=== PATIENT | female | born 1940 | race Caucasian/White ===

== ENCOUNTER → 2016-08-05 | Outpatient (CLI) | payer OTHER ==
[2016-08-05 14:19] LABS: BLOOD UREA NITROGEN 17 mg/dL (7-22); BUN/CREATININE RATIO 18.88 (6-20); CALCIUM 9.2 mg/dL (8.7-10.7); CHLORIDE 100 meq/L (98-112); CREATININE 0.9 mg/dL (0.50-1.20); GLUCOSE 128 mg/dL (78-110); SODIUM 141 meq/L (135-145)
[2016-08-05 14:20] LABS: ASPARTATE AMINO TRANSFERASE 54 IU/L (8-39); BILIRUBIN,TOTAL 0.7 mg/dL (0.3-1.2); HDL CHOLESTEROL 35 mg/dL (40-150); TOTAL PROTEIN 7.6 g/dL (6.1-8.0); TRIGLYCERIDES 204 mg/dL (44-200)
--- NOTE | 2016-08-05 14:59 | DI ---
XR L-SPINE MIN 4 VW,08/05/2016 11:16 AM: Clinical History: Low back pain Previous Exam: CT chest performed July 06, 2015 Findings: AP, lateral, coned-down lateral and oblique views of the lumbar spine are obtained, and demonstrate a compression deformity of the first lumbar vertebral body of approximately 50% compression. Peripheral vascular calcifications are seen. There is right stool throughout colon. Peripheral vascul ar calcifications are also noted. There is a 12 mm density overlying the right upper abdomen not seen on the CT angiogram. This most li yolanda represents a radiopaque density within the small bowel. Degenerative facet arthropathy is noted. There is no evidence of spondylolysis. There is grade 1 retrolisthesis of L2 on L3. Patient is status post cholecystectomy. There is partial lumbarization of the first sacral vertebral body. Impression: 1. Approximately 50% compression deformity of the first lumbar vertebral body. 2. Diffuse degenerative changes of the lumbar spine.
== END ==
LOC: LAB 11:09
PROVIDERS: ATTEND Obstetrics & Gynecology Gynecology
DX: M54.5 Low back pain (principal); I25.10 Atherosclerotic heart disease of native coronary artery without angina pectoris
CPT/HCPCS: 36415; 72110; 80048; 80061; 80076

== ENCOUNTER 2016-10-05 14:40 | Inpatient (IN) | payer OTHER ==
[2016-10-05] MEDS ORDERED: NORMAL SALINE 10 ML SYRINGE FLUSH IVP PRN ×2 (14:48→19:37)
[2016-10-05 14:56] LABS: BASOPHILS # (AUTO) 0.05 10*3/UL; BASOPHILS % (AUTO) 0.5 % (0-1); EOSINOPHILS % (AUTO) 0.8 % (0-8); HEMATOCRIT 43.6 % (37.0-47.0); HEMOGLOBIN 14.4 g/dL (12.0-16.0); IMM GRAN % (AUTO) 0.2 % (0-5); IMM GRAN# (AUTO) 0.02 10*3/UL; LYMPHOCYTES # (AUTO) 4.92 10*3/uL; LYMPHOCYTES % (AUTO) 47.2 % (10-50); MEAN CORPUSCULAR HEMOGLOBIN 29.7 PG (27-31); MEAN PLATELET VOLUME 12.7 FL (7.4-12.2); MONOCYTES # (AUTO) 0.87 10*3/UL (0.3-0.8); MONOCYTES % (AUTO) 8.3 % (5-15); NEUTROPHILS # (AUTO) 4.49 10*3/UL; RDW COEFFICIENT OF VARIATION 14.7 % (11.5-14.5); RED BLOOD COUNT 4.85 10^6/uL (4.20-5.40); WHITE BLOOD COUNT 10.43 10^3/uL (4.8-10.8)
[2016-10-05 14:57] LABS: PLATELET MORPHOLOGY COMMENT NORMAL MORPHOLOGY (NORM)
[2016-10-05 15:02] LABS: BILIRUBIN,TOTAL 0.7 mg/dL (0.3-1.2); CALCIUM 9.5 mg/dL (8.7-10.7); POTASSIUM 3.8 meq/L (3.8-5.2); TOTAL PROTEIN 7.5 g/dL (6.1-8.0)
[2016-10-05] MEDS: Sodium Chloride 0.9% 1,000 ML PRIMARY IV ONE ×4 (15:33→19:51)
[2016-10-05] MEDS ORDERED: MORPHINE SULFATE 4 MG/1 ML IVP ONE (15:35)
[2016-10-05] MEDS ORDERED: Sodium Chloride 0.9% 1,000 ML PRIMARY IV ONE (16:04)
[2016-10-05 17:52] LABS: BILIRUBIN,URINE SMALL (NEG); CLARITY,URINE Slightly Clo (CLEAR); GLUCOSE, URINE (UA) NEGATIVE (NEG); LEUKOCYTE ESTERASE ,URINE SMALL (NEG); NITRATE,URINE POSITIVE (NEG); OCCULT BLOOD,URINE Trace-intact (NEG); PH,URINE 8.5 (5.0-8.5); PROTEIN,URINE 100 mg/dl (NEG); URINE SAMPLE TYPE CLEAN CATCH URINE
[2016-10-05 17:53] LABS: BACTERIA,URINE FEW; RBC,URINE 0-1 /hpf; SQUAMOUS EPITHELIAL CELL,UR MODERATE
--- NOTE | 2016-10-05 18:41 | DI ---
CT ABDOMEN SCAN WITH IV CONTRAST, 10/05/2016 3:34 PM : Clinical History: Abdominal pain. Previous Exam: None at this facility. Scans are performed from the lower lung bases through the liver and kidneys with IV contrast. 70 ml o f Isovue 300 was injected IV. No rectal or oral contrast was ordered. The lung bases are clear. The liver is normal. The patient is status post cholecystectomy. Both adren al glands and the pancreas are normal. The spleen is small in size and has punctate calcifications th at typically are associated with prior exposure to either TB or histoplasmosis. Both kidneys are norm al in size, shape, position and contour. There is no hydronephrosis or hydroureter. No renal or urete ral calculi are present. There are no abnormal retrocrural or periaortic nodes. No ascites is present . READING: Normal CT abdomen scan. CT PELVIS SCAN WITH IV CONTRAST, 10/05/2016 3:34 PM: Clinical History: See above. Previous Exam: None at this facility. Scans are performed from just superior to the umbilicus to the symphysis pubis with IV contrast. This is the same bolus of contrast used for the CT scans of the abdomen. Scans through the lower abdomen and pelvis show no masses. There is a small amount of fluid in the cu l-de-sac. There is no adenopathy. The appendix is not visualized but there is no inflammatory mass ei ther in the cecal tip or in the right lower quadrant. The small bowel, terminal ileum, and ileocecal valve are normal. The ascending colon and the transverse colon have a normal appearance. Beginning at the splenic flexure and extending throughout the entire descending colon and the sigmoid colon is a diffuse pattern of mucosal thickening with periserosal inflammatory change. This distribution corresp onds to the left colic branch of the inferior mesenteric artery but sparing the distribution of the s uperior, middle, and inferior hemorrhoidal arterial branches. There is no gas in the bowel wall. Ther e is a small umbilical hernia through which only mesenteric fat has herniated. The patient is status post hysterectomy and bilateral salpingo-oophorectomy. READIN. There is abnormal thickening of the bowel wall with periserosal inflammatory/infiltrative change involving the descending colon from the splenic flexure (Jeffers's point) to the distal sigmoid colon. This corresponds to the vascular distribution of the left colic artery excluding the superior hemorr hoidal branch of the RICHARD. Ischemic colitis is suspected. There is no gas in the bowel wall. 2. Ascites.
--- NOTE | 2016-10-05 18:52 | PDOC ---
History and Physical - History of Present Illness Date and Time of Service: 10/05/2016 Chief Complaint: Abdominal pain of 3 days' duration History of Present Illness: This is a 76 years old female with medical history significant for history of hypertension, hypothyroidism and a non-ST HI back in July 2016 who came into the hospital because history of abdominal pain felt in the lower abdomen started about 3 days ago. The pain is constant, was severe when she came into the ER. She did say she vomited once. There was no diarrhea or bleeding per rectum or melena. She said she did have a bowel movement today. In the ER evaluation revealed ischemic colitis and hence the admission. Patient received some morphine in the ER and she rates her pain when I saw her was 4 out of 10. She denied dysuria. No chest pain and no shortness of breath. Past Medical History Medical History: 1. Coronary artery disease with non-ST HI in July 2016. 2. Hypertension. 3. Hypothyroidism. 4. Chronic hypoxemia supposed to be on oxygen but however she doesn't wear it all the time. She supposed to be on 2 L a day Surgical History: History of appendectomy Family History: Reviewed an Not Pertinent Past Social History: Doesn't smoke, rarely drinks no drugs. She moved her from [place] with her in 2014 Tobacco Use: Never Smoker Substance Use Type: None Alcohol Use: Rarely Medication / Allergies Home Medications: Home Medications Medication Instructions Recorded Confirmed Type ALPRAZolam Tab [Xanax Tab] 1 mg PO TID 07/06/15 10/05/16 History Duloxetine HCl 60 mg PO DAILY 07/06/16 10/05/16 History Aspirin [Aspir 81] 81 mg PO DAILY 10/05/16 10/05/16 History Clopidogrel [Plavix] 75 mg PO DAILY 10/05/16 10/05/16 History Furosemide 20 mg PO DAILY 10/05/16 10/05/16 History Levothyroxine Sodium [Levothroid] 175 mcg PO DAILY 10/05/16 10/05/16 History Magnesium Oxide 500 mg PO DAILY 10/05/16 10/05/16 History Metoprolol Tartrate 25 mg PO DAILY 10/05/16 10/05/16 History Potassium [Potassimin] 75 mg PO DAILY 10/05/16 10/05/16 History Allergies/Adverse Reactions: Allergies Allergy/AdvReac Type Severity Reaction Status Date / Time cephalexin monohydrate AdvReac NOT Verified 10/06/16 06:32 [From Keflex] APPLICABLE Review of Systems - Review of Systems All Systems: Reviewed & No Additional Complaints Except as Stated Exam - Vitals Vital Signs: Vital Signs Temperature 97.1 F Temperature Source Temporal Artery Scan Pulse Rate 84 Respiratory Rate 14 Blood Pressure 81/44 Pulse Ox 90 - General General Appearance: POSITIVE: Mild Distress Additional General Exam Details: Pale. - Head Head Exam: POSITIVE: Normal Inspection, Atraumatic - Eye Eye Exam: POSITIVE: Normal Appearance - ENT ENT Exam: POSITIVE: Mucous Membranes Dry - Neck Neck Exam: POSITIVE: Normal Inspection - Respiratory Respiratory Exam: POSITIVE: Clear to Auscultation - Bilaterally - Cardiovascular Cardiovascular Exam: POSITIVE: RRR - GI/Abdominal GI/Abdominal Exam: POSITIVE: Normal Bowel Sounds, Non Distended, Soft Additional GI/Abdominal Exam Details: Tenderness noted mostly in the lower abdomen. No guarding. - Rectal Rectal Exam: POSITIVE: Deferred - External Exam: POSITIVE: Deferred - Extremities Extremities Exam: POSITIVE: Normal Inspection - Back Back Exam: POSITIVE: Normal Inspection - Neurological Neurological Exam: POSITIVE: Alert, Oriented x 3, CN II-XII Intact, Moves All Extremities Equally - Psychiatric Psychiatric Exam: POSITIVE: Flat Affect - Integumentary Integumentary Exam: POSITIVE: Dry Results - Labs CBC and BMP: 10/06/16 05:08 10/06/16 05:08 - EKG Data Rate: Normal EKG Shows Normal: Sinus Rhythm - EKG Data When Compared to Previous EKG(s) There Are: Other (Sinus rhythm with first- degree AV block, low QRS voltage) - Imaging Status: Report Reviewed by Me (CT showed there is abnormal thickening of the bowel wall with. Serosal inflammatory/infiltrative changes involving the descending colon from the splenic flexure to the distal sigmoid. Ischemic colitis is suspected. Small amount of fluid.) Assessment and Plan - Patient Problems (1) Ischemic colitis Current Visit: Yes Status: Acute Comment: We'll keep her nothing by mouth except ice chips, put her on IV fluids and antibiotics. She was seen by Dr. Dorsey recommended supportive care for now. Repeat labs in the morning. Will repeat her lactate tonight. She came into the floor her blood pressure was 64 systolic with give her a bolus of fluids and she responded to the fluid challenge. (2) Hypertension Current Visit: Yes Status: Acute Comment: The daughter said she's been giving her 2 blood pressure medication but however she supposed to be on only one blood pressure medicine. Apparently they prescribed one blood pressure medication at [facility] and she was giving her also the old blood pressure medication which was discontinued. For the time being will hold her blood pressure medicines. She supposed to be only on metoprolol. And she was getting also Univasc. (3) History of coronary artery disease Current Visit: Yes Status: Acute Comment: We'll hold her Plavix and aspirin for now as she may need surgery. (4) DVT prophylaxis Current Visit: Yes Status: Acute Comment: Will put her on SCD boots (5) Possible urinary tract infection Current Visit: Yes Status: Acute Comment: Her UA is abnormal , culture was sent she will be covered with antibiotics for her ischemic colitis and that will also cover for the UTI
--- NOTE | 2016-10-05 19:33 | EKG ---
[address] [place] [address] [place] [address] Measurements Intervals [place] Rate: 79 P: 38 NE: 234 QRS: -2 QRSD: 67 T: 75 QT: 369 QTc: 403 Interpretive Statements SINUS RHYTHM WITH FIRST DEGREE AV BLOCK LOW QRS VOLTAGE [QRS DEFLECTION POSSIBLE OLD INFERIOR MYOCARDIAL INFARCTION Compared to ECG 07/07/2016 12:38:26 First degree AV block now present Electronically Signed On 10-06-16 17:14:55 MST by Yehuda Daigle [email or web address]
[2016-10-05] MEDS ORDERED: LIDOCAINE W/ SODIUM BICARB 0.5 ML SYR SUBD PRN (19:37)
--- NOTE | 2016-10-05 19:46 | CONSULT ---
Consult Note - Consult Consult Date: 10/05/16 Reason for Consult: PreOp Consulation : General Surgery Requesting Physician: Dr. Shirley Primary Care Provider: NONE NONE - History of Present Illness History of Present Illness: This 68-year-old female has a 3 day history of abdominal pain. She states that the pain was initially 10 out of 10 and now is down to 4 out of 10. Patient was given 4 mg of morphine in the emergency department. Patient denies any diarrhea. States her last normal bowel movement was before coming to the hospital. She states that she is not passing gas but again had a bowel movement today. Patient has known vomiting but states that she is nauseated. The pain was there from there first. Patient denies any pain with urination or increased frequency. Patient daughter tells us that they actually doubled up with her blood pressure medicine and apparently since approximately about July. Patient July had possible CA no cardiac stenting are bypass surgery done at this time. Patient currently is on aspirin a day and Plavix. Patient's white count is within normal limits along with her hemoglobin. She did have a slight UTI. CT scan was done which shows that she has a thickened: Starting at the splenic flexure all way down to the rectum. This encompasses the entire descending and sigmoid colon. Patient has some free fluid but there is no free air. Dr. Donohue (the radiologist) please patient has ischemic colitis but not infarcted bowel Review of Systems - Review of Systems -: Patient denies any urinary symptoms. She has abdominal complaints. Has nausea no vomiting. Has no diarrhea. Last bowel movement was today. Patient has any shortness breath or chest pains. Patient has high blood pressure. Patient denies any diabetes. Patient is hypothyroidism and on Synthroid. Review of systems otherwise unremarkable Past Medical History Medical History: 1. Coronary artery disease with non-ST CA in July 2016. 2. Tobacco Use: Former Smoker Substance Use Type: None Medication / Allergies Home Medications: Home Medications Medication Instructions Recorded Confirmed Type ALPRAZolam Tab [Xanax Tab] 1 mg PO TID 07/06/15 10/05/16 History Duloxetine HCl 60 mg PO DAILY 07/06/16 10/05/16 History Aspirin [Aspir 81] 81 mg PO DAILY 10/05/16 10/05/16 History Clopidogrel [Plavix] 75 mg PO DAILY 10/05/16 10/05/16 History Furosemide 20 mg PO DAILY 10/05/16 10/05/16 History Levothyroxine Sodium [Levothroid] 175 mcg PO DAILY 10/05/16 10/05/16 History Magnesium Oxide 500 mg PO DAILY 10/05/16 10/05/16 History Metoprolol Tartrate 25 mg PO DAILY 10/05/16 10/05/16 History Potassium [Potassimin] 75 mg PO DAILY 10/05/16 10/05/16 History Allergies/Adverse Reactions: Allergies Allergy/AdvReac Type Severity Reaction Status Date / Time cephalexin monohydrate AdvReac NOT Verified 10/05/16 16:30 [From Keflex] APPLICABLE Exam - Vitals Vital Signs: Vital Signs Temperature 97.1 F Temperature Source Temporal Artery Scan Pulse Rate 84 Respiratory Rate 14 Blood Pressure 81/44 Pulse Ox 90 - Head Head Exam: POSITIVE: Normocephalic, Atraumatic - Eye Eye Exam: POSITIVE: Normal Appearance, PERRL, EOMI - Neck Neck Exam: POSITIVE: No Tenderness - Respiratory Respiratory Exam: POSITIVE: Clear to Auscultation - Bilaterally, Breathing Non Labored - Cardiovascular Cardiovascular Exam: POSITIVE: RRR, No Murmur - GI/Abdominal GI/Abdominal Exam: POSITIVE: Soft, Distended, Guarding, No Masses, Rebound, No Hepatomegaly, No Splenomegaly - Rectal Rectal Exam: POSITIVE: Deferred Results - Labs CBC and BMP: 10/05/16 14:20 10/05/16 14:20 Assessment and Plan - Patient Problems (1) Ischemic colitis Current Visit: Yes Status: Acute - Assessment / Plan Additional Assessment/Plan Details: I think the patient may have ischemic colitis. Differential diagnosis also has included also of colitis, diverticulitis or microperforation of the bowel. Given the fact that the patient had CA in July she is at high risk for a another myocardial infarction and also surgery would carry increased risk of . I would like to try to stabilize the patient with IV fluids and antibiotics. Usually ischemic colitis is secondary to non-obstructive causes. I think maximizing her rehydration with increased perfusion. If the patient's white count are physical exam should become more worrisome would get a repeat CAT scan. If we need to patient need a surgery which would include a colostomy. Again I think the patient is at high risk for reinfarction in postoperative mortality. This is explained to her and her family.
[2016-10-05] MEDS ORDERED: MORPHINE SULFATE 2 MG/1 ML IVP PRN (19:47)
[2016-10-05] MEDS ORDERED: ONDANSETRON 4 MG/2 ML VIAL IVP PRN (19:48)
[2016-10-05] MEDS: Piperacillin/Tazobactam Inj 3.375 GM in Sodium Chloride 0.9% 100 ML IV SCH (19:58)
[2016-10-05] MEDS: Sodium Chloride 0.9% 1,000 ML PRIMARY IV SCH (20:05)
--- NOTE | 2016-10-05 21:07 | PDOC ---
Abdomen/Flank HPI - General Chief Complaint: Abdomen Pain Stated Complaint: abdominal pain Date Seen by Provider: 10/05/16 Time Seen by Provider: 14:40 Source: POSITIVE: Patient, Other (Daughter) Exam Limitations: POSITIVE: No limitations Nurse's Notes Reviewed & Considered: Yes EMS Report Reviewed & Considered: Verbal - History of Present Illness Initial Comments: The patient is a 76-year-old female who is brought to the emergency room by ambulance. Patient has had some abdominal pain, left greater than right for the last day or so; she states this became worse this morning around 8 AM. She called the ambulance and the ambulance administered the patient 4 mg of morphine sulfate and 4 mg of Zofran in the field. Emesis 1. Patient has had an appendectomy, cholecystectomy, hysterectomy, and a bilateral tubal ligation. An 18-gauge IV was started in the right antecubital area. No known fevers. No chills. No diarrhea. She has not been hungry. Blood pressure on arrival was 92/53. Daughter states that she she takes metoprolol for hypertension. She took Univasc daily for high blood pressure, but this was supposed to have been discontinued in July when patient started metoprolol. However, daughter states that she has been inadvertently given both these antihypertensive agents. No chest pain. Patient was evaluated for chest pain in [place] last year; catheterization reportedly showed a blockage in the coronary artery with good collateral vascularization, and no stenting or other interventions were attempted. Nonsmoker. Body Location Affected: REPORTS: Abdomen Timing: REPORTS: Constant (For 1-2 days. Patient states pain became worse around 8 AM today) Duration: >24 hours (Approximately 24 hours) Severity: Moderate Quality: REPORTS: "Pain" Abdominal Pain Onset Location: REPORTS: LUQ, LLQ, Suprapubic Abdominal Pain Radiation: REPORTS: No radiation Context: REPORTS: None Modifying Factors: improves with: Vomiting (Times one) Associated Symptoms: REPORTS: Denies symptoms, Vomiting (Times one) Similar Symptoms Previously: No Recent Care Received: REPORTS: Denies Any Prior Injuries Related to Current Complaint?: No - Patient Home Medications Home Medications: Home Medications ALPRAZolam Tab [Xanax Tab] 1 mg PO TID 07/06/15 Duloxetine HCl 60 mg PO DAILY 07/06/16 Aspirin [Aspir 81] 81 mg PO DAILY 10/05/16 Clopidogrel [Plavix] 75 mg PO DAILY 10/05/16 Furosemide 20 mg PO DAILY 10/05/16 Levothyroxine Sodium [Levothroid] 175 mcg PO DAILY 10/05/16 Magnesium Oxide 500 mg PO DAILY 10/05/16 Metoprolol Tartrate 25 mg PO DAILY 10/05/16 Potassium [Potassimin] 75 mg PO DAILY 10/05/16 - Patient Allergies Allergies/Adverse Reactions: Allergies Allergy/AdvReac Type Severity Reaction Status Date / Time cephalexin monohydrate AdvReac NOT Verified 10/05/16 16:30 [From [email or web address]] APPLICABLE Past Medical History - heen HEENT History: Denies History Cardiovascular History: Hypertension Respiratory History: Denies History Gastrointestinal History: GERD Genitourinary History: Denies History Endocrine History: Denies History Musculoskeletal History: Other (please comment) Prosthesis or Implant: No Additional Musculoskeletal History: RESTLESS LEG SYNDROME Neurological History: Denies History Blood Disorders: Denies History Psychiatric History: Depression History of Sexually Transmitted Diseases: No Female Reproductive History: Hysterectomy Cancer History: Denies History In Past Year Been Physically Harmed or Verbally Threatened: No History of MDRO: Unknown History of Other Communicable Diseases: No Tobacco Use: Never Smoker Alcohol Use: None Substance Use Type: None Previous Surgical History: Yes Type / Date of Surgery: HYSTERECTOMY. TUBAL. CHOLECYSTECTOMY. TONSILS. APPY Anesthesia Reactions: No Malignant Hyperthermia: No Significant Family History: No pertinent family hx Past Medical History Reviewed: Reviewed - No Changes ROS - Limitations ROS Limitations: No Limitations Constitution: REPORTS: Denies Symptoms Cardiovascular: REPORTS: Denies Cardiac Symptoms Respiratory: REPORTS: Denies Resp Symptoms Neurological: REPORTS: Denies Neuro Symptoms Gastrointestinal: REPORTS: Abdominal Pain, Nausea, Vomitting (Times one) Endocrine: REPORTS: Denies Symptoms Musculoskeletal: REPORTS: Denies MS Symptoms Genitourinary: REPORTS: Denies Symptoms Eyes: REPORTS: Denies Symptoms ENT: REPORTS: Denies Symptoms Skin: REPORTS: Denies Skin Symptoms Lympathic: REPORTS: Denies Lympathic Symptoms Immunologic: POSITIVE: Denies Symptoms Psychiatric: POSITIVE: Denies Psych Symptoms Abdominal/Flank Pain PE - General Appearance General Appearance: POSITIVE: Alert, Cooperative, No Acute Distress, No Evidence of Trauma - HEENT HEENT: POSITIVE: Head Inspection Nml, Eyes Inspection Nml, Ears Inspection Nml, Nose Inspection Nml, Oral/Dental Inspect. Nml, Pharynx Inspect. Nml, PERRL, EOMI - Neck Neck: POSITIVE: Normal Inspection, No Apparent Injury - Respiratory Respiratory: POSITIVE: No Respiratory Distress, Breath Sounds Normal, Chest Non- Tender - Cardiovascular Cardiovascular: POSITIVE: Regular Rate and Rhythm, Heart Sounds Normal, Equal Pulses, Strong Pulses Peripheral Pulses: Radial (R): 2+, Radial (L): 2+, Dorsalis-pedis (R): 2+, Dorsalis-pedis (L): 2+ - Chest Chest: POSITIVE: Non Tender - Abdomen Abdomen: Soft: (All Quadrants), Normal Bowel Sounds: (All Quadrants), Denies Tenderness: (RUQ), (RLQ), No Splenomegaly: (All Quadrants), No Hepatomegaly: ( All Quadrants), No Guarding: (All Quadrants), No Rebound: (All Quadrants), No Palpable Pulse: (All Quadrants), No Palpabale Mass: (All Quadrants), No Distention: (All Quadrants), No Rigidity: (All Quadrants), Tenderness Noted: ( LUQ), (LLQ) Additional Abdominal Details: Abdominal examination shows bowel sounds to be active. Patient indicates pain on palpation over mid abdomen and left upper and left lower quadrants. Abdominal ultrasound showed aorta to be normal. - Back Back: POSITIVE: Normal Inspection. NEGATIVE: CVA Tenderness (R), CVA Tenderness (L) - Skin Skin: POSITIVE: Intact, Normal For Race, Warm, Dry, No Rash - Extremities Extremity: Non-Tender: (All Extremities), Normal ROM: (All Extremities), Normal Inspection: (All Extremities) - Neurological Neurological: POSITIVE: Oriented X3, grounds cleaner Normal As Tested, Motor Normal, Sensation Normal, 5, 6 - Psychological Psychiatric: POSITIVE: Affect Appropriate, Mood Appropriate Images - Complete Complete: 1 - Area of pain Abdomen Progress - Results Reviewed by me Xrays/CTs/US Reviewed by me: Yes Discussed with Radiologist: Yes Radiology Findings: Thickening of colon from splenic flexure distally, compatible with ischemia in the distribution of the left colic artery Lab Results Reviewed: Yes Lab Results:: Laboratory Results 10/05/16 10/05/16 10/05/16 Range/Units 14:20 16:03 16:27 WBC 10.43 (4.8-10.8) 10^3/uL RBC 4.85 (4.20-5.40) 10^6/uL Hgb 14.4 (12.0-16.0) g/dL Hct 43.6 (37.0-47.0) % MCV 89.9 (81-99) FL MCH 29.7 (27-31) PG MCHC 33.0 (33-37) g/dL RDW Std Deviation 48.1 (39-50) fL RDW Coeff of Sharri 14.7 H (11.5-14.5) % Plt Count 372 H (140-350) 10*3/uL MPV 12.7 H (7.4-12.2) FL Immature Gran % (Auto) 0.2 (0-5) % Neut % (Auto) 43.0 L (50-80) % Lymph % (Auto) 47.2 (10-50) % [place] % (Auto) 8.3 (5-15) % Eos % (Auto) 0.8 (0-8) % Baso % (Auto) 0.5 (0-1) % Immature Gran # (Auto) 0.02 10*3/UL Neut # (Auto) 4.49 10*3/UL Lymph # (Auto) 4.92 10*3/uL [place] # (Auto) 0.87 H (0.3-0.8) 10*3/UL Eos # (Auto) 0.08 10*3/UL Baso # (Auto) 0.05 10*3/UL WBC Morphology Comment Normal morphology (NORM) Plt Morphology Comment Normal morphology (NORM) RBC Morph Comment Normal morphology (NORM) VBG pH (7.32-7.42) VBG pCO2 (45-55) mmHg VBG HCO3 (22-26) mmol/L VBG Base Excess (-2-2) MMOL/L Sodium 140 (135-145) meq/L Potassium 3.8 (3.8-5.2) meq/L Chloride 102 (98-112) meq/L Carbon Dioxide 22 L (23-33) meq/L Anion Gap 16 (5-20) BUN 19 (7-22) mg/dL Creatinine 1.0 (0.50-1.20) mg/dL Estimated GFR (>60 ml/min/1.73m(2)) BUN/Creatinine Ratio 19.00 (6-20) Glucose 124 H (78-110) mg/dL Calculated Osmolality 292.0 (267-292) mOsm/kg Lactic Acid 2.9 H (0.70-2.10) MMOL/L Calcium 9.5 (8.7-10.7) mg/dL Total Bilirubin 0.7 (0.3-1.2) mg/dL AST 64 H (8-39) IU/L ALT 18 (9-52) IU/L Alkaline Phosphatase 99 (38-126) IU/L Troponin I < 0.012 (< 0.040) ng/mL Total Protein 7.5 (6.1-8.0) g/dL Albumin 4.2 (3.5-4.8) g/dL Globulin 3.3 (2.50-4.10) g/dL Albumin/Globulin Ratio 1.20 L (1.3-2.0) mg/g Amylase 58 (30-110) U/L Lipase 68 (23-300) IU/L Ur Collection Type Urine Color Urine Clarity (CLEAR) Urine pH (5.0-8.5) Ur Specific [place] (1.005-1.030) Urine Protein (NEG) mg/dl Urine Glucose (UA) (NEG) mg/dL Urine Ketones (NEG) Urine Occult Blood (NEG) Urine Nitrate (NEG) Urine Bilirubin (NEG) Urine Urobilinogen (0.2) EU/dL Ur Leukocyte Esterase (NEG) Urine RBC (NONE) /hpf Urine WBC (NONE) Ur Squamous Epith Cells (NONE) Ur Renal Epithelial Cell (NONE) Urine Crystals Urine Bacteria (NONE) Urine Casts (NONE) Urine Mucus (NONE) Urine Trichomonas (NONE) Urine Yeast (NONE) Ur Culture Indicated? 10/05/16 10/05/16 Range/Units 17:27 17:43 WBC (4.8-10.8) 10^3/uL RBC (4.20-5.40) 10^6/uL Hgb (12.0-16.0) g/dL Hct (37.0-47.0) % MCV (81-99) FL MCH (27-31) PG MCHC (33-37) g/dL RDW Std Deviation (39-50) fL RDW Coeff of Sharri (11.5-14.5) % Plt Count (140-350) 10*3/uL MPV (7.4-12.2) FL Immature Gran % (Auto) (0-5) % Neut % (Auto) (50-80) % Lymph % (Auto) (10-50) % [place] % (Auto) (5-15) % Eos % (Auto) (0-8) % Baso % (Auto) (0-1) % Immature Gran # (Auto) 10*3/UL Neut # (Auto) 10*3/UL Lymph # (Auto) 10*3/uL [place] # (Auto) (0.3-0.8) 10*3/UL Eos # (Auto) 10*3/UL Baso # (Auto) 10*3/UL WBC Morphology Comment (NORM) Plt Morphology Comment (NORM) RBC Morph Comment (NORM) VBG pH 7.39 (7.32-7.42) VBG pCO2 35 L (45-55) mmHg VBG HCO3 21 L (22-26) mmol/L VBG Base Excess -4 L (-2-2) MMOL/L Sodium (135-145) meq/L Potassium (3.8-5.2) meq/L Chloride (98-112) meq/L Carbon Dioxide (23-33) meq/L Anion Gap (5-20) BUN (7-22) mg/dL Creatinine (0.50-1.20) mg/dL Estimated GFR (>60 ml/min/1.73m(2)) BUN/Creatinine Ratio (6-20) Glucose (78-110) mg/dL Calculated Osmolality (267-292) mOsm/kg Lactic Acid (0.70-2.10) MMOL/L Calcium (8.7-10.7) mg/dL Total Bilirubin (0.3-1.2) mg/dL AST (8-39) IU/L ALT (9-52) IU/L Alkaline Phosphatase (38-126) IU/L Troponin I (< 0.040) ng/mL Total Protein (6.1-8.0) g/dL Albumin (3.5-4.8) g/dL Globulin (2.50-4.10) g/dL Albumin/Globulin Ratio (1.3-2.0) mg/g Amylase (30-110) U/L Lipase (23-300) IU/L Ur Collection Type Clean catch urine Urine Color Yellow Urine Clarity Slightly christelle (CLEAR) Urine pH 8.5 (5.0-8.5) Ur Specific [place] 1.010 (1.005-1.030) Urine Protein 100 (NEG) mg/dl Urine Glucose (UA) Negative (NEG) mg/dL Urine Ketones Trace (NEG) Urine Occult Blood Trace-intact H (NEG) Urine Nitrate Positive H (NEG) Urine Bilirubin Small (NEG) Urine Urobilinogen 2.0 (0.2) EU/dL Ur Leukocyte Esterase Small (NEG) Urine RBC 0-1 (NONE) /hpf Urine WBC 9-14 (NONE) Ur Squamous Epith Cells Moderate (NONE) Ur Renal Epithelial Cell None (NONE) Urine Crystals None Urine Bacteria Few (NONE) Urine Casts None (NONE) Urine Mucus None (NONE) Urine Trichomonas None (NONE) Urine Yeast None (NONE) Ur Culture Indicated? Culture set - Patient's Progress Pain Medication Addressed: POSITIVE: Yes (Morphine sulfate) School/Work Release Addressed: POSITIVE: Not Applicable Re-examine Time: 15:30 Re-Examine Comment: Pain somewhat less after hydration and morphine sulfate. Still uncomfortable. Case discussed with Dr. Chester, surgeon. Diagnosis discussed with patient and patient's daughter. Patient admitted for further evaluation and treatment. Status: POSITIVE: Unchanged, Re-Examined - Consult Consult (If Yes, Name of Consulting MD & Time Called): Yes (Meeta Chester and [place], [id number] and 1924) Consulting MD will see pt:: POSITIVE: [facility] [place] Admit Counseled: POSITIVE: Patient, Family, RE: Lab Results, RE: Radiology Results, RE : DX, RE: Need for F/U Patient Care Time - Estimated PCT Patient Care Time (In Minutes): 60 Vital Signs - Recent Vital Signs Vital Signs: Vital Signs (Last 8 hours) Temp Pulse Pulse Resp BP BP BP 10/05/16 20:18 96.9 F 88 16 64/45 10/05/16 18:20 97.1 F 84 14 81/44 10/05/16 14:48 95.8 F L 67 22 92/53 Pulse Ox 10/05/16 20:18 92 10/05/16 18:20 90 10/05/16 14:48 96 - VS Reviewed Vital Signs Reviewed: Yes Discharge Clinical Impression: Mesenteric ischemia, UTI (urinary tract infection) Discharge Disposition: Admit to Inpatient Condition: Good Date Decision to Admit to Inpatient: 10/05/16 Time Decision to Admit to Inpatient: 15:30
[2016-10-06] MEDS: Piperacillin/Tazobactam Inj 3.375 GM in Sodium Chloride 0.9% 100 ML IV SCH ×4 (01:48→19:52)
[2016-10-06] MEDS: Sodium Chloride 0.9% 1,000 ML PRIMARY IV SCH ×4 (04:15→16:31)
[2016-10-06 05:35] LABS: BASOPHILS # (AUTO) 0.01 10*3/UL; BASOPHILS % (AUTO) 0.1 % (0-1); EOSINOPHILS % (AUTO) 0.1 % (0-8); HEMATOCRIT 42.4 % (37.0-47.0); HEMOGLOBIN 13.4 g/dL (12.0-16.0); IMM GRAN % (AUTO) 0.2 % (0-5); IMM GRAN# (AUTO) 0.03 10*3/UL; LYMPHOCYTES # (AUTO) 0.73 10*3/uL; LYMPHOCYTES % (AUTO) 5.6 % (10-50); MEAN CORPUSCULAR HGB CONC 31.6 g/dL (33-37); MEAN PLATELET VOLUME 12.6 FL (7.4-12.2); MONOCYTES # (AUTO) 1.63 10*3/UL (0.3-0.8); MONOCYTES % (AUTO) 12.5 % (5-15); NEUTROPHILS # (AUTO) 10.64 10*3/UL; NEUTROPHILS % (AUTO) 81.5 % (50-80); RED BLOOD COUNT 4.62 10^6/uL (4.20-5.40); WHITE BLOOD COUNT 13.05 10^3/uL (4.8-10.8)
[2016-10-06 05:41] LABS: BUN/CREATININE RATIO 24.54 (6-20); CREATININE 1.1 mg/dL (0.50-1.20); LACTATE 2.9 MMOL/L (0.70-2.10); POTASSIUM 4.9 meq/L (3.8-5.2); TOTAL PROTEIN 5.7 g/dL (6.1-8.0)
[2016-10-06 06:02] LABS: PLATELET MORPHOLOGY COMMENT NORMAL MORPHOLOGY (NORM)
[2016-10-06] MEDS ORDERED: LEVOTHYROXINE 88 MCG TABLET PO SCH (06:30)
--- NOTE | 2016-10-06 07:21 | PDOC(PROG) ---
Date and Time of Service: 10/06/2016 7:19 AM Interval History: Subjective She feels better than yesterday, she did have 2 bowel movements and they were loose. Not sure about blood. Objective : Data - Labs CBC and BMP: 10/06/16 05:08 10/06/16 05:08 Labs - Last 24 Hours: Laboratory Results 10/05/16 10/06/16 Range/Units 22:03 05:08 WBC 13.05 H (4.8-10.8) 10^3/uL RBC 4.62 (4.20-5.40) 10^6/uL Hgb 13.4 (12.0-16.0) g/dL Hct 42.4 (37.0-47.0) % MCV 91.8 (81-99) FL MCH 29.0 (27-31) PG MCHC 31.6 L (33-37) g/dL RDW Std Deviation 49.0 (39-50) fL RDW Coeff of Sharri 15.0 H (11.5-14.5) % Plt Count 349 (140-350) 10*3/uL MPV 12.6 H (7.4-12.2) FL Immature Gran % (Auto) 0.2 (0-5) % Neut % (Auto) 81.5 H (50-80) % Lymph % (Auto) 5.6 L (10-50) % [place] % (Auto) 12.5 (5-15) % Eos % (Auto) 0.1 (0-8) % Baso % (Auto) 0.1 (0-1) % Immature Gran # (Auto) 0.03 10*3/UL Neut # (Auto) 10.64 10*3/UL Lymph # (Auto) 0.73 10*3/uL [place] # (Auto) 1.63 H (0.3-0.8) 10*3/UL Eos # (Auto) 0.01 10*3/UL Baso # (Auto) 0.01 10*3/UL WBC Morphology Comment Normal morphology (NORM) Plt Morphology Comment Normal morphology (NORM) RBC Morph Comment Normal morphology (NORM) Sodium 142 (135-145) meq/L Potassium 4.9 D (3.8-5.2) meq/L Chloride 110 (98-112) meq/L Carbon Dioxide 19 L (23-33) meq/L Anion Gap 13 (5-20) BUN 27 H (7-22) mg/dL Creatinine 1.1 (0.50-1.20) mg/dL Estimated GFR (>60 ml/min/1.73m(2)) BUN/Creatinine Ratio 24.54 H (6-20) Glucose 134 H (78-110) mg/dL Calculated Osmolality 300.0 H (267-292) mOsm/kg Lactic Acid 2.8 H 2.9 H (0.70-2.10) MMOL/L Calcium 8.0 L (8.7-10.7) mg/dL Total Bilirubin 1.0 (0.3-1.2) mg/dL AST 156 H (8-39) IU/L ALT 90 H D (9-52) IU/L Alkaline Phosphatase 82 (38-126) IU/L Total Protein 5.7 L (6.1-8.0) g/dL Albumin 2.8 L (3.5-4.8) g/dL Globulin 2.9 (2.50-4.10) g/dL Albumin/Globulin Ratio 0.90 L (1.3-2.0) mg/g Objective : Exam - General General Appearance: No Acute Distress, Cooperative - Head Head Exam: Normal Inspection, Atraumatic - Eye Eye Exam: Normal Appearance - ENT ENT Exam: Normal Exam - Neck Neck Exam: Normal Inspection - Respiratory Respiratory Exam: Clear to Auscultation - Bilaterally - Cardiovascular Cardiovascular Exam: RRR - GI/Abdominal GI/Abdominal Exam: Normal Bowel Sounds, Non Distended, Soft Additional GI/Abdominal Exam Details: There is no rebound like yesterday, abdomen is soft tenderness is less than yesterday. No organomegaly. - Rectal Rectal Exam: Deferred - External Exam: Deferred - Extremities Extremities Exam: Normal Inspection - Back Back Exam: Normal Inspection - Neurological Neurological Exam: Alert, Oriented x 3, CN II-XII Intact, Moves All Extremities Equally - Psychiatric Psychiatric Exam: Normal Affect - Integumentary Integumentary Exam: Normal Color Assessment and Plan - Patient Problems (1) Ischemic colitis Current Visit: Yes Status: Acute Comment: Continue current antibiotics and fluid. Shortly after I saw the patient blood pressure dropped we gave her a bolus, will give another bolus of fluids, I spoke with Dr. Dorsey, he saw her and planning for surgery. We will use Levophed if we cannot keep her blood pressure up. (2) Hypertension Current Visit: Yes Status: Acute Comment: Continue holding her blood pressure medication for today (3) History of coronary artery disease Current Visit: Yes Status: Acute Comment: Continue holding the Plavix and aspirin for now (4) DVT prophylaxis Current Visit: Yes Status: Acute Comment: She is on SCD boots (5) Possible urinary tract infection Current Visit: Yes Status: Acute Comment: She is covered with antibiotics
[2016-10-06] MEDS ORDERED: Sodium Chloride 0.9% 500 ML IV ONE ×3 (07:27→08:12)
[2016-10-06] MEDS ORDERED: Norepinephrine Drip 8 MG in D5W 250 ML IV SCH (08:45)
[2016-10-06] MEDS ORDERED: NORMAL SALINE 10 ML SYRINGE FLUSH IVP PRN ×2 (08:48→11:50)
[2016-10-06] MEDS ORDERED: ONDANSETRON 4 MG/2 ML VIAL IVP PRN (08:48)
[2016-10-06] MEDS ORDERED: LIDOCAINE W/ SODIUM BICARB 0.5 ML SYR SUBD PRN (08:48)
--- NOTE | 2016-10-06 08:56 | PDOC(PROG) ---
Date and Time of Service: 10/06/2016 at 855 Interval History: Patient states that her pain is little bit better but she is now has developed more hypotension that is not responding to fluid boluses. Patient has been started on Levothroid. Her white count is elevated and she is now running a fever above 101 Objective : Data - Labs CBC and BMP: 10/06/16 05:08 10/06/16 05:08 Labs - Last 24 Hours: Laboratory Results 10/05/16 10/06/16 10/06/16 Range/Units 22:03 05:05 05:08 WBC 13.05 H (4.8-10.8) 10^3/uL RBC 4.62 (4.20-5.40) 10^6/uL Hgb 13.4 (12.0-16.0) g/dL Hct 42.4 (37.0-47.0) % MCV 91.8 (81-99) FL MCH 29.0 (27-31) PG MCHC 31.6 L (33-37) g/dL RDW Std Deviation 49.0 (39-50) fL RDW Coeff of Sharri 15.0 H (11.5-14.5) % Plt Count 349 (140-350) 10*3/uL MPV 12.6 H (7.4-12.2) FL Immature Gran % (Auto) 0.2 (0-5) % Neut % (Auto) 81.5 H (50-80) % Lymph % (Auto) 5.6 L (10-50) % [place] % (Auto) 12.5 (5-15) % Eos % (Auto) 0.1 (0-8) % Baso % (Auto) 0.1 (0-1) % Immature Gran # (Auto) 0.03 10*3/UL Neut # (Auto) 10.64 10*3/UL Lymph # (Auto) 0.73 10*3/uL [place] # (Auto) 1.63 H (0.3-0.8) 10*3/UL Eos # (Auto) 0.01 10*3/UL Baso # (Auto) 0.01 10*3/UL WBC Morphology Comment Normal morphology (NORM) Plt Morphology Comment Normal morphology (NORM) RBC Morph Comment Normal morphology (NORM) Sodium 142 (135-145) meq/L Potassium 4.9 D (3.8-5.2) meq/L Chloride 110 (98-112) meq/L Carbon Dioxide 19 L (23-33) meq/L Anion Gap 13 (5-20) BUN 27 H (7-22) mg/dL Creatinine 1.1 (0.50-1.20) mg/dL Estimated GFR (>60 ml/min/1.73m(2)) BUN/Creatinine Ratio 24.54 H (6-20) Glucose 134 H (78-110) mg/dL Calculated Osmolality 300.0 H (267-292) mOsm/kg Lactic Acid 2.8 H 2.9 H (0.70-2.10) MMOL/L Calcium 8.0 L (8.7-10.7) mg/dL Total Bilirubin 1.0 (0.3-1.2) mg/dL AST 156 H (8-39) IU/L ALT 90 H D (9-52) IU/L Alkaline Phosphatase 82 (38-126) IU/L Troponin I < 0.012 (< 0.040) ng/mL Total Protein 5.7 L (6.1-8.0) g/dL Albumin 2.8 L (3.5-4.8) g/dL Globulin 2.9 (2.50-4.10) g/dL Albumin/Globulin Ratio 0.90 L (1.3-2.0) mg/g - Vital Signs Vital Signs and I&O: Vital Signs - Last Taken Temperature 97.6 F 10/06/16 08:49 Pulse Rate 73 10/06/16 08:49 Respiratory Rate 16 10/06/16 08:49 Blood Pressure 68/41 10/06/16 08:49 Pulse Ox 95 10/06/16 08:49 Intake and Output (24hr x 4 totals) 10/04/16 10/05/16 10/06/16 10/07/16 05:59 05:59 05:59 05:59 Intake Total 2311 150 Output Total 495 Balance 1816 150 Objective : Exam - GI/Abdominal GI/Abdominal Exam: Distended, Guarding, Rebound Assessment and Plan - Patient Problems (1) Ischemic colitis Current Visit: Yes Status: Acute - Assessment / Plan Additional Assessment/Plan Details: Since patient's white count is going up and afebrile and given the fact that she is now hypotensive unresponsive to fluid boluses I think the patient's condition is deteriorating. Even though she is extremely high risk for postoperative morbidity and mortality I do think the only thing we can do at this time is to exploratory surgery possible left colon resection and colostomy. This is explained to her she understands this. Alternative option is just concerned continue medical management. She understands the differentiation between the 2 and has elected to have surgery.
[2016-10-06] MEDS ORDERED: LEVOTHYROXINE SODIUM 175 MCG PO SCH (09:00)
[2016-10-06] MEDS ORDERED: Lactated Ringers 1,000 ML PRIMARY IV ONE ×2 (09:01→10:00)
[2016-10-06] MEDS ORDERED: ETOMIDATE 2 MG/1 ML - 20 ML IVP ONE (09:13)
[2016-10-06] MEDS ORDERED: MIDAZOLAM 5 MG/1 ML ONE (09:13)
[2016-10-06] MEDS ORDERED: fentaNYL Inj 250 MCG/5 ML VIAL ONE (09:13)
[2016-10-06] MEDS ORDERED: Sodium Chloride 0.9% vial 0 ML ONE (09:14)
[2016-10-06] MEDS ORDERED: VECURONIUM BROMIDE 10 MG VIAL ONE (09:14)
[2016-10-06] MEDS: Norepinephrine Drip 8 MG in D5W 250 ML IV SCH ×3 (09:35→17:35)
--- NOTE | 2016-10-06 09:41 | DI ---
ABDOMINAL AORTIC ULTRASOUND, 10/05/2016 2:49 PM Clinical History: Abdominal pain. Previous Exam: None at this facility. Scans are performed in multiple projections through the length of the aorta and iliac arteries with t he high resolution linear array probe. Color Doppler ultrasound was also performed. The abdominal aorta is visualized from the upper abdominal region to the bifurcation. The caliber is normal throughout. There is no evidence of plaque disease. Reading: Normal abdominal aortic ultrasound exam.
[2016-10-06] MEDS ORDERED: Sodium Chloride 0.9% 500 ML ONE ×2 (10:01→13:16)
[2016-10-06] MEDS ORDERED: LIDOCAINE W/ SODIUM BICARB 0.5 ML SYR ONE ×2 (10:01→13:19)
[2016-10-06] MEDS ORDERED: Albumin Human Soln 25% 200 ML IV ONE (10:44)
[2016-10-06] MEDS ORDERED: LIDOCAINE HCL 2 % 10 ML JELLY URO-JECT TOPICAL ONE (11:03)
[2016-10-06] MEDS ORDERED: Lactated Ringers 4,000 ML PRIMARY IV ONE (11:16)
[2016-10-06 11:19] LABS: ABG BASE EXCESS -8 MMOL/L (-2-2); ABG HCO3 18 (22-26); ABG PH 7.32 (7.35-7.45); ABG TCO2 19 MMOL/L (23-27); COLLECTION SITE ART LINE
[2016-10-06 11:20] LABS: ABG OXYGEN SATURATION 99 % (90-100); ALLEN TEST N
[2016-10-06] MEDS ORDERED: fentaNYL Inj 100 MCG/2 ML VIAL IVP PRN (11:53)
[2016-10-06] MEDS ORDERED: Prochlorperazine Edisylate Inj 10mg/2ml vial IVP PRN (11:53)
[2016-10-06] MEDS ORDERED: KETAMINE 100 MG/1 ML - 5 ML ONE (11:56)
[2016-10-06] MEDS ORDERED: Lactated Ringers 1,000 ML PRIMARY IV SCH (12:00)
[2016-10-06] MEDS ORDERED: GLYCOPYRROLATE 0.2 MG/1 ML VIAL ONE (12:36)
[2016-10-06] MEDS ORDERED: NEOSTIGMINE 1 MG/1 ML - 10 ML ONE (12:36)
[2016-10-06] MEDS ORDERED: HEPARIN 500 UNIT/5 ML SYRINGE FOR CENTRAL LINE IVP ONE ×2 (12:42→12:43)
[2016-10-06] MEDS: HYDROmorphone 2 MG/1 ML IVP PRN ×2 (13:26→13:34)
--- NOTE | 2016-10-06 13:58 | GEN.OPNOTE ---
Operative Note Surgery Date: 10/06/16 Preoperative Diagnosis: Ischemic colitis Postoperative Diagnosis: Ischemic colitis with sepsis Procedure: Left hemicolectomy with a colostomy Surgeon: Pablo Dorsey MD Printer Helper: Amari Robins MD Anesthesia Provider: Lorenzo Alejandro CRNA Anesthesia Type: General Estimated Blood Loss (mL): 250 Fluids: Lactated Ringer's please see anesthesia notes in EMR Pathology: Leftcolon Sent Indications: Patient was admitted with abdominal pain. CT scan was consistent with ischemic colitis. Patient is tried with conservative management with IV fluids and antibiotics. Patient developed what appeared to be sepsis therefore need to be taken the OR Findings: Ischemic colitis of the entire left colon Complications: None Operative Summary: Patient brought in operative room. Placed supine position. Given general tracheal anesthesia. Prepped draped sterile fashion. Timeout performed per protocols. Made a midline incision incision from the xiphoid process to the pubic symphysis. Hemostased electrocautery dissection to subcutaneous tissue with electrocautery cautery. Dissected in the linea alba with left cautery and then bluntly into the abdominal cavity through the perineum. . I then explored the abdominal cavity and found the patient to have 300 mL of purulent material in the pelvis and above the liver. This is all washed out and aspirated. The Patient's left colon was thickened. This is the area that was consistent with ischemic colitis on CT scan. I went down to an area above the rectum that look to be viable. I Maded a defect in the mesentery and fired the stapler across the just above rectum. I then dissected out the sigmoid colon which appeared the most involved. I placed and fired the linear stapler dividing the bowel. Clamp divided the mesentery I removed a portion the colon. The colon was opened on the back table it had ischemic colitis of the mucosa. This was appeared be infarcted bowel. Therefore I resected a mobilize entire left colon taken down the splenic flexure. We then fired the stapler across what appeared to be the proximal transverse colon. There we then clamped divided the mesentery handed off the colon as surgical specimen. We then mobilize the colon from its mesenteric attachments of breath and given of length to bring out a colostomy. We then made a small defect in the lateral aspect of abdominal wall just above the level of the umbilicus. I then made a defect in the fascia and brought out the bowel for colostomy. We irrigated until clear. We reinspected there appeared to be a little hematoma at the inferior aspect of the spleen. This appeared be a very small capsular tear. Gentle pressure was held on this and there is no active bleeding. We irrigated until clear. Satisfied is adequate hemostasis. We then closed the midline incision with #1 Prolene continuous running suture. Started at this. Aspect incision and ran this to above the umbilicus and then finished started on the inferior aspect incision ran a backup to the other suture line. Skin was irrigated and we closed the skin with milagro. I then resected some more the small bowel and brought out via skin level colostomy and matured this. A colostomy bag was then placed. Patient tolerated procedure well the were no complications. Patient Problems - Patient Problem List (1) Ischemic colitis Current Visit: Yes Status: Acute
[2016-10-06] MEDS ORDERED: SODIUM BICARBONATE 8.4% - 50 ML ADULT SYRINGE ONE (14:17)
[2016-10-06 14:21] LABS: COLLECTION SITE ART LINE
[2016-10-06 14:22] LABS: ABG BASE EXCESS -11 MMOL/L (-2-2); ABG HCO3 17 (22-26); ABG OXYGEN SATURATION 85 % (90-100); ABG TCO2 19 MMOL/L (23-27); ALLEN TEST N
--- NOTE | 2016-10-06 14:23 | CD ---
[facility] [place] [email or web address]
[2016-10-06 14:26] LABS: FIO2/O2 60%
[2016-10-06 15:06] LABS: COLLECTION SITE ART LINE
[2016-10-06 15:07] LABS: ABG BASE EXCESS -8 MMOL/L (-2-2); ABG HCO3 22 (22-26); ABG OXYGEN SATURATION 91 % (90-100); ABG PH 7.09 (7.35-7.45); ABG TCO2 24 MMOL/L (23-27); ALLEN TEST N
[2016-10-06 15:09] LABS: FIO2/O2 6LPM
--- NOTE | 2016-10-06 15:42 | DI ---
AP CHEST X-RAY, 10/06/2016 1:00 PM : Clinical History: Bowel ischemia. Sepsis. Status post insertion of a right subclavian line. Verificat ion of catheter position. Previous Exam: 07/06/2016. On this view, the patient took a very shallow inspiration. There is no acute soft tissue or bony abno rmality. The right subclavian catheter terminates in the distal superior vena cava. There is cardiome harper without CHF. The descending aorta is quite prominent. When stable, a CT scan of the chest prefer ably with IV contrast is recommended. There is no acute infiltrate or effusion. There is no pneumotho rax. Mediastinal structures are normal. There are no pulmonary nodules. Readin. There is no pneumothorax and the catheter tip is in the distal superior vena cava. 2. Cardiomegaly without CHF. 3. The descending aorta is quite prominent and when the patient is stabilized, a CT scan of the ches t is recommended. This should be performed with IV contrast if the patient can tolerate the contrast.
[2016-10-06] MEDS: Lactated Ringers 1,000 ML PRIMARY IV SCH ×2 (15:45→21:12)
[2016-10-06 15:56] LABS: ABG PH 7.12 (7.35-7.45); COLLECTION SITE Art Line
[2016-10-06 15:57] LABS: ABG BASE EXCESS -7 MMOL/L (-2-2); ABG HCO3 23 (22-26); ABG OXYGEN SATURATION 91 % (90-100); ABG TCO2 25 MMOL/L (23-27); ALLEN TEST N
[2016-10-06 15:58] LABS: FIO2/O2 6L SM
[2016-10-06 16:57] LABS: ABG HCO3 23 (22-26); ABG PH 7.26 (7.35-7.45); ABG TCO2 25 MMOL/L (23-27); COLLECTION SITE ART LINE
[2016-10-06 16:58] LABS: ABG BASE EXCESS -4 MMOL/L (-2-2); ABG OXYGEN SATURATION 93 % (90-100); ALLEN TEST N
[2016-10-06 16:59] LABS: FIO2/O2 93
[2016-10-06 18:41] LABS: ABG BASE EXCESS -6 MMOL/L (-2-2); ABG HCO3 21 (22-26); ABG OXYGEN SATURATION 96 % (90-100); ABG PH 7.29 (7.35-7.45); ABG TCO2 22 MMOL/L (23-27); ALLEN TEST N; COLLECTION SITE ART LINE
[2016-10-06 18:42] LABS: FIO2/O2 70%
[2016-10-06 20:16] LABS: HEMATOCRIT 35.4 % (37.0-47.0); HEMOGLOBIN 11.3 g/dL (12.0-16.0); MEAN CORPUSCULAR HEMOGLOBIN 29.9 PG (27-31); MEAN CORPUSCULAR HGB CONC 31.9 g/dL (33-37); MEAN PLATELET VOLUME 12.5 FL (7.4-12.2); RDW COEFFICIENT OF VARIATION 15.3 % (11.5-14.5); RED BLOOD COUNT 3.78 10^6/uL (4.20-5.40)
[2016-10-06 20:24] LABS: BILIRUBIN,TOTAL 1.1 mg/dL (0.3-1.2); BUN/CREATININE RATIO 27.77 (6-20); CALCIUM 7.9 mg/dL (8.7-10.7); CREATININE 0.9 mg/dL (0.50-1.20); POTASSIUM 4.5 meq/L (3.8-5.2)
[2016-10-06 20:37] LABS: PLATELET MORPHOLOGY COMMENT NORMAL MORPHOLOGY (NORM)
[2016-10-06 20:38] LABS: BAND NEUTROPHILS % 16 % (0-10); BASOPHILS % (MANUAL) 0 % (0-1); EOSINOPHILS % (MANUAL) 0 % (0-8); LYMPHOCYTES % (MANUAL) 35 % (10-50); METAMYELOCYTES % 2 %; MONOCYTES % (MANUAL) 6 % (0-12); NEUTROPHILS % (MANUAL) 41 % (50-80)
[2016-10-06] MEDS: MORPHINE SULFATE 2 MG/1 ML IVP PRN (22:08)
[2016-10-06 23:49] LABS: COLLECTION SITE ART LINE
[2016-10-06 23:50] LABS: ABG BASE EXCESS -5 MMOL/L (-2-2); ABG HCO3 21 (22-26); ABG OXYGEN SATURATION 98 % (90-100); ABG PH 7.35 (7.35-7.45); ABG TCO2 22 MMOL/L (23-27); ALLEN TEST N; FIO2/O2 70%
[2016-10-07] MEDS: MORPHINE SULFATE 2 MG/1 ML IVP PRN ×3 (01:10→08:46)
[2016-10-07] MEDS: Piperacillin/Tazobactam Inj 3.375 GM in Sodium Chloride 0.9% 100 ML IV SCH ×3 (01:19→13:47)
[2016-10-07] MEDS ORDERED: HALOPERIDOL LACTATE 5 MG/1 ML AMPULE IVP ONE (03:15)
[2016-10-07] MEDS: Lactated Ringers 1,000 ML PRIMARY IV SCH ×2 (03:47→10:30)
[2016-10-07 06:18] LABS: ALLEN TEST N; COLLECTION SITE Art Line; FIO2/O2 60% Vapo
[2016-10-07 06:20] LABS: ABG HCO3 21 (22-26); ABG PH 7.38 (7.35-7.45); ABG TCO2 22 MMOL/L (23-27)
[2016-10-07 06:21] LABS: ABG BASE EXCESS -5 MMOL/L (-2-2); ABG OXYGEN SATURATION 95 % (90-100)
[2016-10-07] MEDS ORDERED: LEVOTHYROXINE 88 MCG TABLET PO SCH (06:30)
[2016-10-07 06:33] LABS: BASOPHILS # (AUTO) 0.01 10*3/UL; BASOPHILS % (AUTO) 0.1 % (0-1)
[2016-10-07 06:42] LABS: BILIRUBIN,TOTAL 1.4 mg/dL (0.3-1.2); BUN/CREATININE RATIO 24.44 (6-20); CREATININE 0.9 mg/dL (0.50-1.20); EOSINOPHILS % (AUTO) 0.4 % (0-8); HEMOGLOBIN 11.3 g/dL (12.0-16.0); IMM GRAN % (AUTO) 0.3 % (0-5); IMM GRAN# (AUTO) 0.03 10*3/UL; LYMPHOCYTES # (AUTO) 1.03 10*3/uL; LYMPHOCYTES % (AUTO) 10.1 % (10-50); MEAN CORPUSCULAR HEMOGLOBIN 30.1 PG (27-31); MEAN CORPUSCULAR HGB CONC 32.3 g/dL (33-37); MEAN PLATELET VOLUME 13.3 FL (7.4-12.2); MONOCYTES # (AUTO) 1.38 10*3/UL (0.3-0.8); MONOCYTES % (AUTO) 13.5 % (5-15); NEUTROPHILS # (AUTO) 7.73 10*3/UL; NEUTROPHILS % (AUTO) 75.6 % (50-80); POTASSIUM 4.3 meq/L (3.8-5.2); RDW COEFFICIENT OF VARIATION 15.5 % (11.5-14.5); RED BLOOD COUNT 3.75 10^6/uL (4.20-5.40); TOTAL PROTEIN 5.1 g/dL (6.1-8.0); WHITE BLOOD COUNT 10.22 10^3/uL (4.8-10.8)
[2016-10-07 06:47] LABS: PLATELET MORPHOLOGY COMMENT NORMAL MORPHOLOGY (NORM)
[2016-10-07] MEDS: Norepinephrine Drip 8 MG in D5W 250 ML IV SCH ×2 (08:03→08:47)
--- NOTE | 2016-10-07 08:38 | GEN.OPNOTE ---
Operative Note Surgery Date: 10/06/16 Preoperative Diagnosis: Sepsis with ischemic bowel Postoperative Diagnosis: Sepsis with ischemic bowel Procedure: Insertion of a central line Surgeon: Pablo Dorsey MD Anesthesia Provider: Lorenzo Alejandro CRNA Anesthesia Type: General Estimated Blood Loss (mL): 2 Operative Summary: After the patient had a colon resection with colostomy a central line was needed. Surgical team re-prepped draped. Patient was prepped draped sterile fashion Timeout performed per protocols. I decided to use right subclavian vein. Large bore needle was inserted into the subclavian vein without any difficulty. Guidewire was placed. Using Seldinger technique central line was placed. The line is placed to 15 cm. There is secured in place. All 3 ports were aspirated and flushed with 3 mL of heparinized saline. Chest x-ray showed that there is no pneumothorax line in good position. Sterile dressing applied Patient Problems - Patient Problem List (1) Ischemic colitis Current Visit: Yes Status: Acute
[2016-10-07] MEDS ORDERED: NALOXONE 0.4 MG/1 ML VIAL IVP PRN (08:51)
--- NOTE | 2016-10-07 08:51 | PDOC(PROG) ---
Subjective Post Op Day: postop day 1 Hoyos Catheter: Yes Flatus: No Diet: NPO Ambulating: No Date and Time of Service: 10/07/2016 at 848 Interval History: Patient is actually doing better today. She is having no discomfort. Objective : Data - Labs CBC and BMP: 10/07/16 05:54 10/07/16 05:54 Labs - Last 24 Hours: Laboratory Results 10/06/16 10/06/16 10/06/16 Range/Units 08:54 11:01 13:11 WBC (4.8-10.8) 10^3/uL RBC (4.20-5.40) 10^6/uL Hgb (12.0-16.0) g/dL Hct (37.0-47.0) % MCV (81-99) FL MCH (27-31) PG MCHC (33-37) g/dL RDW Std Deviation (39-50) fL RDW Coeff of Sharri (11.5-14.5) % Plt Count (140-350) 10*3/uL MPV (7.4-12.2) FL Immature Gran % (Auto) (0-5) % Neut % (Auto) (50-80) % Lymph % (Auto) (10-50) % [place] % (Auto) (5-15) % Eos % (Auto) (0-8) % Baso % (Auto) (0-1) % Immature Gran # (Auto) 10*3/UL Neut # (Auto) 10*3/UL Lymph # (Auto) 10*3/uL [place] # (Auto) (0.3-0.8) 10*3/UL Eos # (Auto) 10*3/UL Baso # (Auto) 10*3/UL Neutrophils % (Manual) (50-80) % Band Neutrophils % (0-10) % Lymphocytes % (Manual) (10-50) % Monocytes % (Manual) (0-12) % Eosinophils % (Manual) (0-8) % Basophils % (Manual) (0-1) % Metamyelocytes % % Myelocytes % Promyelocytes % Blast Cells WBC Morphology Comment (NORM) Plt Morphology Comment (NORM) RBC Morph Comment (NORM) ABG pH 7.32 L 7.20 L (7.35-7.45) ABG pCO2 35 44 H (34-38) MMHG ABG pO2 163 H 61 L (65-75) MMHG ABG HCO3 18 L 17 L (22-26) ABG Total CO2 19 L 19 L (23-27) MMOL/L ABG O2 Saturation 99 85 L (90-100) % ABG Base Excess -8 L -11 L (-2-2) MMOL/L Yoandy Test N N FiO2 100% vent 60% Sodium (135-145) meq/L Potassium (3.8-5.2) meq/L Chloride (98-112) meq/L Carbon Dioxide (23-33) meq/L Anion Gap (5-20) BUN (7-22) mg/dL Creatinine (0.50-1.20) mg/dL Estimated GFR (>60 ml/min/1.73m(2)) BUN/Creatinine Ratio (6-20) Glucose (78-110) mg/dL Calculated Osmolality (267-292) mOsm/kg Lactic Acid (0.70-2.10) MMOL/L Calcium (8.7-10.7) mg/dL Total Bilirubin (0.3-1.2) mg/dL AST (8-39) IU/L ALT (9-52) IU/L Alkaline Phosphatase (38-126) IU/L Total Protein (6.1-8.0) g/dL Albumin (3.5-4.8) g/dL Globulin (2.50-4.10) g/dL Albumin/Globulin Ratio (1.3-2.0) mg/g Blood Type A POSITIVE Antibody Screen Negative Crossmatch See Detail 10/06/16 10/06/16 10/06/16 Range/Units 14:26 15:42 16:38 WBC (4.8-10.8) 10^3/uL RBC (4.20-5.40) 10^6/uL Hgb (12.0-16.0) g/dL Hct (37.0-47.0) % MCV (81-99) FL MCH (27-31) PG MCHC (33-37) g/dL RDW Std Deviation (39-50) fL RDW Coeff of Sharri (11.5-14.5) % Plt Count (140-350) 10*3/uL MPV (7.4-12.2) FL Immature Gran % (Auto) (0-5) % Neut % (Auto) (50-80) % Lymph % (Auto) (10-50) % [place] % (Auto) (5-15) % Eos % (Auto) (0-8) % Baso % (Auto) (0-1) % Immature Gran # (Auto) 10*3/UL Neut # (Auto) 10*3/UL Lymph # (Auto) 10*3/uL [place] # (Auto) (0.3-0.8) 10*3/UL Eos # (Auto) 10*3/UL Baso # (Auto) 10*3/UL Neutrophils % (Manual) (50-80) % Band Neutrophils % (0-10) % Lymphocytes % (Manual) (10-50) % Monocytes % (Manual) (0-12) % Eosinophils % (Manual) (0-8) % Basophils % (Manual) (0-1) % Metamyelocytes % % Myelocytes % Promyelocytes % Blast Cells WBC Morphology Comment (NORM) Plt Morphology Comment (NORM) RBC Morph Comment (NORM) ABG pH 7.09 L 7.12 L 7.26 L (7.35-7.45) ABG pCO2 73 H 69 H 52 H (34-38) MMHG ABG pO2 86 H 81 H 79 H (65-75) MMHG ABG HCO3 22 23 23 (22-26) ABG Total CO2 24 25 25 (23-27) MMOL/L ABG O2 Saturation 91 91 93 (90-100) % ABG Base Excess -8 L -7 L -4 L (-2-2) MMOL/L Yoandy Test N N N FiO2 6lpm 6l sm 93 Sodium (135-145) meq/L Potassium (3.8-5.2) meq/L Chloride (98-112) meq/L Carbon Dioxide (23-33) meq/L Anion Gap (5-20) BUN (7-22) mg/dL Creatinine (0.50-1.20) mg/dL Estimated GFR (>60 ml/min/1.73m(2)) BUN/Creatinine Ratio (6-20) Glucose (78-110) mg/dL Calculated Osmolality (267-292) mOsm/kg Lactic Acid (0.70-2.10) MMOL/L Calcium (8.7-10.7) mg/dL Total Bilirubin (0.3-1.2) mg/dL AST (8-39) IU/L ALT (9-52) IU/L Alkaline Phosphatase (38-126) IU/L Total Protein (6.1-8.0) g/dL Albumin (3.5-4.8) g/dL Globulin (2.50-4.10) g/dL Albumin/Globulin Ratio (1.3-2.0) mg/g Blood Type Antibody Screen Crossmatch 10/06/16 10/06/16 10/06/16 Range/Units 18:17 20:12 22:51 WBC 5.90 (4.8-10.8) 10^3/uL RBC 3.78 L (4.20-5.40) 10^6/uL Hgb 11.3 L (12.0-16.0) g/dL Hct 35.4 L (37.0-47.0) % MCV 93.7 (81-99) FL MCH 29.9 (27-31) PG MCHC 31.9 L (33-37) g/dL RDW Std Deviation 49.9 (39-50) fL RDW Coeff of Sharri 15.3 H (11.5-14.5) % Plt Count 278 (140-350) 10*3/uL MPV 12.5 H (7.4-12.2) FL Immature Gran % (Auto) (0-5) % Neut % (Auto) (50-80) % Lymph % (Auto) (10-50) % [place] % (Auto) (5-15) % Eos % (Auto) (0-8) % Baso % (Auto) (0-1) % Immature Gran # (Auto) 10*3/UL Neut # (Auto) 10*3/UL Lymph # (Auto) 10*3/uL [place] # (Auto) (0.3-0.8) 10*3/UL Eos # (Auto) 10*3/UL Baso # (Auto) 10*3/UL Neutrophils % (Manual) 41 L (50-80) % Band Neutrophils % 16 H (0-10) % Lymphocytes % (Manual) 35 (10-50) % Monocytes % (Manual) 6 (0-12) % Eosinophils % (Manual) 0 (0-8) % Basophils % (Manual) 0 (0-1) % Metamyelocytes % 2 % Myelocytes % Not Reportable Promyelocytes % Not Reportable Blast Cells Not Reportable WBC Morphology Comment Normal morphology (NORM) Plt Morphology Comment Normal morphology (NORM) RBC Morph Comment Normal morphology (NORM) ABG pH 7.29 L 7.35 (7.35-7.45) ABG pCO2 43 H 38 (34-38) MMHG ABG pO2 94 H 102 H (65-75) MMHG ABG HCO3 21 L 21 L (22-26) ABG Total CO2 22 L 22 L (23-27) MMOL/L ABG O2 Saturation 96 98 (90-100) % ABG Base Excess -6 L -5 L (-2-2) MMOL/L Yoandy Test N N FiO2 70% 70% Sodium 143 (135-145) meq/L Potassium 4.5 (3.8-5.2) meq/L Chloride 110 (98-112) meq/L Carbon Dioxide 22 L (23-33) meq/L Anion Gap 11 (5-20) BUN 25 H (7-22) mg/dL Creatinine 0.9 (0.50-1.20) mg/dL Estimated GFR (>60 ml/min/1.73m(2)) BUN/Creatinine Ratio 27.77 H (6-20) Glucose 93 (78-110) mg/dL Calculated Osmolality 299.0 H (267-292) mOsm/kg Lactic Acid (0.70-2.10) MMOL/L Calcium 7.9 L (8.7-10.7) mg/dL Total Bilirubin 1.1 (0.3-1.2) mg/dL AST 81 H (8-39) IU/L ALT 84 H (9-52) IU/L Alkaline Phosphatase 59 (38-126) IU/L Total Protein 5.0 L (6.1-8.0) g/dL Albumin 2.7 L (3.5-4.8) g/dL Globulin 2.3 L (2.50-4.10) g/dL Albumin/Globulin Ratio 1.10 L (1.3-2.0) mg/g Blood Type Antibody Screen Crossmatch 10/06/16 10/07/16 10/07/16 Range/Units 23:15 05:54 06:14 WBC 10.22 (4.8-10.8) 10^3/uL RBC 3.75 L (4.20-5.40) 10^6/uL Hgb 11.3 L (12.0-16.0) g/dL Hct 35.0 L (37.0-47.0) % MCV 93.3 (81-99) FL MCH 30.1 (27-31) PG MCHC 32.3 L (33-37) g/dL RDW Std Deviation 50.8 H (39-50) fL RDW Coeff of Sharri 15.5 H (11.5-14.5) % Plt Count 264 (140-350) 10*3/uL MPV 13.3 H (7.4-12.2) FL Immature Gran % (Auto) 0.3 (0-5) % Neut % (Auto) 75.6 (50-80) % Lymph % (Auto) 10.1 (10-50) % [place] % (Auto) 13.5 (5-15) % Eos % (Auto) 0.4 (0-8) % Baso % (Auto) 0.1 (0-1) % Immature Gran # (Auto) 0.03 10*3/UL Neut # (Auto) 7.73 10*3/UL Lymph # (Auto) 1.03 10*3/uL [place] # (Auto) 1.38 H (0.3-0.8) 10*3/UL Eos # (Auto) 0.04 10*3/UL Baso # (Auto) 0.01 10*3/UL Neutrophils % (Manual) (50-80) % Band Neutrophils % (0-10) % Lymphocytes % (Manual) (10-50) % Monocytes % (Manual) (0-12) % Eosinophils % (Manual) (0-8) % Basophils % (Manual) (0-1) % Metamyelocytes % % Myelocytes % Promyelocytes % Blast Cells WBC Morphology Comment Normal morphology (NORM) Plt Morphology Comment Normal morphology (NORM) RBC Morph Comment Normal morphology (NORM) ABG pH 7.38 (7.35-7.45) ABG pCO2 35 (34-38) MMHG ABG pO2 75 (65-75) MMHG ABG HCO3 21 L (22-26) ABG Total CO2 22 L (23-27) MMOL/L ABG O2 Saturation 95 (90-100) % ABG Base Excess -5 L (-2-2) MMOL/L Yoandy Test N FiO2 60% vapo Sodium 139 (135-145) meq/L Potassium 4.3 (3.8-5.2) meq/L Chloride 109 (98-112) meq/L Carbon Dioxide 24 (23-33) meq/L Anion Gap 6 (5-20) BUN 22 (7-22) mg/dL Creatinine 0.9 (0.50-1.20) mg/dL Estimated GFR (>60 ml/min/1.73m(2)) BUN/Creatinine Ratio 24.44 H (6-20) Glucose 106 (78-110) mg/dL Calculated Osmolality 290.0 (267-292) mOsm/kg Lactic Acid 1.3 (0.70-2.10) MMOL/L Calcium 8.0 L (8.7-10.7) mg/dL Total Bilirubin 1.4 H (0.3-1.2) mg/dL AST 53 H (8-39) IU/L ALT 69 H (9-52) IU/L Alkaline Phosphatase 61 (38-126) IU/L Total Protein 5.1 L (6.1-8.0) g/dL Albumin 2.6 L (3.5-4.8) g/dL Globulin 2.5 (2.50-4.10) g/dL Albumin/Globulin Ratio 1.00 L (1.3-2.0) mg/g Blood Type Antibody Screen Crossmatch - Vital Signs Vital Signs and I&O: Vital Signs - Last Taken Temperature 98.0 F 10/07/16 08:00 Pulse Rate 92 10/07/16 08:00 Respiratory Rate 20 10/07/16 08:00 Blood Pressure 140/58 10/07/16 08:00 Pulse Ox 93 10/07/16 08:00 Intake and Output (24hr x 4 totals) 10/05/16 10/06/16 10/07/16 10/08/16 05:59 05:59 05:59 05:59 Intake Total 2424 5377 15 Output Total 682 1550 125 Balance 1816 9822 -110 Objective : Exam - General General Appearance: No Acute Distress, Cooperative - Respiratory Respiratory Exam: Clear to Auscultation - Bilaterally, Breathing Non Labored - Cardiovascular Cardiovascular Exam: RRR - GI/Abdominal GI/Abdominal Exam: Soft Additional GI/Abdominal Exam Details: Patient has incisional pain. Ostomy is pink no flatus yet. Dressings are dry - Neurological Neurological Exam: Alert, Oriented x 3, CN II-XII Intact Assessment and Plan - Patient Problems (1) Ischemic colitis Current Visit: Yes Status: Acute - Assessment / Plan Additional Assessment/Plan Details: Patient is postop day 1 from having a colon resection and colostomy. Again she had ischemic colitis with purulent material in the abdomen. Her blood pressures look really well but is still on pressors. I believe that she can be slowly weaned off the pressors but this be up to the hospitalist. I would continue antibiotics. Patient having NG tube removed and started on a clear liquid diet. She may dangle feet at bedside. I would wait another 24 hours before starting any subcutaneous heparin products. Continue pneumatic compression stockings. I would continue the Hoyos catheter for monitoring. Would consider starting the patient on a [employer] demand only and possibly adding iv tylenol for pain control. this is 1 g every 6 hours.
[2016-10-07] MEDS ORDERED: MORPHINE SULFATE/PF PCA 30 MG/30 ML IV SCH (09:00)
--- NOTE | 2016-10-07 09:42 | EKG ---
[address] [address] Measurements Intervals [place] Rate: 143 P: ND: 0 QRS: -11 QRSD: 87 T: 60 QT: 235 QTc: 318 Interpretive Statements ATRIAL FIBRILLATION WITH RAPID VENTRICULAR RESPONSE LOW QRS VOLTAGE [QRS DEFLECTION < 0.5/1.0 mV IN LIMB/CHEST LEADS] MINIMAL ST DEPRESSION [0.025+ mV ST DEPRESSION] Compared to ECG 10/05/2016 19:31:25 ST (T wave) deviation now present Sinus rhythm no longer present First degree AV block no longer present Myocardial infarct finding no longer present Electronically Signed On 10-07-16 12:34:07 MST by Polo Garber MD [email or web address]
--- NOTE | 2016-10-07 09:43 | CRNA.PROGR ---
Anesthesia Note Anesthesia Progress Note: Ms. Cormier is in the ICU, sitting up in bed and AAO and appropriately conversant. I was able to discuss her anesthetic course with her and she has no questions. At the time of this visit she appears to be in Afib and the Hospitalist is aware. Laboratory Results 10/05/16 10/05/16 10/05/16 Range/Units 14:20 16:03 16:27 WBC 10.43 (4.8-10.8) 10^3/uL RBC 4.85 (4.20-5.40) 10^6/uL Hgb 14.4 (12.0-16.0) g/dL Hct 43.6 (37.0-47.0) % MCV 89.9 (81-99) FL MCH 29.7 (27-31) PG MCHC 33.0 (33-37) g/dL RDW Std Deviation 48.1 (39-50) fL RDW Coeff of Sharri 14.7 H (11.5-14.5) % Plt Count 372 H (140-350) 10*3/uL MPV 12.7 H (7.4-12.2) FL Immature Gran % (Auto) 0.2 (0-5) % Neut % (Auto) 43.0 L (50-80) % Lymph % (Auto) 47.2 (10-50) % [place] % (Auto) 8.3 (5-15) % Eos % (Auto) 0.8 (0-8) % Baso % (Auto) 0.5 (0-1) % Immature Gran # (Auto) 0.02 10*3/UL Neut # (Auto) 4.49 10*3/UL Lymph # (Auto) 4.92 10*3/uL [place] # (Auto) 0.87 H (0.3-0.8) 10*3/UL Eos # (Auto) 0.08 10*3/UL Baso # (Auto) 0.05 10*3/UL Neutrophils % (Manual) (50-80) % Band Neutrophils % (0-10) % Lymphocytes % (Manual) (10-50) % Monocytes % (Manual) (0-12) % Eosinophils % (Manual) (0-8) % Basophils % (Manual) (0-1) % Metamyelocytes % % Myelocytes % Promyelocytes % Blast Cells WBC Morphology Comment Normal morphology (NORM) Plt Morphology Comment Normal morphology (NORM) RBC Morph Comment Normal morphology (NORM) ABG pH (7.35-7.45) ABG pCO2 (34-38) MMHG ABG pO2 (65-75) MMHG ABG HCO3 (22-26) ABG Total CO2 (23-27) MMOL/L ABG O2 Saturation (90-100) % ABG Base Excess (-2-2) MMOL/L Yoandy Test VBG pH (7.32-7.42) VBG pCO2 (45-55) mmHg VBG HCO3 (22-26) mmol/L VBG Base Excess (-2-2) MMOL/L FiO2 Sodium 140 (135-145) meq/L Potassium 3.8 (3.8-5.2) meq/L Chloride 102 (98-112) meq/L Carbon Dioxide 22 L (23-33) meq/L Anion Gap 16 (5-20) BUN 19 (7-22) mg/dL Creatinine 1.0 (0.50-1.20) mg/dL Estimated GFR (>60 ml/min/1.73m(2)) BUN/Creatinine Ratio 19.00 (6-20) Glucose 124 H (78-110) mg/dL Calculated Osmolality 292.0 (267-292) mOsm/kg Lactic Acid 2.9 H (0.70-2.10) MMOL/L Calcium 9.5 (8.7-10.7) mg/dL Total Bilirubin 0.7 (0.3-1.2) mg/dL AST 64 H (8-39) IU/L ALT 18 (9-52) IU/L Alkaline Phosphatase 99 (38-126) IU/L Troponin I < 0.012 (< 0.040) ng/mL Total Protein 7.5 (6.1-8.0) g/dL Albumin 4.2 (3.5-4.8) g/dL Globulin 3.3 (2.50-4.10) g/dL Albumin/Globulin Ratio 1.20 L (1.3-2.0) mg/g Amylase 58 (30-110) U/L Lipase 68 (23-300) IU/L Ur Collection Type Urine Color Urine Clarity (CLEAR) Urine pH (5.0-8.5) Ur Specific [place] (1.005-1.030) Urine Protein (NEG) mg/dl Urine Glucose (UA) (NEG) mg/dL Urine Ketones (NEG) Urine Occult Blood (NEG) Urine Nitrate (NEG) Urine Bilirubin (NEG) Urine Urobilinogen (0.2) EU/dL Ur Leukocyte Esterase (NEG) Urine RBC (NONE) /hpf Urine WBC (NONE) Ur Squamous Epith Cells (NONE) Ur Renal Epithelial Cell (NONE) Urine Crystals Urine Bacteria (NONE) Urine Casts (NONE) Urine Mucus (NONE) Urine Trichomonas (NONE) Urine Yeast (NONE) Ur Culture Indicated? Blood Type Antibody Screen Crossmatch 10/05/16 10/05/16 10/05/16 Range/Units 17:27 17:43 22:03 WBC (4.8-10.8) 10^3/uL RBC (4.20-5.40) 10^6/uL Hgb (12.0-16.0) g/dL Hct (37.0-47.0) % MCV (81-99) FL MCH (27-31) PG MCHC (33-37) g/dL RDW Std Deviation (39-50) fL RDW Coeff of Sharri (11.5-14.5) % Plt Count (140-350) 10*3/uL MPV (7.4-12.2) FL Immature Gran % (Auto) (0-5) % Neut % (Auto) (50-80) % Lymph % (Auto) (10-50) % [place] % (Auto) (5-15) % Eos % (Auto) (0-8) % Baso % (Auto) (0-1) % Immature Gran # (Auto) 10*3/UL Neut # (Auto) 10*3/UL Lymph # (Auto) 10*3/uL [place] # (Auto) (0.3-0.8) 10*3/UL Eos # (Auto) 10*3/UL Baso # (Auto) 10*3/UL Neutrophils % (Manual) (50-80) % Band Neutrophils % (0-10) % Lymphocytes % (Manual) (10-50) % Monocytes % (Manual) (0-12) % Eosinophils % (Manual) (0-8) % Basophils % (Manual) (0-1) % Metamyelocytes % % Myelocytes % Promyelocytes % Blast Cells WBC Morphology Comment (NORM) Plt Morphology Comment (NORM) RBC Morph Comment (NORM) ABG pH (7.35-7.45) ABG pCO2 (34-38) MMHG ABG pO2 (65-75) MMHG ABG HCO3 (22-26) ABG Total CO2 (23-27) MMOL/L ABG O2 Saturation (90-100) % ABG Base Excess (-2-2) MMOL/L Yoandy Test VBG pH 7.39 (7.32-7.42) VBG pCO2 35 L (45-55) mmHg VBG HCO3 21 L (22-26) mmol/L VBG Base Excess -4 L (-2-2) MMOL/L FiO2 Sodium (135-145) meq/L Potassium (3.8-5.2) meq/L Chloride (98-112) meq/L Carbon Dioxide (23-33) meq/L Anion Gap (5-20) BUN (7-22) mg/dL Creatinine (0.50-1.20) mg/dL Estimated GFR (>60 ml/min/1.73m(2)) BUN/Creatinine Ratio (6-20) Glucose (78-110) mg/dL Calculated Osmolality (267-292) mOsm/kg Lactic Acid 2.8 H (0.70-2.10) MMOL/L Calcium (8.7-10.7) mg/dL Total Bilirubin (0.3-1.2) mg/dL AST (8-39) IU/L ALT (9-52) IU/L Alkaline Phosphatase (38-126) IU/L Troponin I (< 0.040) ng/mL Total Protein (6.1-8.0) g/dL Albumin (3.5-4.8) g/dL Globulin (2.50-4.10) g/dL Albumin/Globulin Ratio (1.3-2.0) mg/g Amylase (30-110) U/L Lipase (23-300) IU/L Ur Collection Type Clean catch urine Urine Color Yellow Urine Clarity Slightly christelle (CLEAR) Urine pH 8.5 (5.0-8.5) Ur Specific [place] 1.010 (1.005-1.030) Urine Protein 100 (NEG) mg/dl Urine Glucose (UA) Negative (NEG) mg/dL Urine Ketones Trace (NEG) Urine Occult Blood Trace-intact H (NEG) Urine Nitrate Positive H (NEG) Urine Bilirubin Small (NEG) Urine Urobilinogen 2.0 (0.2) EU/dL Ur Leukocyte Esterase Small (NEG) Urine RBC 0-1 (NONE) /hpf Urine WBC 9-14 (NONE) Ur Squamous Epith Cells Moderate (NONE) Ur Renal Epithelial Cell None (NONE) Urine Crystals None Urine Bacteria Few (NONE) Urine Casts None (NONE) Urine Mucus None (NONE) Urine Trichomonas None (NONE) Urine Yeast None (NONE) Ur Culture Indicated? Culture set Blood Type Antibody Screen Crossmatch 10/06/16 10/06/16 10/06/16 Range/Units 05:05 05:08 08:54 WBC 13.05 H (4.8-10.8) 10^3/uL RBC 4.62 (4.20-5.40) 10^6/uL Hgb 13.4 (12.0-16.0) g/dL Hct 42.4 (37.0-47.0) % MCV 91.8 (81-99) FL MCH 29.0 (27-31) PG MCHC 31.6 L (33-37) g/dL RDW Std Deviation 49.0 (39-50) fL RDW Coeff of Sharri 15.0 H (11.5-14.5) % Plt Count 349 (140-350) 10*3/uL MPV 12.6 H (7.4-12.2) FL Immature Gran % (Auto) 0.2 (0-5) % Neut % (Auto) 81.5 H (50-80) % Lymph % (Auto) 5.6 L (10-50) % [place] % (Auto) 12.5 (5-15) % Eos % (Auto) 0.1 (0-8) % Baso % (Auto) 0.1 (0-1) % Immature Gran # (Auto) 0.03 10*3/UL Neut # (Auto) 10.64 10*3/UL Lymph # (Auto) 0.73 10*3/uL [place] # (Auto) 1.63 H (0.3-0.8) 10*3/UL Eos # (Auto) 0.01 10*3/UL Baso # (Auto) 0.01 10*3/UL Neutrophils % (Manual) (50-80) % Band Neutrophils % (0-10) % Lymphocytes % (Manual) (10-50) % Monocytes % (Manual) (0-12) % Eosinophils % (Manual) (0-8) % Basophils % (Manual) (0-1) % Metamyelocytes % % Myelocytes % Promyelocytes % Blast Cells WBC Morphology Comment Normal morphology (NORM) Plt Morphology Comment Normal morphology (NORM) RBC Morph Comment Normal morphology (NORM) ABG pH (7.35-7.45) ABG pCO2 (34-38) MMHG ABG pO2 (65-75) MMHG ABG HCO3 (22-26) ABG Total CO2 (23-27) MMOL/L ABG O2 Saturation (90-100) % ABG Base Excess (-2-2) MMOL/L Yoandy Test VBG pH (7.32-7.42) VBG pCO2 (45-55) mmHg VBG HCO3 (22-26) mmol/L VBG Base Excess (-2-2) MMOL/L FiO2 Sodium 142 (135-145) meq/L Potassium 4.9 D (3.8-5.2) meq/L Chloride 110 (98-112) meq/L Carbon Dioxide 19 L (23-33) meq/L Anion Gap 13 (5-20) BUN 27 H (7-22) mg/dL Creatinine 1.1 (0.50-1.20) mg/dL Estimated GFR (>60 ml/min/1.73m(2)) BUN/Creatinine Ratio 24.54 H (6-20) Glucose 134 H (78-110) mg/dL Calculated Osmolality 300.0 H (267-292) mOsm/kg Lactic Acid 2.9 H (0.70-2.10) MMOL/L Calcium 8.0 L (8.7-10.7) mg/dL Total Bilirubin 1.0 (0.3-1.2) mg/dL AST 156 H (8-39) IU/L ALT 90 H D (9-52) IU/L Alkaline Phosphatase 82 (38-126) IU/L Troponin I < 0.012 (< 0.040) ng/mL Total Protein 5.7 L (6.1-8.0) g/dL Albumin 2.8 L (3.5-4.8) g/dL Globulin 2.9 (2.50-4.10) g/dL Albumin/Globulin Ratio 0.90 L (1.3-2.0) mg/g Amylase (30-110) U/L Lipase (23-300) IU/L Ur Collection Type Urine Color Urine Clarity (CLEAR) Urine pH (5.0-8.5) Ur Specific [place] (1.005-1.030) Urine Protein (NEG) mg/dl Urine Glucose (UA) (NEG) mg/dL Urine Ketones (NEG) Urine Occult Blood (NEG) Urine Nitrate (NEG) Urine Bilirubin (NEG) Urine Urobilinogen (0.2) EU/dL Ur Leukocyte Esterase (NEG) Urine RBC (NONE) /hpf Urine WBC (NONE) Ur Squamous Epith Cells (NONE) Ur Renal Epithelial Cell (NONE) Urine Crystals Urine Bacteria (NONE) Urine Casts (NONE) Urine Mucus (NONE) Urine Trichomonas (NONE) Urine Yeast (NONE) Ur Culture Indicated? Blood Type A POSITIVE Antibody Screen Negative Crossmatch See Detail 10/06/16 10/06/16 10/06/16 Range/Units 11:01 13:11 14:26 WBC (4.8-10.8) 10^3/uL RBC (4.20-5.40) 10^6/uL Hgb (12.0-16.0) g/dL Hct (37.0-47.0) % MCV (81-99) FL MCH (27-31) PG MCHC (33-37) g/dL RDW Std Deviation (39-50) fL RDW Coeff of Sharri (11.5-14.5) % Plt Count (140-350) 10*3/uL MPV (7.4-12.2) FL Immature Gran % (Auto) (0-5) % Neut % (Auto) (50-80) % Lymph % (Auto) (10-50) % [place] % (Auto) (5-15) % Eos % (Auto) (0-8) % Baso % (Auto) (0-1) % Immature Gran # (Auto) 10*3/UL Neut # (Auto) 10*3/UL Lymph # (Auto) 10*3/uL [place] # (Auto) (0.3-0.8) 10*3/UL Eos # (Auto) 10*3/UL Baso # (Auto) 10*3/UL Neutrophils % (Manual) (50-80) % Band Neutrophils % (0-10) % Lymphocytes % (Manual) (10-50) % Monocytes % (Manual) (0-12) % Eosinophils % (Manual) (0-8) % Basophils % (Manual) (0-1) % Metamyelocytes % % Myelocytes % Promyelocytes % Blast Cells WBC Morphology Comment (NORM) Plt Morphology Comment (NORM) RBC Morph Comment (NORM) ABG pH 7.32 L 7.20 L 7.09 L (7.35-7.45) ABG pCO2 35 44 H 73 H (34-38) MMHG ABG pO2 163 H 61 L 86 H (65-75) MMHG ABG HCO3 18 L 17 L 22 (22-26) ABG Total CO2 19 L 19 L 24 (23-27) MMOL/L ABG O2 Saturation 99 85 L 91 (90-100) % ABG Base Excess -8 L -11 L -8 L (-2-2) MMOL/L Yoandy Test N N N VBG pH (7.32-7.42) VBG pCO2 (45-55) mmHg VBG HCO3 (22-26) mmol/L VBG Base Excess (-2-2) MMOL/L FiO2 100% vent 60% 6lpm Sodium (135-145) meq/L Potassium (3.8-5.2) meq/L Chloride (98-112) meq/L Carbon Dioxide (23-33) meq/L Anion Gap (5-20) BUN (7-22) mg/dL Creatinine (0.50-1.20) mg/dL Estimated GFR (>60 ml/min/1.73m(2)) BUN/Creatinine Ratio (6-20) Glucose (78-110) mg/dL Calculated Osmolality (267-292) mOsm/kg Lactic Acid (0.70-2.10) MMOL/L Calcium (8.7-10.7) mg/dL Total Bilirubin (0.3-1.2) mg/dL AST (8-39) IU/L ALT (9-52) IU/L Alkaline Phosphatase (38-126) IU/L Troponin I (< 0.040) ng/mL Total Protein (6.1-8.0) g/dL Albumin (3.5-4.8) g/dL Globulin (2.50-4.10) g/dL Albumin/Globulin Ratio (1.3-2.0) mg/g Amylase (30-110) U/L Lipase (23-300) IU/L Ur Collection Type Urine Color Urine Clarity (CLEAR) Urine pH (5.0-8.5) Ur Specific [place] (1.005-1.030) Urine Protein (NEG) mg/dl Urine Glucose (UA) (NEG) mg/dL Urine Ketones (NEG) Urine Occult Blood (NEG) Urine Nitrate (NEG) Urine Bilirubin (NEG) Urine Urobilinogen (0.2) EU/dL Ur Leukocyte Esterase (NEG) Urine RBC (NONE) /hpf Urine WBC (NONE) Ur Squamous Epith Cells (NONE) Ur Renal Epithelial Cell (NONE) Urine Crystals Urine Bacteria (NONE) Urine Casts (NONE) Urine Mucus (NONE) Urine Trichomonas (NONE) Urine Yeast (NONE) Ur Culture Indicated? Blood Type Antibody Screen Crossmatch 10/06/16 10/06/16 10/06/16 Range/Units 15:42 16:38 18:17 WBC (4.8-10.8) 10^3/uL RBC (4.20-5.40) 10^6/uL Hgb (12.0-16.0) g/dL Hct (37.0-47.0) % MCV (81-99) FL MCH (27-31) PG MCHC (33-37) g/dL RDW Std Deviation (39-50) fL RDW Coeff of Sharri (11.5-14.5) % Plt Count (140-350) 10*3/uL MPV (7.4-12.2) FL Immature Gran % (Auto) (0-5) % Neut % (Auto) (50-80) % Lymph % (Auto) (10-50) % [place] % (Auto) (5-15) % Eos % (Auto) (0-8) % Baso % (Auto) (0-1) % Immature Gran # (Auto) 10*3/UL Neut # (Auto) 10*3/UL Lymph # (Auto) 10*3/uL [place] # (Auto) (0.3-0.8) 10*3/UL Eos # (Auto) 10*3/UL Baso # (Auto) 10*3/UL Neutrophils % (Manual) (50-80) % Band Neutrophils % (0-10) % Lymphocytes % (Manual) (10-50) % Monocytes % (Manual) (0-12) % Eosinophils % (Manual) (0-8) % Basophils % (Manual) (0-1) % Metamyelocytes % % Myelocytes % Promyelocytes % Blast Cells WBC Morphology Comment (NORM) Plt Morphology Comment (NORM) RBC Morph Comment (NORM) ABG pH 7.12 L 7.26 L 7.29 L (7.35-7.45) ABG pCO2 69 H 52 H 43 H (34-38) MMHG ABG pO2 81 H 79 H 94 H (65-75) MMHG ABG HCO3 23 23 21 L (22-26) ABG Total CO2 25 25 22 L (23-27) MMOL/L ABG O2 Saturation 91 93 96 (90-100) % ABG Base Excess -7 L -4 L -6 L (-2-2) MMOL/L Yoandy Test N N N VBG pH (7.32-7.42) VBG pCO2 (45-55) mmHg VBG HCO3 (22-26) mmol/L VBG Base Excess (-2-2) MMOL/L FiO2 6l sm 93 70% Sodium (135-145) meq/L Potassium (3.8-5.2) meq/L Chloride (98-112) meq/L Carbon Dioxide (23-33) meq/L Anion Gap (5-20) BUN (7-22) mg/dL Creatinine (0.50-1.20) mg/dL Estimated GFR (>60 ml/min/1.73m(2)) BUN/Creatinine Ratio (6-20) Glucose (78-110) mg/dL Calculated Osmolality (267-292) mOsm/kg Lactic Acid (0.70-2.10) MMOL/L Calcium (8.7-10.7) mg/dL Total Bilirubin (0.3-1.2) mg/dL AST (8-39) IU/L ALT (9-52) IU/L Alkaline Phosphatase (38-126) IU/L Troponin I (< 0.040) ng/mL Total Protein (6.1-8.0) g/dL Albumin (3.5-4.8) g/dL Globulin (2.50-4.10) g/dL Albumin/Globulin Ratio (1.3-2.0) mg/g Amylase (30-110) U/L Lipase (23-300) IU/L Ur Collection Type Urine Color Urine Clarity (CLEAR) Urine pH (5.0-8.5) Ur Specific [place] (1.005-1.030) Urine Protein (NEG) mg/dl Urine Glucose (UA) (NEG) mg/dL Urine Ketones (NEG) Urine Occult Blood (NEG) Urine Nitrate (NEG) Urine Bilirubin (NEG) Urine Urobilinogen (0.2) EU/dL Ur Leukocyte Esterase (NEG) Urine RBC (NONE) /hpf Urine WBC (NONE) Ur Squamous Epith Cells (NONE) Ur Renal Epithelial Cell (NONE) Urine Crystals Urine Bacteria (NONE) Urine Casts (NONE) Urine Mucus (NONE) Urine Trichomonas (NONE) Urine Yeast (NONE) Ur Culture Indicated? Blood Type Antibody Screen Crossmatch 10/06/16 10/06/16 10/06/16 Range/Units 20:12 22:51 23:15 WBC 5.90 (4.8-10.8) 10^3/uL RBC 3.78 L (4.20-5.40) 10^6/uL Hgb 11.3 L (12.0-16.0) g/dL Hct 35.4 L (37.0-47.0) % MCV 93.7 (81-99) FL MCH 29.9 (27-31) PG MCHC 31.9 L (33-37) g/dL RDW Std Deviation 49.9 (39-50) fL RDW Coeff of Sharri 15.3 H (11.5-14.5) % Plt Count 278 (140-350) 10*3/uL MPV 12.5 H (7.4-12.2) FL Immature Gran % (Auto) (0-5) % Neut % (Auto) (50-80) % Lymph % (Auto) (10-50) % [place] % (Auto) (5-15) % Eos % (Auto) (0-8) % Baso % (Auto) (0-1) % Immature Gran # (Auto) 10*3/UL Neut # (Auto) 10*3/UL Lymph # (Auto) 10*3/uL [place] # (Auto) (0.3-0.8) 10*3/UL Eos # (Auto) 10*3/UL Baso # (Auto) 10*3/UL Neutrophils % (Manual) 41 L (50-80) % Band Neutrophils % 16 H (0-10) % Lymphocytes % (Manual) 35 (10-50) % Monocytes % (Manual) 6 (0-12) % Eosinophils % (Manual) 0 (0-8) % Basophils % (Manual) 0 (0-1) % Metamyelocytes % 2 % Myelocytes % Not Reportable Promyelocytes % Not Reportable Blast Cells Not Reportable WBC Morphology Comment Normal morphology (NORM) Plt Morphology Comment Normal morphology (NORM) RBC Morph Comment Normal morphology (NORM) ABG pH 7.35 (7.35-7.45) ABG pCO2 38 (34-38) MMHG ABG pO2 102 H (65-75) MMHG ABG HCO3 21 L (22-26) ABG Total CO2 22 L (23-27) MMOL/L ABG O2 Saturation 98 (90-100) % ABG Base Excess -5 L (-2-2) MMOL/L Yoandy Test N VBG pH (7.32-7.42) VBG pCO2 (45-55) mmHg VBG HCO3 (22-26) mmol/L VBG Base Excess (-2-2) MMOL/L FiO2 70% Sodium 143 (135-145) meq/L Potassium 4.5 (3.8-5.2) meq/L Chloride 110 (98-112) meq/L Carbon Dioxide 22 L (23-33) meq/L Anion Gap 11 (5-20) BUN 25 H (7-22) mg/dL Creatinine 0.9 (0.50-1.20) mg/dL Estimated GFR (>60 ml/min/1.73m(2)) BUN/Creatinine Ratio 27.77 H (6-20) Glucose 93 (78-110) mg/dL Calculated Osmolality 299.0 H (267-292) mOsm/kg Lactic Acid 1.3 (0.70-2.10) MMOL/L Calcium 7.9 L (8.7-10.7) mg/dL Total Bilirubin 1.1 (0.3-1.2) mg/dL AST 81 H (8-39) IU/L ALT 84 H (9-52) IU/L Alkaline Phosphatase 59 (38-126) IU/L Troponin I (< 0.040) ng/mL Total Protein 5.0 L (6.1-8.0) g/dL Albumin 2.7 L (3.5-4.8) g/dL Globulin 2.3 L (2.50-4.10) g/dL Albumin/Globulin Ratio 1.10 L (1.3-2.0) mg/g Amylase (30-110) U/L Lipase (23-300) IU/L Ur Collection Type Urine Color Urine Clarity (CLEAR) Urine pH (5.0-8.5) Ur Specific [place] (1.005-1.030) Urine Protein (NEG) mg/dl Urine Glucose (UA) (NEG) mg/dL Urine Ketones (NEG) Urine Occult Blood (NEG) Urine Nitrate (NEG) Urine Bilirubin (NEG) Urine Urobilinogen (0.2) EU/dL Ur Leukocyte Esterase (NEG) Urine RBC (NONE) /hpf Urine WBC (NONE) Ur Squamous Epith Cells (NONE) Ur Renal Epithelial Cell (NONE) Urine Crystals Urine Bacteria (NONE) Urine Casts (NONE) Urine Mucus (NONE) Urine Trichomonas (NONE) Urine Yeast (NONE) Ur Culture Indicated? Blood Type Antibody Screen Crossmatch 10/07/16 10/07/16 Range/Units 05:54 06:14 WBC 10.22 (4.8-10.8) 10^3/uL RBC 3.75 L (4.20-5.40) 10^6/uL Hgb 11.3 L (12.0-16.0) g/dL Hct 35.0 L (37.0-47.0) % MCV 93.3 (81-99) FL MCH 30.1 (27-31) PG MCHC 32.3 L (33-37) g/dL RDW Std Deviation 50.8 H (39-50) fL RDW Coeff of Sharri 15.5 H (11.5-14.5) % Plt Count 264 (140-350) 10*3/uL MPV 13.3 H (7.4-12.2) FL Immature Gran % (Auto) 0.3 (0-5) % Neut % (Auto) 75.6 (50-80) % Lymph % (Auto) 10.1 (10-50) % [place] % (Auto) 13.5 (5-15) % Eos % (Auto) 0.4 (0-8) % Baso % (Auto) 0.1 (0-1) % Immature Gran # (Auto) 0.03 10*3/UL Neut # (Auto) 7.73 10*3/UL Lymph # (Auto) 1.03 10*3/uL [place] # (Auto) 1.38 H (0.3-0.8) 10*3/UL Eos # (Auto) 0.04 10*3/UL Baso # (Auto) 0.01 10*3/UL Neutrophils % (Manual) (50-80) % Band Neutrophils % (0-10) % Lymphocytes % (Manual) (10-50) % Monocytes % (Manual) (0-12) % Eosinophils % (Manual) (0-8) % Basophils % (Manual) (0-1) % Metamyelocytes % % Myelocytes % Promyelocytes % Blast Cells WBC Morphology Comment Normal morphology (NORM) Plt Morphology Comment Normal morphology (NORM) RBC Morph Comment Normal morphology (NORM) ABG pH 7.38 (7.35-7.45) ABG pCO2 35 (34-38) MMHG ABG pO2 75 (65-75) MMHG ABG HCO3 21 L (22-26) ABG Total CO2 22 L (23-27) MMOL/L ABG O2 Saturation 95 (90-100) % ABG Base Excess -5 L (-2-2) MMOL/L Yoandy Test N VBG pH (7.32-7.42) VBG pCO2 (45-55) mmHg VBG HCO3 (22-26) mmol/L VBG Base Excess (-2-2) MMOL/L FiO2 60% vapo Sodium 139 (135-145) meq/L Potassium 4.3 (3.8-5.2) meq/L Chloride 109 (98-112) meq/L Carbon Dioxide 24 (23-33) meq/L Anion Gap 6 (5-20) BUN 22 (7-22) mg/dL Creatinine 0.9 (0.50-1.20) mg/dL Estimated GFR (>60 ml/min/1.73m(2)) BUN/Creatinine Ratio 24.44 H (6-20) Glucose 106 (78-110) mg/dL Calculated Osmolality 290.0 (267-292) mOsm/kg Lactic Acid (0.70-2.10) MMOL/L Calcium 8.0 L (8.7-10.7) mg/dL Total Bilirubin 1.4 H (0.3-1.2) mg/dL AST 53 H (8-39) IU/L ALT 69 H (9-52) IU/L Alkaline Phosphatase 61 (38-126) IU/L Troponin I (< 0.040) ng/mL Total Protein 5.1 L (6.1-8.0) g/dL Albumin 2.6 L (3.5-4.8) g/dL Globulin 2.5 (2.50-4.10) g/dL Albumin/Globulin Ratio 1.00 L (1.3-2.0) mg/g Amylase (30-110) U/L Lipase (23-300) IU/L Ur Collection Type Urine Color Urine Clarity (CLEAR) Urine pH (5.0-8.5) Ur Specific [place] (1.005-1.030) Urine Protein (NEG) mg/dl Urine Glucose (UA) (NEG) mg/dL Urine Ketones (NEG) Urine Occult Blood (NEG) Urine Nitrate (NEG) Urine Bilirubin (NEG) Urine Urobilinogen (0.2) EU/dL Ur Leukocyte Esterase (NEG) Urine RBC (NONE) /hpf Urine WBC (NONE) Ur Squamous Epith Cells (NONE) Ur Renal Epithelial Cell (NONE) Urine Crystals Urine Bacteria (NONE) Urine Casts (NONE) Urine Mucus (NONE) Urine Trichomonas (NONE) Urine Yeast (NONE) Ur Culture Indicated? Blood Type Antibody Screen Crossmatch Vital Signs (24 hrs) Temp Pulse Pulse Pulse Resp BP BP 10/07/16 09:00 98.0 F 99 14 117/45 10/07/16 08:00 98.0 F 92 20 135/51 10/07/16 07:00 98.3 F 96 98 17 124/48 10/07/16 06:49 10/07/16 06:30 98 100 17 10/07/16 05:51 98.6 F 93 19 128/49 10/07/16 05:05 10/07/16 05:00 98.6 F 91 16 115/45 10/07/16 04:00 98.3 F 93 18 100/42 10/07/16 03:10 03/08/17 03:00 98.8 F 96 98 97 19 111/46 10/07/16 02:00 100 19 105/44 10/07/16 01:00 98.8 F 104 H 13 111/54 10/07/16 00:00 99.3 F 107 H 18 117/46 10/06/16 23:03 99.6 F 10/06/16 23:00 106 H 10/06/16 22:53 106 H 106 H 19 10/06/16 22:00 100.3 F H 10/06/16 21:00 109 H 19 102/43 10/06/16 19:12 10/06/16 19:00 103 H 103 H 107 H 18 110/47 10/06/16 17:54 97.3 F 98 13 104/42 10/06/16 17:00 97.7 F 101 H 14 115/48 10/06/16 16:00 97.2 F 100 13 108/44 10/06/16 15:50 10/06/16 15:15 97.8 F 101 H 13 70/36 10/06/16 15:00 102 H 10/06/16 10:20 97.3 F 77 16 87/42 10/06/16 10:10 77 16 92/44 10/06/16 10:05 77 16 85/47 10/06/16 10:00 97.5 F 75 16 85/44 10/06/16 09:50 75 16 100/75 BP Pulse Ox 10/07/16 09:00 127/54 94 10/07/16 08:00 140/58 93 10/07/16 07:00 123/51 94 10/07/16 06:49 95 10/07/16 06:30 10/07/16 05:51 121/53 95 10/07/16 05:05 95 10/07/16 05:00 122/45 95 10/07/16 04:00 108/49 95 10/07/16 03:10 96 10/07/16 03:00 118/49 96 10/07/16 02:00 112/67 95 10/07/16 01:00 112/76 95 10/07/16 00:00 117/55 94 10/06/16 23:03 10/06/16 23:00 95 10/06/16 22:53 03/07/17 22:00 10/06/16 21:00 109/61 93 10/06/16 19:12 96 10/06/16 19:00 109/69 97 10/06/16 17:54 104/59 96 10/06/16 17:00 97/76 97 10/06/16 16:00 115/58 93 10/06/16 15:50 93 10/06/16 15:15 98/55 96 10/06/16 15:00 10/06/16 10:20 10/06/16 10:10 10/06/16 10:05 10/06/16 10:00 10/06/16 09:50
[2016-10-07] MEDS ORDERED: DILTIAZEM DRIP IV SCH (09:45)
[2016-10-07] MEDS ORDERED: SODIUM CHLORIDE 0.9% IV SCH ×2 (09:45→12:30)
[2016-10-07] MEDS ORDERED: Sodium Chloride 0.9% 100 ML IV ONE (09:47)
[2016-10-07] MEDS: Diltiazem Drip 125 MG in Sodium Chloride 0.9% 100 ML IV SCH ×2 (09:52→12:32)
[2016-10-07] MEDS ORDERED: Sodium Chloride 0.9% 500 ML ONE (10:00)
[2016-10-07] MEDS ORDERED: Sodium Chloride 0.9% 500 ML PRIMARY IV SCH (10:15)
[2016-10-07] MEDS ORDERED: PHENYLEPHRINE IV SCH (12:30)
[2016-10-07] MEDS ORDERED: ASPIRIN 81 MG (BABY) CHEWABLE TABLET ONE (12:51)
[2016-10-07] MEDS ORDERED: ASPIRIN EC 81 MG TABLET PO SCH (13:00)
[2016-10-07 13:21] VITALS: TEMP 97.8
--- NOTE | 2016-10-07 14:26 | DCSUMMARY ---
Hospitalization Summary Hospital Course: Final Discharge Diagnosis: Current Visit Problems Problem Status Priority Diagnosed Code DVT prophylaxis Acute [id number] History of coronary artery disease Acute Z86.79 Hypertension Acute I10 Ischemic colitis Acute K55.9 Mesenteric ischemia Acute K55.9 Possible urinary tract infection Acute N39.0 UTI (urinary tract infection) Acute N39.0 Diagnostic Data, Laboratory Data, and Procedures of Signifigance: Laboratory Results 10/05/16 10/05/16 10/05/16 Range/Units 14:20 16:03 16:27 WBC 10.43 (4.8-10.8) 10^3/uL RBC 4.85 (4.20-5.40) 10^6/uL Hgb 14.4 (12.0-16.0) g/dL Hct 43.6 (37.0-47.0) % MCV 89.9 (81-99) FL MCH 29.7 (27-31) PG MCHC 33.0 (33-37) g/dL RDW Std Deviation 48.1 (39-50) fL RDW Coeff of Sharri 14.7 H (11.5-14.5) % Plt Count 372 H (140-350) 10*3/uL MPV 12.7 H (7.4-12.2) FL Immature Gran % (Auto) 0.2 (0-5) % Neut % (Auto) 43.0 L (50-80) % Lymph % (Auto) 47.2 (10-50) % Howell % (Auto) 8.3 (5-15) % Eos % (Auto) 0.8 (0-8) % Baso % (Auto) 0.5 (0-1) % Immature Gran # (Auto) 0.02 10*3/UL Neut # (Auto) 4.49 10*3/UL Lymph # (Auto) 4.92 10*3/uL Howell # (Auto) 0.87 H (0.3-0.8) 10*3/UL Eos # (Auto) 0.08 10*3/UL Baso # (Auto) 0.05 10*3/UL Neutrophils % (Manual) (50-80) % Band Neutrophils % (0-10) % Lymphocytes % (Manual) (10-50) % Monocytes % (Manual) (0-12) % Eosinophils % (Manual) (0-8) % Basophils % (Manual) (0-1) % Metamyelocytes % % Myelocytes % Promyelocytes % Blast Cells WBC Morphology Comment Normal morphology (NORM) Plt Morphology Comment Normal morphology (NORM) RBC Morph Comment Normal morphology (NORM) ABG pH (7.35-7.45) ABG pCO2 (34-38) MMHG ABG pO2 (65-75) MMHG ABG HCO3 (22-26) ABG Total CO2 (23-27) MMOL/L ABG O2 Saturation (90-100) % ABG Base Excess (-2-2) MMOL/L Yoandy Test VBG pH (7.32-7.42) VBG pCO2 (45-55) mmHg VBG HCO3 (22-26) mmol/L VBG Base Excess (-2-2) MMOL/L FiO2 Sodium 140 (135-145) meq/L Potassium 3.8 (3.8-5.2) meq/L Chloride 102 (98-112) meq/L Carbon Dioxide 22 L (23-33) meq/L Anion Gap 16 (5-20) BUN 19 (7-22) mg/dL Creatinine 1.0 (0.50-1.20) mg/dL Estimated GFR (>60 ml/min/1.73m(2)) BUN/Creatinine Ratio 19.00 (6-20) Glucose 124 H (78-110) mg/dL Calculated Osmolality 292.0 (267-292) mOsm/kg Lactic Acid 2.9 H (0.70-2.10) MMOL/L Calcium 9.5 (8.7-10.7) mg/dL Magnesium (1.6-2.4) mg/dL Total Bilirubin 0.7 (0.3-1.2) mg/dL AST 64 H (8-39) IU/L ALT 18 (9-52) IU/L Alkaline Phosphatase 99 (38-126) IU/L Troponin I < 0.012 (< 0.040) ng/mL Total Protein 7.5 (6.1-8.0) g/dL Albumin 4.2 (3.5-4.8) g/dL Globulin 3.3 (2.50-4.10) g/dL Albumin/Globulin Ratio 1.20 L (1.3-2.0) mg/g Amylase 58 (30-110) U/L Lipase 68 (23-300) IU/L Ur Collection Type Urine Color Urine Clarity (CLEAR) Urine pH (5.0-8.5) Ur Specific [place] (1.005-1.030) Urine Protein (NEG) mg/dl Urine Glucose (UA) (NEG) mg/dL Urine Ketones (NEG) Urine Occult Blood (NEG) Urine Nitrate (NEG) Urine Bilirubin (NEG) Urine Urobilinogen (0.2) EU/dL Ur Leukocyte Esterase (NEG) Urine RBC (NONE) /hpf Urine WBC (NONE) Ur Squamous Epith Cells (NONE) Ur Renal Epithelial Cell (NONE) Urine Crystals Urine Bacteria (NONE) Urine Casts (NONE) Urine Mucus (NONE) Urine Trichomonas (NONE) Urine Yeast (NONE) Ur Culture Indicated? Blood Type Antibody Screen Crossmatch 10/05/16 10/05/16 10/05/16 Range/Units 17:27 17:43 22:03 WBC (4.8-10.8) 10^3/uL RBC (4.20-5.40) 10^6/uL Hgb (12.0-16.0) g/dL Hct (37.0-47.0) % MCV (81-99) FL MCH (27-31) PG MCHC (33-37) g/dL RDW Std Deviation (39-50) fL RDW Coeff of Sharri (11.5-14.5) % Plt Count (140-350) 10*3/uL MPV (7.4-12.2) FL Immature Gran % (Auto) (0-5) % Neut % (Auto) (50-80) % Lymph % (Auto) (10-50) % Howell % (Auto) (5-15) % Eos % (Auto) (0-8) % Baso % (Auto) (0-1) % Immature Gran # (Auto) 10*3/UL Neut # (Auto) 10*3/UL Lymph # (Auto) 10*3/uL Howell # (Auto) (0.3-0.8) 10*3/UL Eos # (Auto) 10*3/UL Baso # (Auto) 10*3/UL Neutrophils % (Manual) (50-80) % Band Neutrophils % (0-10) % Lymphocytes % (Manual) (10-50) % Monocytes % (Manual) (0-12) % Eosinophils % (Manual) (0-8) % Basophils % (Manual) (0-1) % Metamyelocytes % % Myelocytes % Promyelocytes % Blast Cells WBC Morphology Comment (NORM) Plt Morphology Comment (NORM) RBC Morph Comment (NORM) ABG pH (7.35-7.45) ABG pCO2 (34-38) MMHG ABG pO2 (65-75) MMHG ABG HCO3 (22-26) ABG Total CO2 (23-27) MMOL/L ABG O2 Saturation (90-100) % ABG Base Excess (-2-2) MMOL/L Yoandy Test VBG pH 7.39 (7.32-7.42) VBG pCO2 35 L (45-55) mmHg VBG HCO3 21 L (22-26) mmol/L VBG Base Excess -4 L (-2-2) MMOL/L FiO2 Sodium (135-145) meq/L Potassium (3.8-5.2) meq/L Chloride (98-112) meq/L Carbon Dioxide (23-33) meq/L Anion Gap (5-20) BUN (7-22) mg/dL Creatinine (0.50-1.20) mg/dL Estimated GFR (>60 ml/min/1.73m(2)) BUN/Creatinine Ratio (6-20) Glucose (78-110) mg/dL Calculated Osmolality (267-292) mOsm/kg Lactic Acid 2.8 H (0.70-2.10) MMOL/L Calcium (8.7-10.7) mg/dL Magnesium (1.6-2.4) mg/dL Total Bilirubin (0.3-1.2) mg/dL AST (8-39) IU/L ALT (9-52) IU/L Alkaline Phosphatase (38-126) IU/L Troponin I (< 0.040) ng/mL Total Protein (6.1-8.0) g/dL Albumin (3.5-4.8) g/dL Globulin (2.50-4.10) g/dL Albumin/Globulin Ratio (1.3-2.0) mg/g Amylase (30-110) U/L Lipase (23-300) IU/L Ur Collection Type Clean catch urine Urine Color Yellow Urine Clarity Slightly christelle (CLEAR) Urine pH 8.5 (5.0-8.5) Ur Specific [place] 1.010 (1.005-1.030) Urine Protein 100 (NEG) mg/dl Urine Glucose (UA) Negative (NEG) mg/dL Urine Ketones Trace (NEG) Urine Occult Blood Trace-intact H (NEG) Urine Nitrate Positive H (NEG) Urine Bilirubin Small (NEG) Urine Urobilinogen 2.0 (0.2) EU/dL Ur Leukocyte Esterase Small (NEG) Urine RBC 0-1 (NONE) /hpf Urine WBC 9-14 (NONE) Ur Squamous Epith Cells Moderate (NONE) Ur Renal Epithelial Cell None (NONE) Urine Crystals None Urine Bacteria Few (NONE) Urine Casts None (NONE) Urine Mucus None (NONE) Urine Trichomonas None (NONE) Urine Yeast None (NONE) Ur Culture Indicated? Culture set Blood Type Antibody Screen Crossmatch 10/06/16 10/06/16 10/06/16 Range/Units 05:05 05:08 08:54 WBC 13.05 H (4.8-10.8) 10^3/uL RBC 4.62 (4.20-5.40) 10^6/uL Hgb 13.4 (12.0-16.0) g/dL Hct 42.4 (37.0-47.0) % MCV 91.8 (81-99) FL MCH 29.0 (27-31) PG MCHC 31.6 L (33-37) g/dL RDW Std Deviation 49.0 (39-50) fL RDW Coeff of Sharri 15.0 H (11.5-14.5) % Plt Count 349 (140-350) 10*3/uL MPV 12.6 H (7.4-12.2) FL Immature Gran % (Auto) 0.2 (0-5) % Neut % (Auto) 81.5 H (50-80) % Lymph % (Auto) 5.6 L (10-50) % Howell % (Auto) 12.5 (5-15) % Eos % (Auto) 0.1 (0-8) % Baso % (Auto) 0.1 (0-1) % Immature Gran # (Auto) 0.03 10*3/UL Neut # (Auto) 10.64 10*3/UL Lymph # (Auto) 0.73 10*3/uL [place] # (Auto) 1.63 H (0.3-0.8) 10*3/UL Eos # (Auto) 0.01 10*3/UL Baso # (Auto) 0.01 10*3/UL Neutrophils % (Manual) (50-80) % Band Neutrophils % (0-10) % Lymphocytes % (Manual) (10-50) % Monocytes % (Manual) (0-12) % Eosinophils % (Manual) (0-8) % Basophils % (Manual) (0-1) % Metamyelocytes % % Myelocytes % Promyelocytes % Blast Cells WBC Morphology Comment Normal morphology (NORM) Plt Morphology Comment Normal morphology (NORM) RBC Morph Comment Normal morphology (NORM) ABG pH (7.35-7.45) ABG pCO2 (34-38) MMHG ABG pO2 (65-75) MMHG ABG HCO3 (22-26) ABG Total CO2 (23-27) MMOL/L ABG O2 Saturation (90-100) % ABG Base Excess (-2-2) MMOL/L Yoandy Test VBG pH (7.32-7.42) VBG pCO2 (45-55) mmHg VBG HCO3 (22-26) mmol/L VBG Base Excess (-2-2) MMOL/L FiO2 Sodium 142 (135-145) meq/L Potassium 4.9 D (3.8-5.2) meq/L Chloride 110 (98-112) meq/L Carbon Dioxide 19 L (23-33) meq/L Anion Gap 13 (5-20) BUN 27 H (7-22) mg/dL Creatinine 1.1 (0.50-1.20) mg/dL Estimated GFR (>60 ml/min/1.73m(2)) BUN/Creatinine Ratio 24.54 H (6-20) Glucose 134 H (78-110) mg/dL Calculated Osmolality 300.0 H (267-292) mOsm/kg Lactic Acid 2.9 H (0.70-2.10) MMOL/L Calcium 8.0 L (8.7-10.7) mg/dL Magnesium (1.6-2.4) mg/dL Total Bilirubin 1.0 (0.3-1.2) mg/dL AST 156 H (8-39) IU/L ALT 90 H D (9-52) IU/L Alkaline Phosphatase 82 (38-126) IU/L Troponin I < 0.012 (< 0.040) ng/mL Total Protein 5.7 L (6.1-8.0) g/dL Albumin 2.8 L (3.5-4.8) g/dL Globulin 2.9 (2.50-4.10) g/dL Albumin/Globulin Ratio 0.90 L (1.3-2.0) mg/g Amylase (30-110) U/L Lipase (23-300) IU/L Ur Collection Type Urine Color Urine Clarity (CLEAR) Urine pH (5.0-8.5) Ur Specific [place] (1.005-1.030) Urine Protein (NEG) mg/dl Urine Glucose (UA) (NEG) mg/dL Urine Ketones (NEG) Urine Occult Blood (NEG) Urine Nitrate (NEG) Urine Bilirubin (NEG) Urine Urobilinogen (0.2) EU/dL Ur Leukocyte Esterase (NEG) Urine RBC (NONE) /hpf Urine WBC (NONE) Ur Squamous Epith Cells (NONE) Ur Renal Epithelial Cell (NONE) Urine Crystals Urine Bacteria (NONE) Urine Casts (NONE) Urine Mucus (NONE) Urine Trichomonas (NONE) Urine Yeast (NONE) Ur Culture Indicated? Blood Type A POSITIVE Antibody Screen Negative Crossmatch See Detail 10/06/16 10/06/16 10/06/16 Range/Units 11:01 13:11 14:26 WBC (4.8-10.8) 10^3/uL RBC (4.20-5.40) 10^6/uL Hgb (12.0-16.0) g/dL Hct (37.0-47.0) % MCV (81-99) FL MCH (27-31) PG MCHC (33-37) g/dL RDW Std Deviation (39-50) fL RDW Coeff of Sharri (11.5-14.5) % Plt Count (140-350) 10*3/uL MPV (7.4-12.2) FL Immature Gran % (Auto) (0-5) % Neut % (Auto) (50-80) % Lymph % (Auto) (10-50) % [place] % (Auto) (5-15) % Eos % (Auto) (0-8) % Baso % (Auto) (0-1) % Immature Gran # (Auto) 10*3/UL Neut # (Auto) 10*3/UL Lymph # (Auto) 10*3/uL [place] # (Auto) (0.3-0.8) 10*3/UL Eos # (Auto) 10*3/UL Baso # (Auto) 10*3/UL Neutrophils % (Manual) (50-80) % Band Neutrophils % (0-10) % Lymphocytes % (Manual) (10-50) % Monocytes % (Manual) (0-12) % Eosinophils % (Manual) (0-8) % Basophils % (Manual) (0-1) % Metamyelocytes % % Myelocytes % Promyelocytes % Blast Cells WBC Morphology Comment (NORM) Plt Morphology Comment (NORM) RBC Morph Comment (NORM) ABG pH 7.32 L 7.20 L 7.09 L (7.35-7.45) ABG pCO2 35 44 H 73 H (34-38) MMHG ABG pO2 163 H 61 L 86 H (65-75) MMHG ABG HCO3 18 L 17 L 22 (22-26) ABG Total CO2 19 L 19 L 24 (23-27) MMOL/L ABG O2 Saturation 99 85 L 91 (90-100) % ABG Base Excess -8 L -11 L -8 L (-2-2) MMOL/L Yoandy Test N N N VBG pH (7.32-7.42) VBG pCO2 (45-55) mmHg VBG HCO3 (22-26) mmol/L VBG Base Excess (-2-2) MMOL/L FiO2 100% vent 60% 6lpm Sodium (135-145) meq/L Potassium (3.8-5.2) meq/L Chloride (98-112) meq/L Carbon Dioxide (23-33) meq/L Anion Gap (5-20) BUN (7-22) mg/dL Creatinine (0.50-1.20) mg/dL Estimated GFR (>60 ml/min/1.73m(2)) BUN/Creatinine Ratio (6-20) Glucose (78-110) mg/dL Calculated Osmolality (267-292) mOsm/kg Lactic Acid (0.70-2.10) MMOL/L Calcium (8.7-10.7) mg/dL Magnesium (1.6-2.4) mg/dL Total Bilirubin (0.3-1.2) mg/dL AST (8-39) IU/L ALT (9-52) IU/L Alkaline Phosphatase (38-126) IU/L Troponin I (< 0.040) ng/mL Total Protein (6.1-8.0) g/dL Albumin (3.5-4.8) g/dL Globulin (2.50-4.10) g/dL Albumin/Globulin Ratio (1.3-2.0) mg/g Amylase (30-110) U/L Lipase (23-300) IU/L Ur Collection Type Urine Color Urine Clarity (CLEAR) Urine pH (5.0-8.5) Ur Specific [place] (1.005-1.030) Urine Protein (NEG) mg/dl Urine Glucose (UA) (NEG) mg/dL Urine Ketones (NEG) Urine Occult Blood (NEG) Urine Nitrate (NEG) Urine Bilirubin (NEG) Urine Urobilinogen (0.2) EU/dL Ur Leukocyte Esterase (NEG) Urine RBC (NONE) /hpf Urine WBC (NONE) Ur Squamous Epith Cells (NONE) Ur Renal Epithelial Cell (NONE) Urine Crystals Urine Bacteria (NONE) Urine Casts (NONE) Urine Mucus (NONE) Urine Trichomonas (NONE) Urine Yeast (NONE) Ur Culture Indicated? Blood Type Antibody Screen Crossmatch 10/06/16 10/06/16 10/06/16 Range/Units 15:42 16:38 18:17 WBC (4.8-10.8) 10^3/uL RBC (4.20-5.40) 10^6/uL Hgb (12.0-16.0) g/dL Hct (37.0-47.0) % MCV (81-99) FL MCH (27-31) PG MCHC (33-37) g/dL RDW Std Deviation (39-50) fL RDW Coeff of Sharri (11.5-14.5) % Plt Count (140-350) 10*3/uL MPV (7.4-12.2) FL Immature Gran % (Auto) (0-5) % Neut % (Auto) (50-80) % Lymph % (Auto) (10-50) % [place] % (Auto) (5-15) % Eos % (Auto) (0-8) % Baso % (Auto) (0-1) % Immature Gran # (Auto) 10*3/UL Neut # (Auto) 10*3/UL Lymph # (Auto) 10*3/uL [place] # (Auto) (0.3-0.8) 10*3/UL Eos # (Auto) 10*3/UL Baso # (Auto) 10*3/UL Neutrophils % (Manual) (50-80) % Band Neutrophils % (0-10) % Lymphocytes % (Manual) (10-50) % Monocytes % (Manual) (0-12) % Eosinophils % (Manual) (0-8) % Basophils % (Manual) (0-1) % Metamyelocytes % % Myelocytes % Promyelocytes % Blast Cells WBC Morphology Comment (NORM) Plt Morphology Comment (NORM) RBC Morph Comment (NORM) ABG pH 7.12 L 7.26 L 7.29 L (7.35-7.45) ABG pCO2 69 H 52 H 43 H (34-38) MMHG ABG pO2 81 H 79 H 94 H (65-75) MMHG ABG HCO3 23 23 21 L (22-26) ABG Total CO2 25 25 22 L (23-27) MMOL/L ABG O2 Saturation 91 93 96 (90-100) % ABG Base Excess -7 L -4 L -6 L (-2-2) MMOL/L Yoandy Test N N N VBG pH (7.32-7.42) VBG pCO2 (45-55) mmHg VBG HCO3 (22-26) mmol/L VBG Base Excess (-2-2) MMOL/L FiO2 6l sm 93 70% Sodium (135-145) meq/L Potassium (3.8-5.2) meq/L Chloride (98-112) meq/L Carbon Dioxide (23-33) meq/L Anion Gap (5-20) BUN (7-22) mg/dL Creatinine (0.50-1.20) mg/dL Estimated GFR (>60 ml/min/1.73m(2)) BUN/Creatinine Ratio (6-20) Glucose (78-110) mg/dL Calculated Osmolality (267-292) mOsm/kg Lactic Acid (0.70-2.10) MMOL/L Calcium (8.7-10.7) mg/dL Magnesium (1.6-2.4) mg/dL Total Bilirubin (0.3-1.2) mg/dL AST (8-39) IU/L ALT (9-52) IU/L Alkaline Phosphatase (38-126) IU/L Troponin I (< 0.040) ng/mL Total Protein (6.1-8.0) g/dL Albumin (3.5-4.8) g/dL Globulin (2.50-4.10) g/dL Albumin/Globulin Ratio (1.3-2.0) mg/g Amylase (30-110) U/L Lipase (23-300) IU/L Ur Collection Type Urine Color Urine Clarity (CLEAR) Urine pH (5.0-8.5) Ur Specific [place] (1.005-1.030) Urine Protein (NEG) mg/dl Urine Glucose (UA) (NEG) mg/dL Urine Ketones (NEG) Urine Occult Blood (NEG) Urine Nitrate (NEG) Urine Bilirubin (NEG) Urine Urobilinogen (0.2) EU/dL Ur Leukocyte Esterase (NEG) Urine RBC (NONE) /hpf Urine WBC (NONE) Ur Squamous Epith Cells (NONE) Ur Renal Epithelial Cell (NONE) Urine Crystals Urine Bacteria (NONE) Urine Casts (NONE) Urine Mucus (NONE) Urine Trichomonas (NONE) Urine Yeast (NONE) Ur Culture Indicated? Blood Type Antibody Screen Crossmatch 10/06/16 10/06/16 10/06/16 Range/Units 20:12 22:51 23:15 WBC 5.90 (4.8-10.8) 10^3/uL RBC 3.78 L (4.20-5.40) 10^6/uL Hgb 11.3 L (12.0-16.0) g/dL Hct 35.4 L (37.0-47.0) % MCV 93.7 (81-99) FL MCH 29.9 (27-31) PG MCHC 31.9 L (33-37) g/dL RDW Std Deviation 49.9 (39-50) fL RDW Coeff of Sharri 15.3 H (11.5-14.5) % Plt Count 278 (140-350) 10*3/uL MPV 12.5 H (7.4-12.2) FL Immature Gran % (Auto) (0-5) % Neut % (Auto) (50-80) % Lymph % (Auto) (10-50) % [place] % (Auto) (5-15) % Eos % (Auto) (0-8) % Baso % (Auto) (0-1) % Immature Gran # (Auto) 10*3/UL Neut # (Auto) 10*3/UL Lymph # (Auto) 10*3/uL [place] # (Auto) (0.3-0.8) 10*3/UL Eos # (Auto) 10*3/UL Baso # (Auto) 10*3/UL Neutrophils % (Manual) 41 L (50-80) % Band Neutrophils % 16 H (0-10) % Lymphocytes % (Manual) 35 (10-50) % Monocytes % (Manual) 6 (0-12) % Eosinophils % (Manual) 0 (0-8) % Basophils % (Manual) 0 (0-1) % Metamyelocytes % 2 % Myelocytes % Not Reportable Promyelocytes % Not Reportable Blast Cells Not Reportable WBC Morphology Comment Normal morphology (NORM) Plt Morphology Comment Normal morphology (NORM) RBC Morph Comment Normal morphology (NORM) ABG pH 7.35 (7.35-7.45) ABG pCO2 38 (34-38) MMHG ABG pO2 102 H (65-75) MMHG ABG HCO3 21 L (22-26) ABG Total CO2 22 L (23-27) MMOL/L ABG O2 Saturation 98 (90-100) % ABG Base Excess -5 L (-2-2) MMOL/L Yoandy Test N VBG pH (7.32-7.42) VBG pCO2 (45-55) mmHg VBG HCO3 (22-26) mmol/L VBG Base Excess (-2-2) MMOL/L FiO2 70% Sodium 143 (135-145) meq/L Potassium 4.5 (3.8-5.2) meq/L Chloride 110 (98-112) meq/L Carbon Dioxide 22 L (23-33) meq/L Anion Gap 11 (5-20) BUN 25 H (7-22) mg/dL Creatinine 0.9 (0.50-1.20) mg/dL Estimated GFR (>60 ml/min/1.73m(2)) BUN/Creatinine Ratio 27.77 H (6-20) Glucose 93 (78-110) mg/dL Calculated Osmolality 299.0 H (267-292) mOsm/kg Lactic Acid 1.3 (0.70-2.10) MMOL/L Calcium 7.9 L (8.7-10.7) mg/dL Magnesium (1.6-2.4) mg/dL Total Bilirubin 1.1 (0.3-1.2) mg/dL AST 81 H (8-39) IU/L ALT 84 H (9-52) IU/L Alkaline Phosphatase 59 (38-126) IU/L Troponin I (< 0.040) ng/mL Total Protein 5.0 L (6.1-8.0) g/dL Albumin 2.7 L (3.5-4.8) g/dL Globulin 2.3 L (2.50-4.10) g/dL Albumin/Globulin Ratio 1.10 L (1.3-2.0) mg/g Amylase (30-110) U/L Lipase (23-300) IU/L Ur Collection Type Urine Color Urine Clarity (CLEAR) Urine pH (5.0-8.5) Ur Specific [place] (1.005-1.030) Urine Protein (NEG) mg/dl Urine Glucose (UA) (NEG) mg/dL Urine Ketones (NEG) Urine Occult Blood (NEG) Urine Nitrate (NEG) Urine Bilirubin (NEG) Urine Urobilinogen (0.2) EU/dL Ur Leukocyte Esterase (NEG) Urine RBC (NONE) /hpf Urine WBC (NONE) Ur Squamous Epith Cells (NONE) Ur Renal Epithelial Cell (NONE) Urine Crystals Urine Bacteria (NONE) Urine Casts (NONE) Urine Mucus (NONE) Urine Trichomonas (NONE) Urine Yeast (NONE) Ur Culture Indicated? Blood Type Antibody Screen Crossmatch 10/07/16 10/07/16 10/07/16 Range/Units 05:54 06:14 09:48 WBC 10.22 (4.8-10.8) 10^3/uL RBC 3.75 L (4.20-5.40) 10^6/uL Hgb 11.3 L (12.0-16.0) g/dL Hct 35.0 L (37.0-47.0) % MCV 93.3 (81-99) FL MCH 30.1 (27-31) PG MCHC 32.3 L (33-37) g/dL RDW Std Deviation 50.8 H (39-50) fL RDW Coeff of Sharri 15.5 H (11.5-14.5) % Plt Count 264 (140-350) 10*3/uL MPV 13.3 H (7.4-12.2) FL Immature Gran % (Auto) 0.3 (0-5) % Neut % (Auto) 75.6 (50-80) % Lymph % (Auto) 10.1 (10-50) % [place]ell % (Auto) 13.5 (5-15) % Eos % (Auto) 0.4 (0-8) % Baso % (Auto) 0.1 (0-1) % Immature Gran # (Auto) 0.03 10*3/UL Neut # (Auto) 7.73 10*3/UL Lymph # (Auto) 1.03 10*3/uL [place]ell # (Auto) 1.38 H (0.3-0.8) 10*3/UL Eos # (Auto) 0.04 10*3/UL Baso # (Auto) 0.01 10*3/UL Neutrophils % (Manual) (50-80) % Band Neutrophils % (0-10) % Lymphocytes % (Manual) (10-50) % Monocytes % (Manual) (0-12) % Eosinophils % (Manual) (0-8) % Basophils % (Manual) (0-1) % Metamyelocytes % % Myelocytes % Promyelocytes % Blast Cells WBC Morphology Comment Normal morphology (NORM) Plt Morphology Comment Normal morphology (NORM) RBC Morph Comment Normal morphology (NORM) ABG pH 7.38 (7.35-7.45) ABG pCO2 35 (34-38) MMHG ABG pO2 75 (65-75) MMHG ABG HCO3 21 L (22-26) ABG Total CO2 22 L (23-27) MMOL/L ABG O2 Saturation 95 (90-100) % ABG Base Excess -5 L (-2-2) MMOL/L Yoandy Test N VBG pH (7.32-7.42) VBG pCO2 (45-55) mmHg VBG HCO3 (22-26) mmol/L VBG Base Excess (-2-2) MMOL/L FiO2 60% vapo Sodium 139 (135-145) meq/L Potassium 4.3 (3.8-5.2) meq/L Chloride 109 (98-112) meq/L Carbon Dioxide 24 (23-33) meq/L Anion Gap 6 (5-20) BUN 22 (7-22) mg/dL Creatinine 0.9 (0.50-1.20) mg/dL Estimated GFR (>60 ml/min/1.73m(2)) BUN/Creatinine Ratio 24.44 H (6-20) Glucose 106 (78-110) mg/dL Calculated Osmolality 290.0 (267-292) mOsm/kg Lactic Acid (0.70-2.10) MMOL/L Calcium 8.0 L (8.7-10.7) mg/dL Magnesium 2.0 (1.6-2.4) mg/dL Total Bilirubin 1.4 H (0.3-1.2) mg/dL AST 53 H (8-39) IU/L ALT 69 H (9-52) IU/L Alkaline Phosphatase 61 (38-126) IU/L Troponin I 0.431 H* (< 0.040) ng/mL Total Protein 5.1 L (6.1-8.0) g/dL Albumin 2.6 L (3.5-4.8) g/dL Globulin 2.5 (2.50-4.10) g/dL Albumin/Globulin Ratio 1.00 L (1.3-2.0) mg/g Amylase (30-110) U/L Lipase (23-300) IU/L Ur Collection Type Urine Color Urine Clarity (CLEAR) Urine pH (5.0-8.5) Ur Specific [place] (1.005-1.030) Urine Protein (NEG) mg/dl Urine Glucose (UA) (NEG) mg/dL Urine Ketones (NEG) Urine Occult Blood (NEG) Urine Nitrate (NEG) Urine Bilirubin (NEG) Urine Urobilinogen (0.2) EU/dL Ur Leukocyte Esterase (NEG) Urine RBC (NONE) /hpf Urine WBC (NONE) Ur Squamous Epith Cells (NONE) Ur Renal Epithelial Cell (NONE) Urine Crystals Urine Bacteria (NONE) Urine Casts (NONE) Urine Mucus (NONE) Urine Trichomonas (NONE) Urine Yeast (NONE) Ur Culture Indicated? Blood Type Antibody Screen Crossmatch 10/07/16 Range/Units 13:35 WBC (4.8-10.8) 10^3/uL RBC (4.20-5.40) 10^6/uL Hgb (12.0-16.0) g/dL Hct (37.0-47.0) % MCV (81-99) FL MCH (27-31) PG MCHC (33-37) g/dL RDW Std Deviation (39-50) fL RDW Coeff of Sharri (11.5-14.5) % Plt Count (140-350) 10*3/uL MPV (7.4-12.2) FL Immature Gran % (Auto) (0-5) % Neut % (Auto) (50-80) % Lymph % (Auto) (10-50) % [place]ell % (Auto) (5-15) % Eos % (Auto) (0-8) % Baso % (Auto) (0-1) % Immature Gran # (Auto) 10*3/UL Neut # (Auto) 10*3/UL Lymph # (Auto) 10*3/uL [place]ell # (Auto) (0.3-0.8) 10*3/UL Eos # (Auto) 10*3/UL Baso # (Auto) 10*3/UL Neutrophils % (Manual) (50-80) % Band Neutrophils % (0-10) % Lymphocytes % (Manual) (10-50) % Monocytes % (Manual) (0-12) % Eosinophils % (Manual) (0-8) % Basophils % (Manual) (0-1) % Metamyelocytes % % Myelocytes % Promyelocytes % Blast Cells WBC Morphology Comment (NORM) Plt Morphology Comment (NORM) RBC Morph Comment (NORM) ABG pH (7.35-7.45) ABG pCO2 (34-38) MMHG ABG pO2 (65-75) MMHG ABG HCO3 (22-26) ABG Total CO2 (23-27) MMOL/L ABG O2 Saturation (90-100) % ABG Base Excess (-2-2) MMOL/L Yoandy Test VBG pH (7.32-7.42) VBG pCO2 (45-55) mmHg VBG HCO3 (22-26) mmol/L VBG Base Excess (-2-2) MMOL/L FiO2 Sodium (135-145) meq/L Potassium (3.8-5.2) meq/L Chloride (98-112) meq/L Carbon Dioxide (23-33) meq/L Anion Gap (5-20) BUN (7-22) mg/dL Creatinine (0.50-1.20) mg/dL Estimated GFR (>60 ml/min/1.73m(2)) BUN/Creatinine Ratio (6-20) Glucose (78-110) mg/dL Calculated Osmolality (267-292) mOsm/kg Lactic Acid (0.70-2.10) MMOL/L Calcium (8.7-10.7) mg/dL Magnesium (1.6-2.4) mg/dL Total Bilirubin (0.3-1.2) mg/dL AST (8-39) IU/L ALT (9-52) IU/L Alkaline Phosphatase (38-126) IU/L Troponin I 0.307 H* (< 0.040) ng/mL Total Protein (6.1-8.0) g/dL Albumin (3.5-4.8) g/dL Globulin (2.50-4.10) g/dL Albumin/Globulin Ratio (1.3-2.0) mg/g Amylase (30-110) U/L Lipase (23-300) IU/L Ur Collection Type Urine Color Urine Clarity (CLEAR) Urine pH (5.0-8.5) Ur Specific [place] (1.005-1.030) Urine Protein (NEG) mg/dl Urine Glucose (UA) (NEG) mg/dL Urine Ketones (NEG) Urine Occult Blood (NEG) Urine Nitrate (NEG) Urine Bilirubin (NEG) Urine Urobilinogen (0.2) EU/dL Ur Leukocyte Esterase (NEG) Urine RBC (NONE) /hpf Urine WBC (NONE) Ur Squamous Epith Cells (NONE) Ur Renal Epithelial Cell (NONE) Urine Crystals Urine Bacteria (NONE) Urine Casts (NONE) Urine Mucus (NONE) Urine Trichomonas (NONE) Urine Yeast (NONE) Ur Culture Indicated? Blood Type Antibody Screen Crossmatch Microbiology 10/05/16 17:43 Urine,Clean Catch Urine Culture - Final 10/05/16 16:27 Blood Blood Culture - Preliminary NO GROWTH AFTER 24 HOURS 10/05/16 16:27 Blood Blood Culture - Preliminary NO GROWTH AFTER 24 HOURS 10/06/16 02:53 Stool Clostridium difficile (PCR) - Final History and Physical pertinent to Admission: Past Medical History Medical History: 1. Coronary artery disease with non-ST [place] in July 2016. 2. Hypertension. 3. Hypothyroidism. 4. Chronic hypoxemia supposed to be on oxygen but however she doesn't wear it all the time. She supposed to be on 2 L a day Surgical History: History of appendectomy Family History: Reviewed an Not Pertinent Past Social History: Doesn't smoke, rarely drinks no drugs. She moved her from [place] with her in 2014 Tobacco Use: Never Smoker Substance Use Type: None Alcohol Use: Rarely Course of Hospitalization: This very nice 76-year-old female with past medical history of hypertension, hypothyroidism, and non-ST [place] in July 2016. Comes into the hospital with a history of abdominal pain for the last 3 days prior to admission in the ER of the CT scan was performed patient was diagnosed with the ischemic colitis. Subsequently patient became hypoxic pensive and septic general surgery was consult did and the emergent: Surgery was performed with the left hemicolectomy with removal of the distal and sigmoid colon 300 mL of pus were taken out of the abdomen. Patient is a high risk for perioperative [place] she required pressors and the nature believe the fed and the fluid for her pressure maintenance this morning she developed A. fib RVR with a rate of 160 an hour. She was started on Cardizem drip at 15 also the Levophed was switched to Ismael-Synephrine with stabilization of her heart rate in the 120 range and blood pressures maintaining 112/46 with NAP of 65-70. Also she developed elevated troponins at 0.453 most likely could be non-STEMI because of all the above patient will be transferred to [facility] under the care of Dr. Millard pulmonary critical care and possible cardiology consultation. Patient has an arterial line, and central line On the date of discharge, the patient was examined: Gen.: [No acute distress, alert, nontoxic] Heart: [Regular rate and rhythm, no murmurs, clicks, gallops, or rubs] Lungs: [Clear to auscultation bilaterally, breathing is nonlabored] Abdomen/GI: [Normal tones on auscultation, soft, nontender, nondistended] Musculoskeletal/extremities: [No clubbing, cyanosis, or edema] Vitals reviewed and are listed below Vital Signs (24 hrs) Temp Pulse Pulse Pulse Resp Resp BP 10/07/16 13:21 16 10/07/16 13:00 97.8 F 100 16 111/45 10/07/16 12:00 98.1 F 121 H 15 124/52 10/07/16 11:16 10/07/16 11:00 99.0 F 117 H 122 H 17 113/53 10/07/16 10:00 97.9 F 141 H 22 16 112/53 10/07/16 09:25 133 H 10/07/16 09:00 98.0 F 99 14 117/45 10/07/16 08:00 98.0 F 92 20 135/51 10/07/16 07:00 98.3 F 96 98 17 124/48 10/07/16 06:49 10/07/16 06:30 98 100 17 10/07/16 05:51 98.6 F 93 19 128/49 10/07/16 05:05 10/07/16 05:00 98.6 F 91 16 115/45 10/07/16 04:00 98.3 F 93 18 100/42 10/07/16 03:10 10/07/16 03:00 98.8 F 96 98 97 19 111/46 10/07/16 02:00 100 19 105/44 10/07/16 01:00 98.8 F 104 H 13 111/54 10/07/16 00:00 99.3 F 107 H 18 117/46 10/06/16 23:03 99.6 F 10/06/16 23:00 106 H 10/06/16 22:53 106 H 106 H 19 10/06/16 22:00 100.3 F H 10/06/16 21:00 109 H 19 102/43 10/06/16 19:12 10/06/16 19:00 103 H 103 H 107 H 18 110/47 10/06/16 17:54 97.3 F 98 13 104/42 10/06/16 17:00 97.7 F 101 H 14 115/48 10/06/16 16:00 97.2 F 100 13 108/44 10/06/16 15:50 10/06/16 15:15 97.8 F 101 H 13 70/36 10/06/16 15:00 102 H BP Pulse Ox 10/07/16 13:21 10/07/16 13:00 113/52 92 10/07/16 12:00 121/59 93 10/07/16 11:16 94 10/07/16 11:00 118/74 96 10/07/16 10:00 104/76 94 10/07/16 09:25 10/07/16 09:00 127/54 94 10/07/16 08:00 140/58 93 10/07/16 07:00 123/51 94 10/07/16 06:49 95 10/07/16 06:30 10/07/16 05:51 121/53 95 10/07/16 05:05 95 10/07/16 05:00 122/45 95 10/07/16 04:00 108/49 95 10/07/16 03:10 96 10/07/16 03:00 118/49 96 10/07/16 02:00 112/67 95 10/07/16 01:00 112/76 95 10/07/16 00:00 117/55 94 10/06/16 23:03 10/06/16 23:00 95 10/06/16 22:53 10/06/16 22:00 10/06/16 21:00 109/61 93 10/06/16 19:12 96 10/06/16 19:00 109/69 97 10/06/16 17:54 104/59 96 10/06/16 17:00 97/76 97 10/06/16 16:00 115/58 93 10/06/16 15:50 93 10/06/16 15:15 98/55 96 10/06/16 15:00 Assessment and Plan: 1. As per discharge assessments above 2. [place] [facility] [place] Condition on discharge, stable and improved. 4. Diet: regular diet 5. Activities: resume normal activities 6. Follow-Up: 1. [PCP] 2. 7. Medications at the Time of Discharge: Active Medications Generic Name Dose Route Start Last Admin Trade Name Freq PRN Reason Stop Dose Admin Aspirin 81 mg 10/07/16 13:00 10/07/16 13:11 Aspirin Ec PO 81 mg DAILY RANDEE Administration Sodium Chloride 25 mls @ 200 mls/hr 10/06/16 08:48 Normal Saline 0.9% IV .Post Infusion PRN No Primary IV for Flush ONLY Piperacillin Sod/Tazobactam 100 mls @ 200 mls/hr 10/06/16 13:00 10/07/16 13:47 Sod 3.375 gm/ Sodium Chloride IV 200 mls/hr Q6H RANDEE Administration Lactated Ringer's 1,000 mls @ 150 mls/hr 10/06/16 16:00 10/07/16 10:30 Lr PRIMARY IV 150 mls/hr .[id number] RANDEE Administration Diltiazem HCl 125 mg/ Sodium 125 mls @ 10 mls/hr 10/07/16 09:45 10/07/16 12:32 Chloride IV 15 mls/hr .TITRATE RANDEE Administration Protocol 10 MG/HR Sodium Chloride 500 mls @ 30 mls/hr 10/07/16 10:15 10/07/16 10:00 Normal Saline PRIMARY IV 30 mls/hr .[id number] RANDEE Administration Phenylephrine HCl 10,000 mcg/ 501 mls @ 118.73 mls/hr 10/07/16 12:30 10/07/16 14:10 Sodium Chloride IV 1 mcg/kg/min .TITRATE RANDEE Titration Protocol 0.5 MCG/KG/MIN Lidocaine HCl 0.5 ml 10/06/16 08:48 Lidocaine Buffered Inj SUBD ONCE PRN IV Starts Morphine Sulfate 2 mg 10/06/16 08:48 10/07/16 08:46 Morphine Inj IVP 2 mg Q2H PRN Administration Pain Morphine Sulfate 0 mg 10/07/16 09:00 10/07/16 10:03 Morphine Test Driver 1mg/Ml IV 30 mg .PER PROTOCOL RANDEE Administration Protocol Naloxone HCl 0.1 mg 10/07/16 08:51 Narcan Inj IVP 10/10/16 08:52 .PER [employer] ORDERS PRN Respiratory Depression Ondansetron HCl 4 mg 10/06/16 08:48 Zofran Inj IVP Q6H PRN NAUSEA Sodium Chloride 5 - 20 ml 10/06/16 08:48 Saline Flush IVP BID PRN Flush 8. Time, care, counseling and coordination of care for this discharge is greater than 30 minutes. Exam - Vitals Vital Signs: Vital Signs Temperature 97.8 F Temperature Source Temporal Artery Scan Pulse Rate [Telemetry] 100 Pulse Rate [Apical] 117 Pulse Rate [Pulse Oximeter 72 Right] Pulse Rate 133 Respiratory Rate [Abdomen] 16 Respiratory Rate 16 Blood Pressure [Left Radial 111/45 Artery] Blood Pressure [Right Arm] 113/52 Blood Pressure [Left Arm] 78/40 Blood Pressure 87/42 Pulse Ox 92 Oxygen Flow Rate [Abdomen] 25 Oxygen Flow Rate 25 Oxygen Flow Rate 10 Oxygen Delivery Method Vapotherm Height 5 ft 9 in Weight 79.379 kg
[2016-10-07 15:14] VITALS: RESP 21
--- NOTE | 2016-10-07 16:15 | DI ---
AP CHEST X-RAY, 10/07/2016 3:36 AM : Clinical History: Ischemic bowel. Status post resection. Sepsis. Previous Exam: 10/06/2016. The nasogastric tube tip is in the gastric fundus. The right subclavian catheter has been withdrawn s lightly and now is in the midportion of the superior vena cava. There is a small left pleural effusio n with left lower lobe atelectasis. The heart size is normal. There is no evidence of a descending ao rtic aneurysm. Reading: Left lower lobe atelectasis with a small left pleural effusion.
[2016-10-08] MEDS ORDERED: ASPIRIN EC 81 MG TABLET PO SCH (09:00)
== END 2016-10-07 16:05 | disposition short-term general hospital (02) | DRG 329 ==
LOC: ER 14:40 → MED/SURG 18:00 → ICU 10-06 08:40 → OPS 10-06 09:50 → ICU 10-06 14:45
PROVIDERS: ADMIT Internal Medicine; ATTEND Internal Medicine
PROC: 0D1L0Z4 Bypass Transverse Colon to Cutaneous, Open Approach (ICD-10-PCS; 2016-10-06)
PROC: 05H533Z Insertion of Infusion Device into Right Subclavian Vein, Percutaneous Approach (ICD-10-PCS; 2016-10-06)
PROC: 0DTG0ZZ Resection of Left Large Intestine, Open Approach (ICD-10-PCS; principal; 2016-10-06 09:30)
DX: K55.059 Acute (reversible) ischemia of intestine, part and extent unspecified (principal); K55.8 Other vascular disorders of intestine; A41.89 Other specified sepsis; N39.0 Urinary tract infection, site not specified; I10 Essential (primary) hypertension; I95.81 Postprocedural hypotension
CPT/HCPCS: 36415; 36600; 71010; 74177; 76705; 76775; 80053; 81001; 81003; 82150; 82803; 83605; 83690; 83735; 84484; 85007; 85025; 86850; 86900; 86901; 86922; 87040; 87088; 87493; 93005; 93010; 93701; 94660; 94761; 96374; 99285; A4216; J1170; J1630; J2250; J2270; J2370; J2543; J2710; J3010; J7030; J7040; J7050; J7060; J7120

== ENCOUNTER 2016-11-16 11:49 | Emergency (ER) | payer OTHER ==
[2016-11-16 12:35] VITALS: RESP 17; TEMP 96.3
[2016-11-16] MEDS ORDERED: Sodium Chloride 0.9% 1,000 ML PRIMARY IV ONE (12:53)
[2016-11-16] MEDS ORDERED: NORMAL SALINE 10 ML SYRINGE FLUSH IVP PRN (12:53)
--- NOTE | 2016-11-16 13:07 | EKG ---
[address] [place] [address] Measurements Intervals [place] Rate: 64 P: 0 PA: 235 QRS: -7 QRSD: 76 T: 57 QT: 379 QTc: 389 Interpretive Statements SINUS RHYTHM WITH FIRST DEGREE AV BLOCK LOW QRS VOLTAGE IN PRECORDIAL LEADS [QRS DEFLECTION < 1.0 mV IN CHEST LEADS] ST DEVIATION AND MODERATE T-WAVE ABNORMALITY, CONSIDER ANTERIOR ISCHEMIA [-0.1+ mV T WAVE IN V3/V4] Compared to ECG 10/07/2016 09:38:28 First degree AV block now present T-wave abnormality now present Possible ischemia now present Atrial fibrillation no longer present ST (T wave) deviation no longer present Electronically Signed On 11-16-16 17:03:15 MDT by Polo Garber MD [email or web address]
[2016-11-16 13:37] LABS: HEMOGLOBIN 12.4 g/dL (12.0-16.0)
[2016-11-16 13:38] LABS: BASOPHILS % (AUTO) 0.3 % (0-1); HEMATOCRIT 38.9 % (37.0-47.0); LYMPHOCYTES # (AUTO) 3.43 10*3/uL; MEAN CORPUSCULAR HEMOGLOBIN 30.2 PG (27-31); MEAN CORPUSCULAR HGB CONC 31.9 g/dL (33-37); MEAN CORPUSCULAR VOLUME 94.9 FL (81-99); MEAN PLATELET VOLUME 11.2 FL (7.4-12.2); MONOCYTES # (AUTO) 1.06 10*3/UL (0.3-0.8); MONOCYTES % (AUTO) 10.4 % (5-15); NEUTROPHILS % (AUTO) 54.6 % (50-80)
[2016-11-16 13:39] LABS: BASOPHILS # (AUTO) 0.03 10*3/UL; PLATELET MORPHOLOGY COMMENT NORMAL MORPHOLOGY (NORM); RBC MORPHOLOGY COMMENT NORMAL MORPHOLOGY (NORM); WBC MORPHOLOGY COMMENT NORMAL MORPHOLOGY (NORM)
[2016-11-16 13:41] LABS: BILIRUBIN,URINE NEGATIVE (NEG); COLOR,URINE YELLOW; GLUCOSE, URINE (UA) NEGATIVE (NEG); NITRATE,URINE NEGATIVE (NEG); OCCULT BLOOD,URINE NEGATIVE (NEG); PH,URINE 7.5 (5.0-8.5); PROTEIN,URINE NEGATIVE (NEG); UROBILINOGEN,URINE 0.2 EU/dL (0.2)
[2016-11-16 13:42] LABS: CALCIUM 8.6 mg/dL (8.7-10.7); SERUM ALBUMIN 3.8 g/dL (3.5-4.8)
[2016-11-16 14:04] LABS: CLARITY,URINE CLEAR (CLEAR)
[2016-11-16 14:06] LABS: RBC,URINE 0 /hpf; URINE SAMPLE TYPE CATH SPECIMEN; WBC,URINE 0
[2016-11-16 14:07] LABS: SQUAMOUS EPITHELIAL CELL,UR FEW
--- NOTE | 2016-11-16 14:51 | DI ---
CT ABDOMEN SCAN WITH IV CONTRAST, 11/16/2016 12:54 PM : Clinical History: Abdominal pain. Previous Exam: None at this facility. Scans are performed from the lower lung bases through the liver and kidneys with IV contrast. 65 ml o f Isovue 300 was injected IV. The lung bases are clear. The liver is normal. The patient is status post cholecystectomy. There is n o abnormality of the spleen, pancreas, and adrenal glands. Both kidneys are normal in size, shape, po sition and contour. There is no hydronephrosis or hydroureter. No renal or ureteral calculi are prese nt. There are no abnormal retrocrural or periaortic nodes. No ascites is present. There is a well-cir cumscribed ovoid soft tissue mass located lateral to the left iliac crest in the subcutaneous fat. Th is is in proximity to the colostomy site. This is consistent with a hematoma that measures approximat liv 8 x 11 x 13 cm. READIN. There is a large well-circumscribed fluid collection in proximity to the colostomy site on the le ft side and this measures approximately 8 x 11 x 13 cm and is located in the subcutaneous fat. This i s probably a hematoma. 2. The remainder of the exam is normal. CT PELVIS SCAN WITH IV CONTRAST, 11/16/2016 12:54 PM: Clinical History: See above. Previous Exam: None at this facility. Scans are performed from just superior to the umbilicus to the symphysis pubis with IV contrast. This is the same bolus of contrast used for the CT scans of the abdomen. Scans through the lower abdomen and pelvis show no masses or abnormal fluid collections. There is no adenopathy. The appendix is not visualized but there is no inflammatory mass either in the cecal tip or in the right lower quadrant. The small bowel, terminal ileum, and ileocecal valve are normal. 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 There ar e no hernias. The patient is status post hysterectomy and bilateral salpingo-oophorectomy. READING: Status post left colectomy with a diversion colostomy in the left lower quadrant. See above regarding the presumed hematoma adjacent to the colostomy site.
--- NOTE | 2016-11-16 16:57 | PDOC ---
General Adult HPI - General Chief Complaint: Abdomen Pain Stated Complaint: SWELLING NEAR RECENT COLOSTOMY/DECREASE IN OUTPUT Date Seen by Provider: 11/16/16 Time Seen by Provider: 12:30 Source: POSITIVE: Patient, Other (daughter) Exam Limitations: POSITIVE: No limitations Nurse's Notes Reviewed & Considered: Yes - History of Present Illness Initial Comment: The patient is a 76 year old female. 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 The initial surgery was performed at this hospital, but postoperatively the patient was transferred to [facility] [place] because of "heart problems"; the patient apparently developed a postoperative atrial fibrillation. At [facility] [place] the patient was noted to have some swelling to the left side of the abdomen adjacent to her colostomy. CT scan at that time is reported by the patient's daughter to have shown a postoperative hematoma. Review of medical records shows that the patient has a history of hypertension, coronary artery disease with a non-STEMI in July 2016. Patient does not smoke. She does have a history of hypoxia and is on home oxygen. She's had a appendectomy, hysterectomy, and a cholecystectomy. Patient is on Plavix but no anticoagulants. Patient is concerned because she has had a persistent swelling to the left side of her abdomen adjacent to her colostomy. She is also concerned because she does not think that she has been getting as much fecal effluent into the colostomy bag as normal. She denies any abdominal pain or cramping, except for mild discomfort at the site of her swelling just left of her colostomy. No vomiting. She states that she has had decreased stool output for the last 3 days, approximately. No fevers. Have you received a tetanus shot in the past 10 years?: No Body Location Affected: REPORTS: Abdomen Timing: REPORTS: Constant, Gradual Duration: >24 hours (3 days, approximately) Severity: Moderate Quality: REPORTS: "Pain" (Mild discomfort to abdominal swelling just left of colostomy) Context: DENIES: None, Sitting, Standing, Activity, Emotional stress, Coughing, Recent Trauma, Recent Surgery, Sleep, Rest, Lifting, Turning, Bending, Fall, Near Fall, Other Modifying Factors: improves with: Nothing Similar Symptoms Previously: No Recent Care Received: REPORTS: Recently Seen, Treated by MD, Hospitalized, Surgery (As above) Any Prior Injuries Related to Current Complaint?: No - Patient Home Medications Home Medications: Home Medications Duloxetine HCl 60 mg PO DAILY 07/06/16 Aspirin [Aspir 81] 81 mg PO DAILY 10/05/16 Clopidogrel [Plavix] 75 mg PO DAILY 10/05/16 Levothyroxine Sodium [Levothroid] 175 mcg PO DAILY 10/05/16 Magnesium Oxide 500 mg PO DAILY 10/05/16 Metoprolol Tartrate 25 mg PO DAILY 10/05/16 Amlodipine Besylate 2.5 mg PO DAILY 11/16/16 Pantoprazole Sodium 40 mg PO DAILY 11/16/16 - Patient Allergies Allergies/Adverse Reactions: Allergies Allergy/AdvReac Type Severity Reaction Status Date / Time cephalexin monohydrate AdvReac NOT Verified 11/16/16 12:11 [From [employer]] APPLICABLE Past Medical History - heen HEGARRETT History: Denies History Cardiovascular History: Hypertension Respiratory History: Home Oxygen Use, Other (please comment) Additional Respiratory History: HYPOXEMIA Gastrointestinal History: GERD, Colostomy, Other (please comment) Additional Gastrointestinal History: BOWEL RESECTION WITH COLOSTOMY PLACEMENT ON 10/06/2016 Genitourinary History: Denies History Endocrine History: Hypothyroidism Musculoskeletal History: Other (please comment) Prosthesis or Implant: No Additional Musculoskeletal History: RESTLESS LEG SYNDROME Neurological History: Denies History Blood Disorders: Denies History Psychiatric History: Depression, Anxiety Disorders History of Sexually Transmitted Diseases: No Female Reproductive History: Hysterectomy, Other (please comment) Additional Female Reproductive History: TUBAL LIGATION Cancer History: Denies History In Past Year Been Physically Harmed or Verbally Threatened: No (PER PATIENT) History of MDRO: No History of Other Communicable Diseases: No Tobacco Use: Never Smoker Alcohol Use: None Substance Use Type: None Previous Surgical History: Yes Type / Date of Surgery: HYSTERECTOMY. TUBAL LIGATION. CHOLECYSTECTOMY. TONSILLECTOMY. APPENDECTOMY. COLON RESECTION WITH COLOSTOMY PLACEMENT Anesthesia Reactions: No Malignant Hyperthermia: No Family History of Malignant Hyperthermia: No Significant Family History: No pertinent family hx Past Medical History Reviewed: Reviewed - No Changes ROS - Limitations ROS Limitations: No Limitations Constitution: REPORTS: Denies Symptoms Cardiovascular: REPORTS: Denies Cardiac Symptoms Respiratory: REPORTS: Denies Resp Symptoms Neurological: REPORTS: Denies Neuro Symptoms Gastrointestinal: REPORTS: Other (Decreased fecal effluent in colostomy bag. Swelling left of colostomy. See history of present illness.) Endocrine: REPORTS: Denies Symptoms Musculoskeletal: REPORTS: Denies MS Symptoms Genitourinary: REPORTS: Denies Symptoms Eyes: REPORTS: Denies Symptoms ENT: REPORTS: Denies Symptoms Skin: REPORTS: Denies Skin Symptoms Lympathic: REPORTS: Denies Lympathic Symptoms Immunologic: POSITIVE: Denies Symptoms Psychiatric: POSITIVE: Denies Psych Symptoms General Adult Exam - General Appearance General Appearance: POSITIVE: Alert, Cooperative, No Acute Distress, No Evidence of Trauma - HEENT HEENT: POSITIVE: Head Inspection Nml, Eyes Inspection Nml, Ears Inspection Nml, Nose Inspection Nml, Oral/Dental Inspect. Nml, Pharynx Inspect. Nml, PERRL, EOMI - Pupils Pupil Size: 4 mm: Bilateral (PERRLA) - Neck Neck: POSITIVE: Normal Inspection, Thyroid Normal - Respiratory Respiratory: POSITIVE: No Respiratory Distress, Breath Sounds Normal, Chest Non- Tender - Cardiovascular Cardiovascular: POSITIVE: Regular Rate & Rhythm, No Murmur, No Gallop, PMI Normal Peripheral Pulses: Radial (R): 2+, Radial (L): 2+ - Abdomen Abdomen: Soft: (All Quadrants), Normal Bowel Sounds: (All Quadrants), Denies Tenderness: (All Quadrants), No Splenomegaly: (All Quadrants), No Hepatomegaly: (All Quadrants), No Guarding: (All Quadrants), No Rebound: (All Quadrants), No Palpable Pulse: (All Quadrants), No Palpabale Mass: (All Quadrants), No Distention: (All Quadrants), No Rigidity: (All Quadrants) Additional Abdominal Details: Abdominal examination shows a colostomy on the left side of the abdomen with fecal effluent in the bag. Abdomen is nontender and bowel sounds are active. There is some swelling and a somewhat fluctuant mass just left of colostomy bag. No abdominal masses, organomegaly or rebound. - Back Back: POSITIVE: Normal Inspection - Skin Skin: POSITIVE: Normal Color, Warm, Dry, No Rash - Extremities Extremity: Non-Tender: (All Extremities), Normal ROM: (All Extremities), Normal Inspection: (All Extremities) - Neurological / Psychological Neurological: POSITIVE: Oriented X3, care technician Normal As Tested, Motor Normal, Sensation Normal, 5, 6 Images - Complete Complete: 1 - Colostomy 2 - Swelling General Adult Progress - Results Reviewed by me Xrays/CTs/US Reviewed by me: Yes Discussed with Radiologist: Yes Radiology Findings: CT scan of abdomen and pelvis with IV contrast shows no bowel obstruction or any intra-abdominal or intrapelvic pathology. There is a subcutaneous hematoma just left of the colostomy noted. Lab Results Reviewed: Yes Lab Results:: Laboratory Results 11/16/16 Range/Units 13:29 WBC 10.24 (4.8-10.8) 10^3/uL RBC 4.10 L (4.20-5.40) 10^6/uL Hgb 12.4 (12.0-16.0) g/dL Hct 38.9 (37.0-47.0) % MCV 94.9 (81-99) FL MCH 30.2 (27-31) PG MCHC 31.9 L (33-37) g/dL RDW Std Deviation 54.0 H (39-50) fL RDW Coeff of Sharri 16.1 H (11.5-14.5) % Plt Count 396 H (140-350) 10*3/uL MPV 11.2 (7.4-12.2) FL Immature Gran % (Auto) 0.2 (0-5) % Neut % (Auto) 54.6 (50-80) % Lymph % (Auto) 33.5 (10-50) % [place] % (Auto) 10.4 (5-15) % Eos % (Auto) 1.0 (0-8) % Baso % (Auto) 0.3 (0-1) % Immature Gran # (Auto) 0.02 10*3/UL Neut # (Auto) 5.60 10*3/UL Lymph # (Auto) 3.43 10*3/uL [place] # (Auto) 1.06 H (0.3-0.8) 10*3/UL Eos # (Auto) 0.10 10*3/UL Baso # (Auto) 0.03 10*3/UL WBC Morphology Comment Normal morphology (NORM) Plt Morphology Comment Normal morphology (NORM) RBC Morph Comment Normal morphology (NORM) Sodium 134 L (135-145) meq/L Potassium 3.7 L (3.8-5.2) meq/L Chloride 97 L (98-112) meq/L Carbon Dioxide 27 (23-33) meq/L Anion Gap 10 (5-20) BUN 16 (7-22) mg/dL Creatinine 0.8 (0.50-1.20) mg/dL Estimated GFR (>60 ml/min/1.73m(2)) BUN/Creatinine Ratio 20.00 (6-20) Glucose 100 (78-110) mg/dL Calculated Osmolality 278.0 (267-292) mOsm/kg Calcium 8.6 L (8.7-10.7) mg/dL Total Bilirubin 0.5 (0.3-1.2) mg/dL AST 17 (8-39) IU/L ALT 15 (9-52) IU/L Alkaline Phosphatase 71 (38-126) IU/L Total Protein 7.0 (6.1-8.0) g/dL Albumin 3.8 (3.5-4.8) g/dL Globulin 3.2 (2.50-4.10) g/dL Albumin/Globulin Ratio 1.10 L (1.3-2.0) mg/g Amylase 49 (30-110) U/L Lipase 69 (23-300) IU/L Ur Collection Type Cath specimen Urine Color Yellow Urine Clarity Clear (CLEAR) Urine pH 7.5 (5.0-8.5) Ur Specific [place] 1.015 (1.005-1.030) Urine Protein Negative (NEG) mg/dl Urine Glucose (UA) Negative (NEG) mg/dL Urine Ketones Negative (NEG) Urine Occult Blood Negative (NEG) Urine Nitrate Negative (NEG) Urine Bilirubin Negative (NEG) Urine Urobilinogen 0.2 (0.2) EU/dL Ur Leukocyte Esterase Trace (NEG) Urine RBC 0 (NONE) /hpf Urine WBC 0 (NONE) Ur Squamous Epith Cells Few (NONE) Ur Renal Epithelial Cell None (NONE) Urine Crystals None Urine Bacteria None (NONE) Urine Casts None (NONE) Urine Mucus None (NONE) Urine Trichomonas None (NONE) Urine Yeast None (NONE) Ur Culture Indicated? Culture not set EKG Interpreted/Reviewed By Me:: Yes (sinus rhythm; first-degree AV block) EKG Interpretation:: POSITIVE: Normal Sinus Rhythm, Normal Rate, Normal [place], Normal QRS, Normal ST/T. NEGATIVE: Normal Intervals (First-degree AV block), Abnormal EKG (First-degree AV block) - Patient's Progress Pain Medication Addressed: POSITIVE: Not Applicable School/Work Release Addressed: POSITIVE: Not Applicable Re-Examine Time: 15:20 Re-Examine Comment: Patient reassured with regard to postoperative subcutaneous hematoma. Since the patient first presented to the emergency room there has been increased fecal effluent into her colostomy bag. Advised patient to make sure she observed good oral intake and fluid intake. Status: POSITIVE: Unchanged, Re-Examined Antibiotics Given: No - Consult Counseled: POSITIVE: Patient, Family, RE: Lab Results, RE: Radiology Results, RE : DX, RE: Need for F/U Patient Care Time - Estimated PCT Patient Care Time (In Minutes): 55 Vital Signs - Recent Vital Signs Vital Signs: Vital Signs (Last 8 hours) Temp Pulse Resp BP Pulse Ox 11/16/16 11:49 96.3 F L 58 L 17 140/87 96 - VS Reviewed Vital Signs Reviewed: Yes Discharge Clinical Impression: Hematoma complicating a procedure Discharge Disposition: Discharged to Home Condition: Stable Patient Instructions Given at Discharge: Hematoma (ED) Additional Instructions: You have a large subcutaneous hematoma just left of your colostomy, which is due to your recent colostomy. There is no signs of obstruction or any other abnormality. I believe this hematoma will slowly resorb, but this can take several weeks. Follow-up with your surgeon as he has directed. I believe you' re colostomy is functioning normally. Return here anytime if condition worsens in any way whatsoever. Follow Up With: COLE VELAZQUEZ [Primary Care Provider] - (Follow-up with your surgeon and primary care provider. Return here anytime if condition worsens. Warm moist compresses to your abdominal hematoma may help it resorb sooner.)
== END 2016-11-16 15:45 | disposition home or self-care (01) ==
LOC: ER 11:49
DX: K91.870 Postprocedural hematoma of a digestive system organ or structure following a digestive system procedure (principal); G89.18 Other acute postprocedural pain; I10 Essential (primary) hypertension; I25.10 Atherosclerotic heart disease of native coronary artery without angina pectoris; I25.2 Old myocardial infarction
CPT/HCPCS: 74177; 80053; 81001; 81003; 82150; 83690; 85025; 93005; 93010; 99284; J7030

== ENCOUNTER 2016-11-17 20:56 | Observation (INO) | payer OTHER ==
[2016-11-17] MEDS ORDERED: NORMAL SALINE 10 ML SYRINGE FLUSH IVP PRN (21:14)
[2016-11-17] MEDS ORDERED: ONDANSETRON 4 MG/2 ML VIAL IVP ONE ×2 (21:14→22:51)
[2016-11-17] MEDS ORDERED: Sodium Chloride 0.9% 1,000 ML PRIMARY IV ONE (21:14)
[2016-11-17] MEDS ORDERED: PANTOPRAZOLE 40 MG TABLET PO ONE (21:16)
[2016-11-17] MEDS ORDERED: Pantoprazole Inj 40 MG in Normal Saline Flush 10 ML IVP ONE (21:20)
--- NOTE | 2016-11-17 21:36 | EKG ---
[address] [place] [address] Measurements Intervals [place] Rate: 63 P: [place]: 0 QRS: -18 QRSD: 74 T: 0 QT: 369 QTc: 376 Interpretive Statements SINUS RHYTHM WITH HIGH GRADE AV BLOCK (but baseline noise compromises interpretation) LOW QRS VOLTAGE [QRS DEFLECTION < 0.5/1.0 mV IN LIMB/CHEST LEADS] ST DEVIATION AND MODERATE T-WAVE ABNORMALITY, CONSIDER ANTERIOR ISCHEMIA [-0.1+ mV T WAVE IN V3/V4] Compared to ECG 11/16/2016 13:02:39 First degree AV block no longer present T-wave abnormality still present Possible ischemia still present Electronically Signed On 11-23-16 09:42:52 MDT by Polo Garber MD [id number]
[2016-11-17 22:04] LABS: BASOPHILS # (AUTO) 0.04 10*3/UL; BASOPHILS % (AUTO) 0.3 % (0-1); EOSINOPHILS # (AUTO) 0.12 10*3/UL; EOSINOPHILS % (AUTO) 0.9 % (0-8); HEMATOCRIT 38.5 % (37.0-47.0); HEMOGLOBIN 12.3 g/dL (12.0-16.0); LYMPHOCYTES # (AUTO) 3.09 10*3/uL; MEAN CORPUSCULAR HEMOGLOBIN 30.4 PG (27-31); MEAN CORPUSCULAR HGB CONC 31.9 g/dL (33-37); MEAN CORPUSCULAR VOLUME 95.1 FL (81-99); MEAN PLATELET VOLUME 11.4 FL (7.4-12.2); MONOCYTES # (AUTO) 1.37 10*3/UL (0.3-0.8); MONOCYTES % (AUTO) 10.5 % (5-15); NEUTROPHILS # (AUTO) 8.43 10*3/UL; NEUTROPHILS % (AUTO) 64.5 % (50-80); RED BLOOD COUNT 4.05 10^6/uL (4.20-5.40)
[2016-11-17 22:06] LABS: PLATELET MORPHOLOGY COMMENT NORMAL MORPHOLOGY (NORM); RBC MORPHOLOGY COMMENT NORMAL MORPHOLOGY (NORM); WBC MORPHOLOGY COMMENT NORMAL MORPHOLOGY (NORM)
[2016-11-17 22:18] LABS: BUN/CREATININE RATIO 18.57 (6-20); C-REACTIVE PROTEIN 0.5 mg/dL (0.0-0.9); MAGNESIUM 1.9 mg/dL (1.6-2.4); SERUM ALBUMIN 3.6 g/dL (3.5-4.8)
--- NOTE | 2016-11-17 23:12 | PDOC ---
General Adult HPI - General Chief Complaint: Nausea / Vomiting / Diarrhea Stated Complaint: vomitting Date Seen by Provider: 11/17/16 Time Seen by Provider: 21:00 Source: POSITIVE: Patient Exam Limitations: POSITIVE: No limitations Nurse's Notes Reviewed & Considered: Yes - History of Present Illness Initial Comment: The patient is a 76-year-old female who presents to the emergency department with vomiting She has a complicated medical course recently. She was admitted in September of this year with abdominal pain and found to have ischemic bowel. She subsequently developed sepsis and required emergent surgery which resulted in a hemicolectomy and colostomy. Postoperatively she had atrial fibrillation with rapid ventricular response and elevated troponin consistent with non- STEMI. She was subsequently transferred to [place] for further care. After being discharged from the hospital there she went to the intermediate in [place] for rehabilitation. While there she had developed some increased abdominal pain just lateral to the colostomy site and swelling and was reevaluated in the hospital in [place] and found to have a subcutaneous hematoma. She was discharged from rehabilitation last week it has been home now less than a week. Yesterday she was having some increased abdominal pain and was evaluated here in the emergency room. She had relatively normal blood work and had a CAT scan of her abdomen and pelvis which revealed a large subcutaneous hematoma and no other acute findings. She had been discharged home. Today however she is had increased nausea and has been unable to eat or drink anything without having vomiting. She has had a small amount of stool out the colostomy bag. She denies any associated fevers or chills or urinary complaints. After arrival here in the emergency room she also developed some burning chest and epigastric pain which she described as being like a bubble. Have you received a tetanus shot in the past 10 years?: Unknown - Patient Home Medications Home Medications: Home Medications Duloxetine HCl 60 mg PO DAILY 07/06/16 Aspirin [Aspir 81] 81 mg PO DAILY 10/05/16 Clopidogrel [Plavix] 75 mg PO DAILY 10/05/16 Levothyroxine Sodium [Levothroid] 175 mcg PO DAILY 10/05/16 Magnesium Oxide 500 mg PO DAILY 10/05/16 Metoprolol Tartrate 25 mg PO DAILY 10/05/16 Amlodipine Besylate 2.5 mg PO DAILY 11/16/16 Pantoprazole Sodium 40 mg PO DAILY 11/16/16 - Patient Allergies Allergies/Adverse Reactions: Allergies Allergy/AdvReac Type Severity Reaction Status Date / Time cefdinir AdvReac NOT Verified 11/17/16 20:59 APPLICABLE celecoxib AdvReac NOT Verified 11/17/16 20:59 APPLICABLE cephalexin monohydrate AdvReac NOT Verified 11/17/16 20:59 [From Keflex] APPLICABLE Past Medical History - heen HEENT History: Denies History Cardiovascular History: Hypertension Respiratory History: Home Oxygen Use, Other (please comment) Additional Respiratory History: HYPOXEMIA Gastrointestinal History: GERD, Colostomy, Other (please comment) Additional Gastrointestinal History: BOWEL RESECTION WITH COLOSTOMY PLACEMENT ON 10/06/2016 Genitourinary History: Denies History Endocrine History: Hypothyroidism Musculoskeletal History: Other (please comment) Prosthesis or Implant: No Additional Musculoskeletal History: RESTLESS LEG SYNDROME Neurological History: Denies History Blood Disorders: Denies History Psychiatric History: Depression, Anxiety Disorders History of Sexually Transmitted Diseases: No Cancer History: Denies History In Past Year Been Physically Harmed or Verbally Threatened: No History of MDRO: No History of Other Communicable Diseases: No Tobacco Use: Never Smoker Alcohol Use: None Substance Use Type: None Previous Surgical History: Yes Type / Date of Surgery: HYSTERECTOMY. TUBAL LIGATION. CHOLECYSTECTOMY. TONSILLECTOMY. APPENDECTOMY. COLON RESECTION WITH COLOSTOMY PLACEMENT Anesthesia Reactions: No Malignant Hyperthermia: No Significant Family History: No pertinent family hx Past Medical History Reviewed: Reviewed - No Changes ROS - Limitations ROS Limitations: No Limitations Constitution: DENIES: Chills, Fever Cardiovascular: REPORTS: Chest Pain (Burning chest pain) Respiratory: REPORTS: Denies Resp Symptoms. DENIES: Shortness Of Breath Neurological: REPORTS: Denies Neuro Symptoms Gastrointestinal: REPORTS: Nausea, Vomitting, Other (Small amount of stool out of the colostomy, no blood in the stool, no complaints of increased abdominal pain) Musculoskeletal: REPORTS: Denies MS Symptoms Eyes: REPORTS: Denies Symptoms ENT: REPORTS: Denies Symptoms Skin: DENIES: Rash General Adult Exam - General Appearance General Appearance: POSITIVE: Alert, Cooperative, No Acute Distress, Other (She does appear chronically ill) - HEENT HEENT: POSITIVE: Head Inspection Nml, Eyes Inspection Nml, Ears Inspection Nml, Nose Inspection Nml, Pharynx Inspect. Nml, Dry Mucous Membranes - Neck Neck: POSITIVE: Normal Inspection - Respiratory Respiratory: POSITIVE: No Respiratory Distress, Breath Sounds Normal - Cardiovascular Cardiovascular: POSITIVE: Regular Rate & Rhythm, No Murmur - Abdomen Abdomen: Soft: (All Quadrants), Normal Bowel Sounds: (All Quadrants), No Guarding: (All Quadrants), No Rebound: (All Quadrants) Additional Abdominal Details: She does have a midline incision from recent surgery which is well healed, no drainage from the wound or surrounding induration. She has a colostomy located in the left lower abdomen and there is a small amount of yellowish-brown stool within the bag. She does have a large hematoma lateral to the colostomy in the subcutaneous abdomen, there does not appear to be any obvious induration. General Adult Progress - Results Reviewed by me Xrays/CTs/US Reviewed by me: Yes Radiology Findings: Abdominal series reveals no evidence of free air, nonobstructive bowel gas pattern Lab Results Reviewed: Yes Lab Results:: Laboratory Results 11/17/16 Range/Units 22:02 WBC 13.08 H (4.8-10.8) 10^3/uL RBC 4.05 L (4.20-5.40) 10^6/uL Hgb 12.3 (12.0-16.0) g/dL Hct 38.5 (37.0-47.0) % MCV 95.1 (81-99) FL MCH 30.4 (27-31) PG MCHC 31.9 L (33-37) g/dL RDW Std Deviation 55.7 H (39-50) fL RDW Coeff of Sharri 16.4 H (11.5-14.5) % Plt Count 387 H (140-350) 10*3/uL MPV 11.4 (7.4-12.2) FL Immature Gran % (Auto) 0.2 (0-5) % Neut % (Auto) 64.5 (50-80) % Lymph % (Auto) 23.6 (10-50) % [place] % (Auto) 10.5 (5-15) % Eos % (Auto) 0.9 (0-8) % Baso % (Auto) 0.3 (0-1) % Immature Gran # (Auto) 0.03 10*3/UL Neut # (Auto) 8.43 10*3/UL Lymph # (Auto) 3.09 10*3/uL [place] # (Auto) 1.37 H (0.3-0.8) 10*3/UL Eos # (Auto) 0.12 10*3/UL Baso # (Auto) 0.04 10*3/UL WBC Morphology Comment Normal morphology (NORM) Plt Morphology Comment Normal morphology (NORM) RBC Morph Comment Normal morphology (NORM) Sodium 137 (135-145) meq/L Potassium 3.6 L (3.8-5.2) meq/L Chloride 104 (98-112) meq/L Carbon Dioxide 25 (23-33) meq/L Anion Gap 8 (5-20) BUN 13 (7-22) mg/dL Creatinine 0.7 (0.50-1.20) mg/dL Estimated GFR (>60 ml/min/1.73m(2)) BUN/Creatinine Ratio 18.57 (6-20) Glucose 100 (78-110) mg/dL Calculated Osmolality 283.0 (267-292) mOsm/kg Calcium 9.0 (8.7-10.7) mg/dL Magnesium 1.9 (1.6-2.4) mg/dL Total Bilirubin 0.5 (0.3-1.2) mg/dL AST 26 (8-39) IU/L ALT 20 (9-52) IU/L Alkaline Phosphatase 69 (38-126) IU/L Troponin I 0.016 (< 0.040) ng/mL C-Reactive Protein 0.5 (0.0-0.9) mg/dL Total Protein 6.8 (6.1-8.0) g/dL Albumin 3.6 (3.5-4.8) g/dL Globulin 3.2 (2.50-4.10) g/dL Albumin/Globulin Ratio 1.10 L (1.3-2.0) mg/g Amylase 41 (30-110) U/L Lipase 54 (23-300) IU/L EKG Interpreted/Reviewed By Me:: Yes EKG Interpretation:: POSITIVE: Normal Sinus Rhythm, Normal Rate, Other (She does have T-wave inversions in lead V2 and V3 which is unchanged from previous some artifact noted in the inferior leads and lead 1) - Patient's Progress MDM / ED Course: Shortly after arrival an IV was established and the patient did receive a 1 L bolus of normal saline as well as Zofran and Protonix IV. She was complaining of burning chest pain and an EKG was performed. This did show some T-wave inversions in V2 and V3 which is unchanged from previous. Her lab work reveals a mildly elevated white count at 13,000 which is up from 10,000 yesterday. The remainder of her blood work is essentially unremarkable with a normal troponin and mildly low potassium at 3.6. She reported that the burning chest pain was improving after administration of Protonix. Because of the patient's recent surgery I did discuss patient with Dr. Dorsey. He stated that he would see the patient in consultation while she is here in the hospital. Subsequently contacted Dr. Monique and he has agreed to admit the patient. - Consult Counseled: POSITIVE: Patient, Family, RE: Lab Results, RE: Radiology Results, RE : DX, RE: Need for F/U Patient Care Time - Estimated PCT Patient Care Time (In Minutes): 30 Vital Signs - Recent Vital Signs Vital Signs: Vital Signs (Last 8 hours) Temp Pulse Resp BP Pulse Ox 11/17/16 20:56 97.6 F 71 18 157/75 95 - VS Reviewed Vital Signs Reviewed: Yes Discharge Clinical Impression: Nausea and vomiting, Dehydration Discharge Disposition: Admit to Inpatient Condition: Stable Date Decision to Admit to Inpatient: 11/17/16 Time Decision to Admit to Inpatient: 10:45
--- NOTE | 2016-11-17 23:53 | PDOC ---
History and Physical - History of Present Illness Date and Time of Service: 11/17/2016 11:52 PM Chief Complaint: Vomiting that started this afternoon History of Present Illness: This is a 76 years old female with medical history significant for history of coronary artery disease with previous AR July 2016, hypertension and hypothyroidism and recent complicated history in September of this year when she presented with ischemic colitis she had with surgery right hemicolectomy postoperatively she developed an elevation in her troponin and she developed a postoperative A. fib and [place] [facility] [place] period of time, post discharge apparently she developed a hematoma and she was [place] [facility] [place] for a night and she was [facility] she came back from the [facility] about a week ago, had some abdominal pain yesterday presented to the ER had a CT which showed hematoma and she was discharged home, today in the afternoon she started to have some nausea and she vomited and because of that the they brought her to the hospital there was no abdominal pain according to her but she had some vague sensation that she described as a bubble in the chest could not tell me how long that lasted all she could say that I don't know what she could tell me she doesn't have any pain right now. The ER physician spoke with Dr. Dorsey who suggested admission to the hospitalist service and he will see her in the morning. Patient is currently denying symptoms as I said. There is still some output from the colostomy. No dysuria or hematuria no dizziness. Past Medical History Medical History: 1. Coronary artery disease with non-ST AR in July 2016. 2. Hypertension. 3. Hypothyroidism. 4. Chronic hypoxemia supposed to be on oxygen but however she doesn't wear it all the time. She supposed to be on 2 L a day. 5. Recent admission to the hospital for ischemic colitis status post right hemicolectomy. 6. Left abdominal wall hematoma discovered 2 weeks ago. 7. Episode of atrial fibrillation postoperatively Surgical History: History of appendectomy. Status post right hemicolectomy and diversion colostomy for ischemic colitis September 2016 Family History: Reviewed an Not Pertinent Past Social History: Doesn't smoke, rarely drinks no drugs. She moved her from [place] with her in 2014 Tobacco Use: Never Smoker Substance Use Type: None Alcohol Use: Rarely Medication / Allergies Home Medications: Home Medications Medication Instructions Recorded Confirmed Type Duloxetine HCl 60 mg PO DAILY 07/06/16 11/17/16 History Aspirin [Aspir 81] 81 mg PO DAILY 10/05/16 11/18/16 History Clopidogrel [Plavix] 75 mg PO DAILY 10/05/16 11/18/16 History Levothyroxine Sodium [Levothroid] 175 mcg PO DAILY 10/05/16 11/18/16 History Magnesium Oxide 500 mg PO DAILY 10/05/16 11/18/16 History Metoprolol Tartrate 25 mg PO DAILY 10/05/16 11/18/16 History Amlodipine Besylate 2.5 mg PO DAILY 11/16/16 11/18/16 History Pantoprazole Sodium 40 mg PO DAILY 11/16/16 11/18/16 History Allergies/Adverse Reactions: Allergies Allergy/AdvReac Type Severity Reaction Status Date / Time cefdinir AdvReac NOT Verified 11/17/16 23:46 APPLICABLE celecoxib AdvReac NOT Verified 11/17/16 23:46 APPLICABLE cephalexin monohydrate AdvReac NOT Verified 11/17/16 23:46 [From Keflex] APPLICABLE Review of Systems - Review of Systems All Systems: Reviewed & No Additional Complaints Except as Stated Exam - General General Appearance: POSITIVE: No Acute Distress, Cooperative, Thin - Head Head Exam: POSITIVE: Normal Inspection - Eye Eye Exam: POSITIVE: Normal Appearance - ENT ENT Exam: POSITIVE: Normal Exam - Neck Neck Exam: POSITIVE: Normal Inspection - Respiratory Respiratory Exam: POSITIVE: Clear to Auscultation - Bilaterally - Cardiovascular Cardiovascular Exam: POSITIVE: RRR - GI/Abdominal GI/Abdominal Exam: POSITIVE: Normal Bowel Sounds, Non Distended, Soft Additional GI/Abdominal Exam Details: There is a colostomy in the left lower quadrant and laterally there is a big swelling that is fluctuant but nontender skin is not read. Vague tenderness in the epigastrium. - Extremities Extremities Exam: POSITIVE: Normal Inspection - Back Back Exam: POSITIVE: Normal Inspection - Neurological Neurological Exam: POSITIVE: Alert, Oriented x 3, CN II-XII Intact, Moves All Extremities Equally - Psychiatric Psychiatric Exam: POSITIVE: Normal Affect Results - Labs CBC and BMP: 11/18/16 06:14 11/18/16 06:14 Assessment and Plan - Patient Problems (1) Nausea and vomiting Current Visit: Yes Status: Acute Comment: Unclear reason I think will watch her overnight give her some fluid repeat her labs in the morning and consult surgery. Continue Protonix. Repeat cardiac enzymes. Check UA. (2) History of coronary artery disease Current Visit: No Status: Acute Comment: Continue previous medications (3) Hematoma Current Visit: Yes Status: Acute Comment: This is been going on for at least 2 weeks and see their opinion of Dr. Dorsey about aspirating it Photo / Body Diagrams - Uploaded Photos Uploaded Photos:
[2016-11-18] MEDS ORDERED: ONDANSETRON 4 MG/2 ML VIAL IVP PRN (00:01)
[2016-11-18] MEDS ORDERED: NORMAL SALINE 10 ML SYRINGE FLUSH IVP PRN (00:01)
[2016-11-18] MEDS ORDERED: LIDOCAINE W/ SODIUM BICARB 0.5 ML SYR SUBD PRN (00:01)
[2016-11-18] MEDS ORDERED: Sodium Chloride 0.9% 1,000 ML PRIMARY IV SCH (00:15)
[2016-11-18 05:15] LABS: BILIRUBIN,URINE NEGATIVE (NEG); COLOR,URINE YELLOW; GLUCOSE, URINE (UA) NEGATIVE (NEG); NITRATE,URINE POSITIVE (NEG); OCCULT BLOOD,URINE MODERATE (NEG); PROTEIN,URINE 30 mg/dl (NEG)
[2016-11-18] MEDS ORDERED: LEVOTHYROXINE 75 MCG TABLET PO SCH (05:30)
[2016-11-18] MEDS ORDERED: LEVOTHYROXINE 100 MCG TABLET PO SCH (05:30)
[2016-11-18 05:35] LABS: CLARITY,URINE SLIGHTLY CLOUDY (CLEAR)
[2016-11-18 05:36] LABS: RENAL EPITHELIAL CELLS,URINE MODERATE; SQUAMOUS EPITHELIAL CELL,UR MANY; URINE SAMPLE TYPE CLEAN CATCH URINE; WBC,URINE >100
[2016-11-18 05:37] LABS: BACTERIA,URINE MODERATE; URINE CRYSTALS MODERATE
[2016-11-18 06:45] LABS: BASOPHILS # (AUTO) 0.03 10*3/UL; BASOPHILS % (AUTO) 0.3 % (0-1); EOSINOPHILS # (AUTO) 0.09 10*3/UL; HEMATOCRIT 35.6 % (37.0-47.0); HEMOGLOBIN 11.2 g/dL (12.0-16.0); LYMPHOCYTES # (AUTO) 2.55 10*3/uL; MEAN CORPUSCULAR HEMOGLOBIN 30.6 PG (27-31); MEAN CORPUSCULAR HGB CONC 31.5 g/dL (33-37); MEAN CORPUSCULAR VOLUME 97.3 FL (81-99); MEAN PLATELET VOLUME 11.5 FL (7.4-12.2); MONOCYTES # (AUTO) 0.84 10*3/UL (0.3-0.8); NEUTROPHILS # (AUTO) 5.81 10*3/UL; NEUTROPHILS % (AUTO) 62.1 % (50-80); PLATELET MORPHOLOGY COMMENT NORMAL MORPHOLOGY (NORM); RBC MORPHOLOGY COMMENT NORMAL MORPHOLOGY (NORM); RED BLOOD COUNT 3.66 10^6/uL (4.20-5.40); WBC MORPHOLOGY COMMENT NORMAL MORPHOLOGY (NORM)
[2016-11-18 06:56] LABS: BUN/CREATININE RATIO 17.14 (6-20); CALCIUM 8.4 mg/dL (8.7-10.7)
--- NOTE | 2016-11-18 09:09 | PDOC(PROG) ---
Date and Time of Service: 11/18/2016 9:06 AM Interval History: Subjective Patient feels better, denying symptoms. There is no abdominal pain. She didn' t vomit since she's been here. She is denying dysuria or frequency. Objective : Data - Labs CBC and BMP: 11/18/16 06:14 11/18/16 06:14 Labs - Last 24 Hours: Laboratory Results 11/18/16 11/18/16 Range/Units 05:05 06:14 WBC 9.35 (4.8-10.8) 10^3/uL RBC 3.66 L (4.20-5.40) 10^6/uL Hgb 11.2 L (12.0-16.0) g/dL Hct 35.6 L (37.0-47.0) % MCV 97.3 (81-99) FL MCH 30.6 (27-31) PG MCHC 31.5 L (33-37) g/dL RDW Std Deviation 57.5 H (39-50) fL RDW Coeff of Sharri 16.8 H (11.5-14.5) % Plt Count 347 (140-350) 10*3/uL MPV 11.5 (7.4-12.2) FL Immature Gran % (Auto) 0.3 (0-5) % Neut % (Auto) 62.1 (50-80) % Lymph % (Auto) 27.3 (10-50) % [place] % (Auto) 9.0 (5-15) % Eos % (Auto) 1.0 (0-8) % Baso % (Auto) 0.3 (0-1) % Immature Gran # (Auto) 0.03 10*3/UL Neut # (Auto) 5.81 10*3/UL Lymph # (Auto) 2.55 10*3/uL [place] # (Auto) 0.84 H (0.3-0.8) 10*3/UL Eos # (Auto) 0.09 10*3/UL Baso # (Auto) 0.03 10*3/UL WBC Morphology Comment Normal morphology (NORM) Plt Morphology Comment Normal morphology (NORM) RBC Morph Comment Normal morphology (NORM) Sodium 139 (135-145) meq/L Potassium 3.8 (3.8-5.2) meq/L Chloride 107 (98-112) meq/L Carbon Dioxide 27 (23-33) meq/L Anion Gap 5 (5-20) BUN 12 (7-22) mg/dL Creatinine 0.7 (0.50-1.20) mg/dL Estimated GFR (>60 ml/min/1.73m(2)) BUN/Creatinine Ratio 17.14 (6-20) Glucose 101 (78-110) mg/dL Calculated Osmolality 287.0 (267-292) mOsm/kg Calcium 8.4 L (8.7-10.7) mg/dL Troponin I < 0.012 (< 0.040) ng/mL Ur Collection Type Clean catch urine Urine Color Yellow Urine Clarity Slightly cloudy (CLEAR) Urine pH 7.0 (5.0-8.5) Ur Specific [place] 1.020 (1.005-1.030) Urine Protein 30 (NEG) mg/dl Urine Glucose (UA) Negative (NEG) mg/dL Urine Ketones Trace (NEG) Urine Occult Blood Moderate H (NEG) Urine Nitrate Positive H (NEG) Urine Bilirubin Negative (NEG) Urine Urobilinogen 1.0 (0.2) EU/dL Ur Leukocyte Esterase Large (NEG) Urine RBC 1-3 (NONE) /hpf Urine WBC >100 (NONE) Ur Squamous Epith Cells Many (NONE) Ur Renal Epithelial Cell Moderate (NONE) Urine Crystals Moderate Urine Bacteria Moderate (NONE) Urine Casts None (NONE) Urine Mucus Moderate (NONE) Urine Trichomonas None (NONE) Urine Yeast None (NONE) Ur Culture Indicated? Culture set Objective : Exam - General General Appearance: No Acute Distress, Cooperative - Head Head Exam: Normal Inspection, Atraumatic - Eye Eye Exam: Normal Appearance - ENT ENT Exam: Normal Exam - Neck Neck Exam: Normal Inspection - Respiratory Respiratory Exam: Clear to Auscultation - Bilaterally - Cardiovascular Cardiovascular Exam: RRR - GI/Abdominal GI/Abdominal Exam: Normal Bowel Sounds, Non Distended, Soft Additional GI/Abdominal Exam Details: There is no significant tenderness in the abdomen. There is a swelling in the left lateral abdominal wall some fluctuation present nontender and skin is not red. - Rectal Rectal Exam: Deferred - External Exam: Deferred - Extremities Extremities Exam: Normal Inspection - Back Back Exam: Normal Inspection - Neurological Neurological Exam: Alert - Psychiatric Psychiatric Exam: Normal Affect - Integumentary Integumentary Exam: Normal Color Assessment and Plan - Patient Problems (1) Nausea and vomiting Current Visit: Yes Status: Acute Comment: This is resolved. The UA suggestive of urinaryTract infection will start her on antibiotics. We'll cut back on the fluid will keep her another day in the hospital. (2) History of coronary artery disease Current Visit: No Status: Acute Comment: Continue same medication (3) Hematoma Current Visit: Yes Status: Acute Comment: Spoke with Dr. Dorsey who saw the patient patient refused aspiration. (4) UTI (urinary tract infection) Current Visit: No Status: Acute Comment: Urine is suggestive of UTI will put her on antibiotics. Culture was sent. (5) Hypothyroidism Current Visit: Yes Status: Acute Comment: She has history of hypothyroidism and and she is on replacement we checked T4 ,TSH and TSH is suppressed and T4 was elevated so we'll cut back on the dosage , I think she lost some weight compared to the last time I saw her so probably she need less dose than she used to. Photo / Body Diagrams - Uploaded Photos Uploaded Photos:
--- NOTE | 2016-11-18 09:11 | PDOC(PROG) ---
Date and Time of Service: 11/18/2016 at 835 Interval History: Patient said to visits emergency room. One on on 11/16/2016 was for abdominal pain workup was unremarkable. On November 17 she came in for nausea and vomiting. Abdominal films at this time showed no evidence of bowel obstruction. Her CT scan that was done the day before showed a large subcutaneous hematoma. This morning urinalysis came back positive for UTI. Objective : Data - Labs CBC and BMP: 11/18/16 06:14 11/18/16 06:14 Labs - Last 24 Hours: Laboratory Results 11/18/16 11/18/16 Range/Units 05:05 06:14 WBC 9.35 (4.8-10.8) 10^3/uL RBC 3.66 L (4.20-5.40) 10^6/uL Hgb 11.2 L (12.0-16.0) g/dL Hct 35.6 L (37.0-47.0) % MCV 97.3 (81-99) FL MCH 30.6 (27-31) PG MCHC 31.5 L (33-37) g/dL RDW Std Deviation 57.5 H (39-50) fL RDW Coeff of Sharri 16.8 H (11.5-14.5) % Plt Count 347 (140-350) 10*3/uL MPV 11.5 (7.4-12.2) FL Immature Gran % (Auto) 0.3 (0-5) % Neut % (Auto) 62.1 (50-80) % Lymph % (Auto) 27.3 (10-50) % [place] % (Auto) 9.0 (5-15) % Eos % (Auto) 1.0 (0-8) % Baso % (Auto) 0.3 (0-1) % Immature Gran # (Auto) 0.03 10*3/UL Neut # (Auto) 5.81 10*3/UL Lymph # (Auto) 2.55 10*3/uL [place] # (Auto) 0.84 H (0.3-0.8) 10*3/UL Eos # (Auto) 0.09 10*3/UL Baso # (Auto) 0.03 10*3/UL WBC Morphology Comment Normal morphology (NORM) Plt Morphology Comment Normal morphology (NORM) RBC Morph Comment Normal morphology (NORM) Sodium 139 (135-145) meq/L Potassium 3.8 (3.8-5.2) meq/L Chloride 107 (98-112) meq/L Carbon Dioxide 27 (23-33) meq/L Anion Gap 5 (5-20) BUN 12 (7-22) mg/dL Creatinine 0.7 (0.50-1.20) mg/dL Estimated GFR (>60 ml/min/1.73m(2)) BUN/Creatinine Ratio 17.14 (6-20) Glucose 101 (78-110) mg/dL Calculated Osmolality 287.0 (267-292) mOsm/kg Calcium 8.4 L (8.7-10.7) mg/dL Troponin I < 0.012 (< 0.040) ng/mL Ur Collection Type Clean catch urine Urine Color Yellow Urine Clarity Slightly cloudy (CLEAR) Urine pH 7.0 (5.0-8.5) Ur Specific [place] 1.020 (1.005-1.030) Urine Protein 30 (NEG) mg/dl Urine Glucose (UA) Negative (NEG) mg/dL Urine Ketones Trace (NEG) Urine Occult Blood Moderate H (NEG) Urine Nitrate Positive H (NEG) Urine Bilirubin Negative (NEG) Urine Urobilinogen 1.0 (0.2) EU/dL Ur Leukocyte Esterase Large (NEG) Urine RBC 1-3 (NONE) /hpf Urine WBC >100 (NONE) Ur Squamous Epith Cells Many (NONE) Ur Renal Epithelial Cell Moderate (NONE) Urine Crystals Moderate Urine Bacteria Moderate (NONE) Urine Casts None (NONE) Urine Mucus Moderate (NONE) Urine Trichomonas None (NONE) Urine Yeast None (NONE) Ur Culture Indicated? Culture set - Vital Signs Vital Signs and I&O: Vital Signs - Last Taken Temperature 97.6 F 11/18/16 05:00 Pulse Rate 75 11/18/16 05:00 Respiratory Rate 20 11/18/16 05:00 Blood Pressure 134/58 11/18/16 05:00 Pulse Ox 95 11/18/16 05:00 Intake and Output (24hr x 4 totals) 11/16/16 11/17/16 11/18/16 11/19/16 05:59 05:59 05:59 05:59 Intake Total 365 Output Total 25 Balance 340 Objective : Exam - General General Appearance: No Acute Distress, Cooperative - GI/Abdominal GI/Abdominal Exam: Normal Bowel Sounds, Non Tender, Non Distended, Soft Additional GI/Abdominal Exam Details: Patient is subcutaneous mass located lateral to her ostomy. This is consistent with a hematoma. There is no erythema. Assessment and Plan - Assessment / Plan Additional Assessment/Plan Details: Subcutaneous hematoma. I talked to her about doing a percutaneous drainage of this hematoma today. She declines have it done
[2016-11-18] MEDS: Pantoprazole Inj 40 MG in Normal Saline Flush 10 ML IVP SCH (09:33)
[2016-11-18] MEDS: DULOXETINE 60 MG CAPSULE PO SCH (09:35)
[2016-11-18] MEDS: Metoprolol TARTRATE Tab 25 MG TAB PO SCH (09:35)
[2016-11-18] MEDS: CLOPIDOGREL 75 MG TABLET PO SCH (09:35)
[2016-11-18] MEDS: Levofloxacin 750mg (Premix) 750 MG in Dextrose 1 BAG IV SCH (09:36)
[2016-11-18] MEDS: AmLODIPine Tab 2.5 MG TABLET PO SCH (09:36)
[2016-11-19] MEDS: DULOXETINE 60 MG CAPSULE PO SCH (09:04)
[2016-11-19] MEDS: Levofloxacin 750mg (Premix) 750 MG in Dextrose 1 BAG IV SCH (09:04)
[2016-11-19] MEDS: Pantoprazole Inj 40 MG in Normal Saline Flush 10 ML IVP SCH (09:04)
[2016-11-19] MEDS: AmLODIPine Tab 2.5 MG TABLET PO SCH (09:05)
[2016-11-19] MEDS: Metoprolol TARTRATE Tab 25 MG TAB PO SCH (09:05)
[2016-11-19] MEDS: CLOPIDOGREL 75 MG TABLET PO SCH (09:05)
--- NOTE | 2016-11-19 11:26 | PDOC(PROG) ---
Interval History: Patient has no complaints she states that she is back to her normal self distal little tired and nice chest pain nausea vomiting Objective : Data - Labs CBC and BMP: 11/18/16 06:14 11/18/16 06:14 Objective : Exam - General General Appearance: Cooperative - Respiratory Respiratory Exam: Clear to Auscultation - Bilaterally, Breathing Non Labored, Normal To Percussion - Cardiovascular Cardiovascular Exam: RRR, No Murmur, No Clicks, No Gallops - GI/Abdominal GI/Abdominal Exam: Normal Bowel Sounds, Non Distended, Soft - Extremities Extremities Exam: No Clubbing Present, No Edema Present, No Cyanosis Present Assessment and Plan - Patient Problems (1) Hematoma Current Visit: Yes Status: Acute (2) Hypertension Current Visit: No Status: Acute (3) UTI (urinary tract infection) Current Visit: No Status: Acute - Assessment / Plan Additional Assessment/Plan Details: #1 urinary tract infection with nausea continue antibiotics this is improved awaiting cultures and sensitivities #2 generalized weakness consult PTOT her was also admitted to the hospital and he takes care her most does all the work he is also having difficulty walking and is being evaluated by PT and OT with home evaluations #3 hypertension stable continue current meds #4 suppressed TSH will defer to primary care physician to maybe decrease her thyroid replacement metastases Photo / Body Diagrams - Uploaded Photos Uploaded Photos:
[2016-11-19 16:25] VITALS: RESP 16; TEMP 98.3
--- NOTE | 2016-11-19 17:46 | DCSUMMARY ---
Hospitalization Summary Hospital Course: Final Discharge Diagnosis: Current Visit Problems Problem Status Priority Diagnosed Code Dehydration Acute E86.0 Hematoma Acute T14.8 Hypothyroidism Acute E03.9 Nausea and vomiting Acute R11.2 Diagnostic Data, Laboratory Data, and Procedures of Signifigance: Laboratory Results 11/17/16 11/18/16 11/18/16 Range/Units 22:02 05:05 06:14 WBC 13.08 H 9.35 (4.8-10.8) 10^3/uL RBC 4.05 L 3.66 L (4.20-5.40) 10^6/uL Hgb 12.3 11.2 L (12.0-16.0) g/dL Hct 38.5 35.6 L (37.0-47.0) % MCV 95.1 97.3 (81-99) FL MCH 30.4 30.6 (27-31) PG MCHC 31.9 L 31.5 L (33-37) g/dL RDW Std Deviation 55.7 H 57.5 H (39-50) fL RDW Coeff of Sharri 16.4 H 16.8 H (11.5-14.5) % Plt Count 387 H 347 (140-350) 10*3/uL MPV 11.4 11.5 (7.4-12.2) FL Immature Gran % (Auto) 0.2 0.3 (0-5) % Neut % (Auto) 64.5 62.1 (50-80) % Lymph % (Auto) 23.6 27.3 (10-50) % Bullitt % (Auto) 10.5 9.0 (5-15) % Eos % (Auto) 0.9 1.0 (0-8) % Baso % (Auto) 0.3 0.3 (0-1) % Immature Gran # (Auto) 0.03 0.03 10*3/UL Neut # (Auto) 8.43 5.81 10*3/UL Lymph # (Auto) 3.09 2.55 10*3/uL Bullitt # (Auto) 1.37 H 0.84 H (0.3-0.8) 10*3/UL Eos # (Auto) 0.12 0.09 10*3/UL Baso # (Auto) 0.04 0.03 10*3/UL WBC Morphology Comment Normal morphology Normal morphology (NORM) Plt Morphology Comment Normal morphology Normal morphology (NORM) RBC Morph Comment Normal morphology Normal morphology (NORM) Sodium 137 139 (135-145) meq/L Potassium 3.6 L 3.8 (3.8-5.2) meq/L Chloride 104 107 (98-112) meq/L Carbon Dioxide 25 27 (23-33) meq/L Anion Gap 8 5 (5-20) BUN 13 12 (7-22) mg/dL Creatinine 0.7 0.7 (0.50-1.20) mg/dL Estimated GFR (>60 ml/min/1.73m(2)) BUN/Creatinine Ratio 18.57 17.14 (6-20) Glucose 100 101 (78-110) mg/dL Calculated Osmolality 283.0 287.0 (267-292) mOsm/kg Calcium 9.0 8.4 L (8.7-10.7) mg/dL Magnesium 1.9 (1.6-2.4) mg/dL Total Bilirubin 0.5 (0.3-1.2) mg/dL AST 26 (8-39) IU/L ALT 20 (9-52) IU/L Alkaline Phosphatase 69 (38-126) IU/L Troponin I 0.016 < 0.012 (< 0.040) ng/mL C-Reactive Protein 0.5 (0.0-0.9) mg/dL Total Protein 6.8 (6.1-8.0) g/dL Albumin 3.6 (3.5-4.8) g/dL Globulin 3.2 (2.50-4.10) g/dL Albumin/Globulin Ratio 1.10 L (1.3-2.0) mg/g Amylase 41 (30-110) U/L Lipase 54 (23-300) IU/L TSH < 0.015 L (0.2700-4.2000) uIU/mL Free T4 3.50 H (0.93-1.71) ng/dL Ur Collection Type Clean catch urine Urine Color Yellow Urine Clarity Slightly cloudy (CLEAR) Urine pH 7.0 (5.0-8.5) Ur Specific Estill 1.020 (1.005-1.030) Urine Protein 30 (NEG) mg/dl Urine Glucose (UA) Negative (NEG) mg/dL Urine Ketones Trace (NEG) Urine Occult Blood Moderate H (NEG) Urine Nitrate Positive H (NEG) Urine Bilirubin Negative (NEG) Urine Urobilinogen 1.0 (0.2) EU/dL Ur Leukocyte Esterase Large (NEG) Urine RBC 1-3 (NONE) /hpf Urine WBC >100 (NONE) Ur Squamous Epith Cells Many (NONE) Ur Renal Epithelial Cell Moderate (NONE) Urine Crystals Moderate Urine Bacteria Moderate (NONE) Urine Casts None (NONE) Urine Mucus Moderate (NONE) Urine Trichomonas None (NONE) Urine Yeast None (NONE) Ur Culture Indicated? Culture set History and Physical pertinent to Admission: Past Medical History Medical History: 1. Coronary artery disease with non-ST AR in July 2016. 2. Hypertension. 3. Hypothyroidism. 4. Chronic hypoxemia supposed to be on oxygen but however she doesn't wear it all the time. She supposed to be on 2 L a day. 5. Recent admission to the hospital for ischemic colitis status post right hemicolectomy. 6. Left abdominal wall hematoma discovered 2 weeks ago. 7. Episode of atrial fibrillation postoperatively Surgical History: History of appendectomy. Status post right hemicolectomy and diversion colostomy for ischemic colitis September 2016 Family History: Reviewed an Not Pertinent Past Social History: Doesn't smoke, rarely drinks no drugs. She moved her from [place] with her in 2014 Tobacco Use: Never Smoker Substance Use Type: None Alcohol Use: Rarely Medication / Allergies Course of Hospitalization: Is a very nice 76-year-old female with past medical history of the previous non- STEMI in 2016, ischemic colitis with right hemicolectomy complicated by A. fib transferred to [facility] there she developed postop hematoma after she was discharged and was readmitted [facility] for one night and then back to the senior care and they told her that the this was going to reabsorb on its own. From the senior care she went back home last week and comes back to the ER for some confusion diagnosed her with the urinary tract infection also CT scan of the abdomen showed the hematoma which is Dr. esvin Muro proposed to drain patient at this time and did not want to drain it since they had told her that this could be reabsorb on its own. Today I spoke to the daughter nurse rn social work PT and OT patient seems to be going pretty urine and back to her baseline I discussed her in detail about the hematoma she will be followed by Dr. esvin Muro as an outpatient if she changes her mind also I suggested she stop the Plavix that contributed to her could contribute to her hematoma of course she knows that she did have a non- STEMI last year but since she has had a active hematoma this would be safer without the Plavix considering the this could to get bigger. The patient and the daughter agreed with this plan she will continue her aspirin for her UTI she will finish another 4 days of Levaquin 500 patient is back to her baseline and has no complaints and is very happy to be discharged home with a home eval by Albertina watkins PTOT and they will be making some improvements and adjustments in her house to make her safer plus home health is being arranged for her as well. On the date of discharge, the patient was examined: Gen.: No acute distress, alert, nontoxic Heart: Regular rate and rhythm, no murmurs, clicks, gallops, or rubs Lungs: Clear to auscultation bilaterally, breathing is nonlabored Abdomen/GI: Normal tones on auscultation, soft, nontender, nondistended hematoma left side of her stoma Musculoskeletal/extremities: No clubbing, cyanosis, or edema Vitals reviewed and are listed below Vital Signs (24 hrs) Temp Pulse Pulse Pulse Resp BP Pulse Ox 11/19/16 16:24 98.3 F 64 16 122/48 99 11/19/16 15:00 60 11/19/16 11:05 97.4 F 56 L 17 112/52 94 11/19/16 11:00 54 L 11/19/16 07:50 98.2 F 71 17 138/60 94 11/19/16 07:00 70 11/19/16 05:01 94 11/19/16 04:37 97.3 F 76 20 148/70 94 11/19/16 03:16 74 11/19/16 00:11 97.8 F 67 20 138/72 93 11/18/16 21:00 72 18 11/18/16 20:05 97.6 F 59 L 18 126/55 96 11/18/16 19:00 72 Assessment and Plan: 1. As per discharge assessments above 2. Disposition: Home 3. Condition on discharge, stable and improved. 4. Diet: regular diet 5. Activities: resume normal activities 6. Follow-Up: 1. PCP Dr. Zhao 2. Dr. esvin Muro next week 7. Medications at the Time of Discharge: 8. Time, care, counseling and coordination of care for this discharge is greater than 30 minutes. Exam - Vitals Vital Signs: Vital Signs Temperature 98.3 F Temperature Source Temporal Artery Scan Pulse Rate [Apical] 72 Pulse Rate [Pulse Oximeter] 64 Pulse Rate 60 Respiratory Rate 16 Blood Pressure [Left Arm] 122/48 Blood Pressure [Right Arm] 139/54 Blood Pressure 157/75 Pulse Ox 99 Oxygen Delivery Method Room Air Height 5 ft 7 in Weight 67.222 kg Patient Problems - Patient Problem List (1) Hematoma Current Visit: Yes Status: Acute (2) Hypertension Current Visit: No Status: Acute (3) UTI (urinary tract infection) Current Visit: No Status: Acute
[2016-11-20] MEDS ORDERED: LEVOTHYROXINE 75 MCG TABLET PO SCH (05:30)
[2016-11-20] MEDS ORDERED: LEVOTHYROXINE 100 MCG TABLET PO SCH (05:30)
--- NOTE | 2016-11-23 11:18 | OTI REPORT ---
Thank you for the referral of Erika Cormier. She was seen on 11/19/16 for an occupational therapy inpatient evaluation. SUBJECTIVE: The patient is a 76-year-old female. The patient reports that she had weakness and came into the hospital with concerns. She is here for observation. The patient's daughter reports the patient has been having increased memory difficulties at home and is worried about her ability to process through information. PAST MEDICAL HISTORY: Past medical history can be found in the patient's medical record. OBJECTIVE FINDINGS: Bed mobility: The patient was able to come from supine to sit independently. She was able to sit edge of bed independently. Range of motion: Upper extremity range of motion was within normal limits. Activities of daily living: Today the patient was able to don and doff her socks independently and dress independently. Ambulation: The patient was able to walk to the sink with stand by assist and complete hygiene activities at sink. Transfers: The patient was able to complete functional transfers with stand by assistance. ASSESSMENT: Physically the patient is doing well; however, cognitively she does have some impairment. Overall she would benefit from cognitive tasks. At home, her normal routine may be just fine for her with basic ADLs. Memory difficulties may indicate that she may need to have somebody assist with her medication management or higher level type activity or new routines. TREATMENT PLAN: Dr. Valerio did come into the room and he was okay with discharging the patient at this point in time. She is physically doing well. Cognitively there are some concerns, but overall the patient should do well in a home environment. INITIAL TREATMENT: Treatment today consisted of the initial evaluation followed by the patient participated in the [place] Cognitive Assessment (MoCA). Executive Function: The patient scored 4/5. Naming: The patient scored 2/3. Attention: The patient scored 4/6. Language: The patient scored 2/3. Abstraction: The patient scored 1/2. Delayed recall: The patient scored 1/5. Orientation: The patient scored 5/6. The patient had a total score of 19/30 which places her in the MILD cognitive impairment range. Her daughter reports that she is noticing more shot term memory loss at home as well. CARL
--- NOTE | 2016-11-23 11:30 | PTI REPORT ---
Thank you for the referral of Erika Cormier. She was seen on 11/19/16 for an inpatient evaluation secondary to weakness. SUBJECTIVE: The patient is a 76-year-old female who has been recently admitted due to a UTI and other internal medical issues. She has been down and out and states she hasn't been up on her feet for a couple of days. She lives with her here in town and he has also been in the hospital in the last couple of days. They are currently doing a home evaluation with him and he is in charge of doing quite a few of the daily house chores. PAST MEDICAL HISTORY: Past medical history can be found in the patient's medical record. OBJECTIVE FINDINGS: General observations: The patient is alert and oriented x3. She is pleasant and cooperative. Range of motion: The patient demonstrates functional range of motion of her upper extremities as well as her lower extremities. Bed mobility: The patient demonstrated the ability to go from supine to sit with stand by assist of one. Transfers: The patient demonstrated the ability to go from sit to stand with stand by assist of one. Ambulation: The patient had her own walker in the room and was proficient with it and ambulated 150 feet with the therapist, needing only verbal cues about directions. We practiced ascending a couple steps as she say she has three of them to get into her home. Strength: The patient demonstrates functional strength with upper and lowers. Balance: The patient's Landa score was 38 and she actually did better than expected. ASSESSMENT: The patient is coming out of feeling poorly over the last two or three days and being bed ridden in the hospital. She is feeling much better with her current plan of care. She needed stand by assist at best for transfers and ambulation. She is demonstrating some weakness and decreased mobility issues due to recent hospitalization but has a good prognosis to regain her base level function fairly quickly. Short-Term Goals: To be met by discharge from inpatient: Patient will be able to perform all bed mobility and transfers independently and safely. Patient will be able to ambulate community distances with least restrictive assistive device independently and safely. Patient will be able to ascend and descend three stairs with least restrictive assistive device independently and safely. Long-Term Goals: To be met following discharge from inpatient: Patient will be able to return home, independent and safe with all activities of daily living and transfers. TREATMENT PLAN: Patient will be seen B.I.D during the week and one time per day over the weekend as an inpatient for upper and lower extremity strengthening, transfers, balance, and increasing ambulatory distance. INITIAL TREATMENT: Treatment today consisted of the initial evaluation activities only. CARL
== END 2016-11-19 18:58 | disposition home or self-care (01) ==
LOC: ER 20:56 → MED/SURG 22:48
PROVIDERS: ADMIT Internal Medicine; ATTEND Internal Medicine
DX: E86.0 Dehydration (principal); L76.32 Postprocedural hematoma of skin and subcutaneous tissue following other procedure; Y83.8 Other surgical procedures as the cause of abnormal reaction of the patient, or of later complication, without mention of misadventure at the time of the procedure; Y73.3 Surgical instruments, materials and gastroenterology and urology devices (including sutures) associated with adverse incidents; N39.0 Urinary tract infection, site not specified
CPT/HCPCS: 36415; 74022; 80048; 80053; 81001; 81003; 82150; 83690; 83735; 84439; 84443; 84484; 85025; 86140; 87077; 87088; 87186; 93005; 93010; 94761; 96361; 96365; 96366; 96374; 96375; 97161; 97163; 99284; J2405; J3490; J7030

== ENCOUNTER 2016-11-25 10:10 | Emergency (ER) | payer OTHER ==
[2016-11-25] MEDS ORDERED: Sodium Chloride 0.9% 1,000 ML PRIMARY IV ONE (10:44)
[2016-11-25] MEDS ORDERED: NORMAL SALINE 10 ML SYRINGE FLUSH IVP PRN (10:44)
[2016-11-25] MEDS ORDERED: ONDANSETRON 4 MG/2 ML VIAL IVP ONE (10:47)
[2016-11-25] MEDS ORDERED: Pantoprazole Inj 40 MG in Normal Saline Flush 10 ML IVP ONE (10:48)
[2016-11-25 11:04] LABS: BASOPHILS # (AUTO) 0.05 10*3/UL; BASOPHILS % (AUTO) 0.4 % (0-1); EOSINOPHILS # (AUTO) 0.04 10*3/UL; EOSINOPHILS % (AUTO) 0.3 % (0-8); HEMATOCRIT 40.6 % (37.0-47.0); HEMOGLOBIN 13.2 g/dL (12.0-16.0); LYMPHOCYTES # (AUTO) 2.79 10*3/uL; MEAN CORPUSCULAR HEMOGLOBIN 30.8 PG (27-31); MEAN CORPUSCULAR HGB CONC 32.5 g/dL (33-37); MEAN CORPUSCULAR VOLUME 94.9 FL (81-99); MEAN PLATELET VOLUME 11.8 FL (7.4-12.2); MONOCYTES # (AUTO) 1.16 10*3/UL (0.3-0.8); MONOCYTES % (AUTO) 9.7 % (5-15); NEUTROPHILS # (AUTO) 7.91 10*3/UL; RED BLOOD COUNT 4.28 10^6/uL (4.20-5.40)
[2016-11-25 11:05] LABS: PLATELET MORPHOLOGY COMMENT NORMAL MORPHOLOGY (NORM); RBC MORPHOLOGY COMMENT NORMAL MORPHOLOGY (NORM); WBC MORPHOLOGY COMMENT NORMAL MORPHOLOGY (NORM)
[2016-11-25 11:12] LABS: BILIRUBIN,URINE NEGATIVE (NEG); COLOR,URINE YELLOW; GLUCOSE, URINE (UA) NEGATIVE (NEG); NITRATE,URINE NEGATIVE (NEG); OCCULT BLOOD,URINE NEGATIVE (NEG); PROTEIN,URINE NEGATIVE (NEG); UROBILINOGEN,URINE 0.2 EU/dL (0.2)
[2016-11-25 11:15] VITALS: TEMP 97.1
[2016-11-25 11:16] LABS: CLARITY,URINE CLEAR (CLEAR)
[2016-11-25 11:17] LABS: URINE SAMPLE TYPE CLEAN CATCH URINE
[2016-11-25 11:18] LABS: BLOOD UREA NITROGEN 15 mg/dL (7-22); BUN/CREATININE RATIO 21.42 (6-20); CALCIUM 9.1 mg/dL (8.7-10.7)
[2016-11-25 11:26] LABS: C-REACTIVE PROTEIN < 0.5 mg/dL (0.0-0.9)
--- NOTE | 2016-11-25 11:41 | EKG ---
[address] [address] Measurements Intervals [place] Rate: 67 P: 82 IA: 201 QRS: 31 QRSD: 69 T: 73 QT: 395 QTc: 410 Interpretive Statements SINUS RHYTHM LOW QRS VOLTAGE NONSPECIFIC T WAVE ABNORMALITY Compared to ECG 11/17/2016 21:29:20 No significant change Electronically Signed On 11-25-16 14:04:08 MDT by Yehuda Daigle [email or web address]
--- NOTE | 2016-11-25 13:46 | DI ---
CT ANGIOGRAM OF THE CHEST, 11/25/2016 12:18 PM : Clinical History: Hypoxia. Elevated D-dimer test. Previous Exam: 07/06/07/06/2015 and 07/06/2016. Scans are performed from the base of the neck to the lower lung bases following IV administration of 65 mL of Isovue 300. Proprietary automated bolus tracking software was used to verify the timing of t he injection. The base of the neck and thoracic inlet are normal. There are no abnormal axillary, supraclavicular, mediastinal, or hilar nodes. There are multiple calcified lymph nodes in both amanda and in the mediast inum. The heart is normal. Calcifications are present in the possible and middle thirds of the LAD. T here is pulmonary arterial hypertension, but there is no evidence of pulmonary embolism or pulmonary embolism with infarction. The lungs are clear and there are no pulmonary nodules or masses. There are punctate calcifications in the spleen as well as the liver and together with the calcifications in t he mediastinum and amanda, this patient most likely has had previous exposure to either TB or histoplas mosis. There is a large hiatal hernia through which mesenteric fat as well as the fundus and body of the stomach have herniated. READIN. There is pulmonary arterial hypertension, without evidence of pulmonary embolism or pulmonary emb olism with infarction. 2. There is no acute infiltrate or effusion. 3. Coronary artery disease. Large hiatal hernia. 4. Calcifications in the hilar and mediastinal lymph nodes as well as punctate calcifications in the liver and spleen indicating previous exposure to either TB or histoplasmosis.
--- NOTE | 2016-11-25 14:00 | DI ---
CT ABDOMEN SCAN WITH IV CONTRAST, 11/25/2016 12:20 PM : Clinical History: Abdominal pain. Vomiting. Previous Exam: 11/16/2016. Scans are performed from the lower lung bases through the liver and kidneys with IV contrast. This is the same bolus of contrast used for the CT angiogram scan of the pulmonary arteries. The lung bases are clear. The liver is normal. Punctate calcifications are present in the liver. The patient is status post cholecystectomy. There is no abnormality of the spleen, pancreas, and adrenal glands. Punctate calcifications are present in the spleen. Both kidneys are normal in size, shape, po sition and contour. There is no hydronephrosis or hydroureter. No renal or ureteral calculi are prese nt. There are no abnormal retrocrural or periaortic nodes. No ascites is present. READIN. Normal CT abdomen scan. 2. Punctate calcifications are present in the liver and spleen indicating previous exposure to eithe r TB or histoplasmosis. CT PELVIS SCAN WITH IV CONTRAST, 11/25/2016 12:20 PM: Clinical History: See above. Previous Exam: 11/16/2016. Scans are performed from just superior to the umbilicus to the symphysis pubis with IV contrast. This is the same bolus of contrast used for the CT scans of the chest and abdomen. Scans through the lower abdomen and pelvis show no masses or abnormal fluid collections. There is no adenopathy. The appendix is not visualized with certainty but there is no inflammatory mass either in the cecal tip or in the right lower quadrant. The small bowel, terminal ileum, and ileocecal valve a re normal. The patient is status post left colectomy with a diversion colostomy in the left lower leora drant and closure of the rectosigmoid colon creating a Gray's pouch. The colon is normal. There is a very small umbilical hernia through which only mesenteric fat has herniated. The previously descri bed hematoma or seroma associated with the colostomy in the left lower quadrant has decreased in size . It is probably half of the volume present on the previous study. There is an old compression fractu re of L1 indicating the patient has severe osteoporosis. READIN. The patient is status post resection of the descending colon and sigmoid colon with no evidence o f a bowel obstruction. The Gray's pouch is unremarkable. 2. Interval decrease in the volume of the hematoma/seroma in proximity to the left lower quadrant il eostomy site. An estimated 50% decrease in size is noted.
[2016-11-25 16:02] VITALS: RESP 20
--- NOTE | 2016-11-25 19:51 | PDOC ---
Abdomen/Flank HPI - General Chief Complaint: Abdomen Pain Stated Complaint: RUQ PAIN Date Seen by Provider: 11/25/16 Time Seen by Provider: 10:15 Source: POSITIVE: Patient, Other (Daughter and ) Exam Limitations: POSITIVE: No limitations Nurse's Notes Reviewed & Considered: Yes - History of Present Illness Initial Comments: The patient is a 76-year-old female who presents to the emergency department with epigastric and right upper quadrant abdominal pain and nausea and vomiting. She had a history of ischemic colitis and required hemicolectomy about 6 weeks ago. Postoperatively she had developed atrial fibrillation with rapid ventricular response a non-STEMI. She was subsequently sent to [place] where she was hospitalized for an additional period of time. While there she ended [facility] and was diagnosed with several urinary tract infections. She also had developed a large hematoma to the lateral side of the ostomy. She had presented here to the hospital last week with vomiting and abdominal pain. She had continued hematoma with no other acute changes on CT. She had been admitted at that time and was evaluated by Dr. Dorsey as well. He had offered to drain the hematoma then however she declined. She did however follow-up with him yesterday and he removed 350 mL from the hematoma with a needle. She states that when she woke up this morning she had some epigastric abdominal pain associated with nausea and vomiting. Every time she tries to eat or drink anything she has increased nausea and vomiting. She states that this is actually been going on off and on for several days and is usually worse in the mornings. She ate a normal dinner last night. She denies any fevers or chills, chest pain or any other associated complaints. She has been having normal stool from the ostomy which seems to have actually improved since draining the hematoma. - Patient Home Medications Home Medications: Home Medications Duloxetine HCl 60 mg PO DAILY 07/06/16 Aspirin [Aspir 81] 81 mg PO DAILY 10/05/16 Levothyroxine Sodium [Levothroid] 175 mcg PO DAILY 10/05/16 Magnesium Oxide 500 mg PO DAILY 10/05/16 Metoprolol Tartrate 25 mg PO DAILY 10/05/16 Amlodipine Besylate 2.5 mg PO DAILY 11/16/16 Pantoprazole Sodium 40 mg PO DAILY 11/16/16 Ondansetron [Zofran Odt] 8 mg PO Q6H PRN #10 tab.rapdis 11/25/16 Pantoprazole Sodium [Protonix] 40 mg PO BID #60 tablet. 11/25/16 - Patient Allergies Allergies/Adverse Reactions: Allergies Allergy/AdvReac Type Severity Reaction Status Date / Time cefdinir AdvReac NOT Verified 11/25/16 10:20 APPLICABLE celecoxib AdvReac NOT Verified 11/25/16 10:20 APPLICABLE cephalexin monohydrate AdvReac NOT Verified 11/25/16 10:20 [From Keflex] APPLICABLE Past Medical History - heen HEENT History: Denies History Cardiovascular History: Hypertension, Arrhythmia Respiratory History: Home Oxygen Use, Other (please comment) Additional Respiratory History: HYPOXEMIA Gastrointestinal History: GERD, Colostomy, Other (please comment) Additional Gastrointestinal History: BOWEL RESECTION WITH COLOSTOMY PLACEMENT ON 10/06/2016 Genitourinary History: Denies History Endocrine History: Hypothyroidism Musculoskeletal History: Other (please comment) Prosthesis or Implant: No Additional Musculoskeletal History: RESTLESS LEG SYNDROME Neurological History: Denies History Blood Disorders: Denies History Psychiatric History: Depression, Anxiety Disorders History of Sexually Transmitted Diseases: No Female Reproductive History: Denies History Obstetrical History: Denies History Cancer History: Denies History In Past Year Been Physically Harmed or Verbally Threatened: No History of MDRO: No History of Other Communicable Diseases: No Tobacco Use: Never Smoker Alcohol Use: None Substance Use Type: None Previous Surgical History: Yes Type / Date of Surgery: HYSTERECTOMY. TUBAL LIGATION. CHOLECYSTECTOMY. TONSILLECTOMY. APPENDECTOMY. COLON RESECTION WITH COLOSTOMY PLACEMENT Anesthesia Reactions: No Malignant Hyperthermia: No Significant Family History: No pertinent family hx Past Medical History Reviewed: Reviewed - No Changes ROS - Limitations ROS Limitations: No Limitations Constitution: DENIES: Chills, Fever Cardiovascular: REPORTS: Denies Cardiac Symptoms Respiratory: REPORTS: Denies Resp Symptoms, Other (She denies having problems with her oxygen however 3 view of the records reveals that she is supposed to be on oxygen 2 L all the time.) Neurological: REPORTS: Denies Neuro Symptoms Gastrointestinal: REPORTS: Abdominal Pain, Nausea, Vomitting. DENIES: Black Stools, Bloody Stools Musculoskeletal: REPORTS: Denies MS Symptoms Genitourinary: REPORTS: Denies Symptoms, Other (She has had several urinary tract infections recently including during her last hospitalization which was treated with Levaquin) Eyes: REPORTS: Denies Symptoms ENT: REPORTS: Denies Symptoms Skin: DENIES: Rash Abdominal/Flank Pain PE - General Appearance General Appearance: POSITIVE: Alert, Cooperative, No Acute Distress - HEENT HEENT: POSITIVE: Head Inspection Nml, Eyes Inspection Nml, Pharynx Inspect. Nml , Dry Mucous Membranes - Neck Neck: POSITIVE: Normal Inspection. NEGATIVE: Lymphadenopathy - Respiratory Respiratory: POSITIVE: No Respiratory Distress, Breath Sounds Normal - Cardiovascular Cardiovascular: POSITIVE: Regular Rate and Rhythm, Heart Sounds Normal Peripheral Pulses: Dorsalis-pedis (R): 2+, Dorsalis-pedis (L): 2+ - Abdomen Abdomen: Soft: (All Quadrants), Normal Bowel Sounds: (All Quadrants), No Guarding: (All Quadrants), No Rebound: (All Quadrants), No Distention: (All Quadrants) Additional Abdominal Details: She has an ostomy in the left lower quadrant, the large hematoma previously noted laterally is significantly reduced. She does have some mild tenderness in the epigastric region without guarding or rebound tenderness. - Skin Skin: POSITIVE: Intact, No Rash - Extremities Extremity: Normal ROM: (All Extremities), Normal Inspection: (All Extremities) - Neurological Neurological: POSITIVE: Oriented X3, certification technician Normal As Tested, Motor Normal, Sensation Normal Abdomen Progress - Results Reviewed by me Xrays/CTs/US Reviewed by me: Yes Discussed with Radiologist: Yes Radiology Findings: CT PE protocol is negative for PE, she does have a large hiatal hernia, no other acute findings per radiologist. CT scan of the abdomen and pelvis reveals no acute findings per radiologist. Lab Results Reviewed: Yes Lab Results:: Laboratory Results 11/25/16 11/25/16 11/25/16 Range/Units 10:44 11:02 11:31 WBC 11.99 H (4.8-10.8) 10^3/uL RBC 4.28 (4.20-5.40) 10^6/uL Hgb 13.2 (12.0-16.0) g/dL Hct 40.6 (37.0-47.0) % MCV 94.9 (81-99) FL MCH 30.8 (27-31) PG MCHC 32.5 L (33-37) g/dL RDW Std Deviation 56.0 H (39-50) fL RDW Coeff of Sharri 16.6 H (11.5-14.5) % Plt Count 322 (140-350) 10*3/uL MPV 11.8 (7.4-12.2) FL Immature Gran % (Auto) 0.3 (0-5) % Neut % (Auto) 66.0 (50-80) % Lymph % (Auto) 23.3 (10-50) % [place] % (Auto) 9.7 (5-15) % Eos % (Auto) 0.3 (0-8) % Baso % (Auto) 0.4 (0-1) % Immature Gran # (Auto) 0.04 10*3/UL Neut # (Auto) 7.91 10*3/UL Lymph # (Auto) 2.79 10*3/uL [place] # (Auto) 1.16 H (0.3-0.8) 10*3/UL Eos # (Auto) 0.04 10*3/UL Baso # (Auto) 0.05 10*3/UL WBC Morphology Comment Normal morphology (NORM) Plt Morphology Comment Normal morphology (NORM) RBC Morph Comment Normal morphology (NORM) D-Dimer 2.01 H (0.00-0.59) mg/L Sodium 138 (135-145) meq/L Potassium 3.7 L (3.8-5.2) meq/L Chloride 101 (98-112) meq/L Carbon Dioxide 27 (23-33) meq/L Anion Gap 10 (5-20) BUN 15 (7-22) mg/dL Creatinine 0.7 (0.50-1.20) mg/dL Estimated GFR (>60 ml/min/1.73m(2)) BUN/Creatinine Ratio 21.42 H (6-20) Glucose 110 (78-110) mg/dL Calculated Osmolality 287.0 (267-292) mOsm/kg Lactic Acid 1.9 (0.70-2.10) MMOL/L Calcium 9.1 (8.7-10.7) mg/dL Magnesium 2.0 (1.6-2.4) mg/dL Total Bilirubin 0.7 (0.3-1.2) mg/dL AST 21 (8-39) IU/L ALT 16 (9-52) IU/L Alkaline Phosphatase 65 (38-126) IU/L Troponin I < 0.012 (< 0.040) ng/mL C-Reactive Protein < 0.5 (0.0-0.9) mg/dL NT-Pro-B Natriuret Pep 420 (0-450) PG/ML Total Protein 7.5 (6.1-8.0) g/dL Albumin 4.0 (3.5-4.8) g/dL Globulin 3.5 (2.50-4.10) g/dL Albumin/Globulin Ratio 1.10 L (1.3-2.0) mg/g Ur Collection Type Clean catch urine Urine Color Yellow Urine Clarity Clear (CLEAR) Urine pH 7.0 (5.0-8.5) Ur Specific [place] 1.010 (1.005-1.030) Urine Protein Negative (NEG) mg/dl Urine Glucose (UA) Negative (NEG) mg/dL Urine Ketones Negative (NEG) Urine Occult Blood Negative (NEG) Urine Nitrate Negative (NEG) Urine Bilirubin Negative (NEG) Urine Urobilinogen 0.2 (0.2) EU/dL Ur Leukocyte Esterase Negative (NEG) Ur Culture Indicated? Culture not set EKG Interpreted/Reviewed By Me:: Yes EKG Interpretation:: POSITIVE: Normal Sinus Rhythm, Normal Rate, Normal Intervals, Normal QRS, Normal ST/T - Patient's Progress MDM / ED Course: Shortly after arrival an IV was established and the patient did receive Zofran 4 mg IV and Protonix 40 mg IV. While she was resting her oxygen saturations dropped into the 70s. She was placed on O2 per nasal cannula. This brought her oxygen levels up into the mid to upper 90s. EKG revealed normal sinus rhythm with no acute changes. Her lab work was unremarkable except for an elevated d-dimer at 2. This was most likely secondary to her recent hematoma however because of her low oxygen level she did undergo CT PE protocol which was negative for PE. She does have a large hiatal hernia however which is the likely source of her current pain and possibly her nausea and vomiting as well. CT scan of her abdomen was otherwise unremarkable and the hematoma was markedly reduced in size. These findings are discussed with the patient. She was advised to increase her Protonix to 40 mg twice a day. She was also given a prescription for Zofran as needed for nausea and vomiting. She was strongly encouraged to wear her oxygen at least at night and monitor her oxygen saturations during the day with her home monitor. She is advised return to the emergency room if increased pain, vomiting or dehydration, fever, increased shortness of breath, any worsening or change in symptoms. - Consult Counseled: POSITIVE: Patient, Family, RE: Lab Results, RE: Radiology Results, RE : DX, RE: Need for F/U Patient Care Time - Estimated PCT Patient Care Time (In Minutes): 55 Vital Signs - Recent Vital Signs Vital Signs: Vital Signs (Last 8 hours) Pulse Resp BP Pulse Ox 11/25/16 14:15 67 20 134/54 98 - VS Reviewed Vital Signs Reviewed: Yes Discharge Clinical Impression: Hiatal hernia, Vomiting, Hypoxia Discharge Disposition: Discharged to Home Condition: Stable Prescriptions / Orders: Pantoprazole Sodium [Protonix] 40 mg PO BID #60 tablet. Ondansetron [Zofran Odt] 8 mg PO Q6H PRN #10 tab.rapdis PRN Reason: Nausea / Vomiting Patient Instructions Given at Discharge: Hiatal Hernia (ED), Acute Nausea and Vomiting (ED) Additional Instructions: The upper abdominal pain and associated nausea and vomiting is most likely related to your hiatal hernia and likely some irritation in your stomach. The CAT scan of your chest did not show any sign of blood clot or pneumonia. The CAT scan of your abdomen also did not show any other sign of infection or obstruction. The hematoma near the stoma is much improved after drainage. Your Oxygen levels to drop when you are resting and you are strongly encouraged to wear her oxygen at least when you are sleeping if not continuously. For the hiatal hernia you should increase your Protonix to 40 mg twice a day. In addition you have been prescribed Zofran 8 mg every 6 hours as needed for nausea. It is also possible that not taking her Cymbalta for the past 3 days might be contributing some to your nausea. Recommend resumption of this medication as prescribed. Return to the emergency room if increased pain or vomiting, dehydration, any worsening or change in symptoms. Recommend follow- up with primary care in 3-5 days. If continued abdominal pain or nausea or vomiting then recommend follow-up with Dr. Dorsey to consider endoscopy. Follow Up With: COLE VELAZQUEZ [Primary Care Provider] -
== END 2016-11-25 14:50 | disposition home or self-care (01) ==
LOC: ER 10:10
DX: K44.9 Diaphragmatic hernia without obstruction or gangrene (principal); R11.2 Nausea with vomiting, unspecified; R09.02 Hypoxemia; R10.11 Right upper quadrant pain; I25.2 Old myocardial infarction; I48.91 Unspecified atrial fibrillation
CPT/HCPCS: 36415; 71275; 74177; 80053; 81003; 83605; 83735; 83880; 84484; 85025; 85379; 86140; 87040; 93005; 93010; 96361; 96374; 96375; 99212; 99284; J2405; J3490; J7030

== ENCOUNTER → 2016-11-25 | Outpatient (CLI) | payer OTHER | LOC: MMPC 09:00 | DX: R11.2 Nausea with vomiting, unspecified (principal); G89.18 Other acute postprocedural pain | CPT/HCPCS: 99212; G0463 ==

== ENCOUNTER 2016-11-28 13:30 | Day surgery (SDC) | payer OTHER ==
[2016-11-28] MEDS ORDERED: Sodium Chloride 0.9% 1,000 ML PRIMARY IV ONE (14:16)
[2016-11-28] MEDS ORDERED: GLUCAGON EMERGENCY KIT 1 MG KIT IVP ONE (14:16)
[2016-11-28] MEDS ORDERED: fentaNYL Inj 100 MCG/2 ML VIAL ONE (14:47)
[2016-11-28] MEDS ORDERED: MIDAZOLAM 5 MG/1 ML ONE (14:48)
[2016-11-28] MEDS ORDERED: LIDOCAINE HCL/PF 2% (20 MG/ML) - 5 ML SYRINGE ONE (14:48)
[2016-11-28] MEDS ORDERED: NORMAL SALINE 10 ML SYRINGE FLUSH IVP PRN (14:49)
--- NOTE | 2016-11-28 14:57 | CONSULT ---
Consult Note - Consult Consult Date: 11/28/16 Reason for Consult: PreOp Consulation : General Surgery Requesting Physician: Dr. Shirley Primary Care Provider: Alejandro Marks MD - History of Present Illness History of Present Illness: Patient is a 76-year-old female who reports she felt something was stuck in her esophagus since last night about 6 PM. She was eating a pork sandwich. Something got stuck. She had terrible pain. She tried to drink but she could not get that down either. She presented to the emergency room today. She was unable to swallow any water in the emergency room. She was unable to handle her own saliva. I am asked to see her for evaluation. She has a presumed foreign body in her esophagus. Patient does not have upper dentures. She really doesn't have a lot of problems with dysphagia. She does not have a lot of heartburn. Review of Systems - Gastrointestinal Gastrointestinal / Abdominal: REPORTS: See HPI Past Medical History Medical History: 1. Coronary artery disease with non-ST RI in July 2016. 2. Hypertension. 3. Hypothyroidism. 4. Chronic hypoxemia supposed to be on oxygen but however she doesn't wear it all the time. She supposed to be on 2 L a day. 5. Recent admission to the hospital for ischemic colitis status post left hemicolectomy. 6. Left abdominal wall hematoma discovered 2 weeks ago. 7. Episode of atrial fibrillation postoperatively Surgical History: History of appendectomy. Tonsillectomy. Hernia repair. Hysterectomy. Status post left hemicolectomy and diversion colostomy for ischemic colitis September 2016. Family History: Reviewed an Not Pertinent Past Social History: Doesn't smoke, rarely drinks no drugs. She moved her from [place] with her in 2014 Tobacco Use: Never Smoker Substance Use Type: None Medication / Allergies Home Medications: Home Medications Medication Instructions Recorded Confirmed Type Duloxetine HCl 60 mg PO DAILY 07/06/16 11/28/16 History Aspirin [Aspir 81] 81 mg PO DAILY 10/05/16 11/28/16 History Levothyroxine Sodium [Levothroid] 175 mcg PO DAILY 10/05/16 11/28/16 History Magnesium Oxide 500 mg PO DAILY 10/05/16 11/28/16 History Metoprolol Tartrate 25 mg PO DAILY 10/05/16 11/28/16 History Amlodipine Besylate 2.5 mg PO DAILY 11/16/16 11/28/16 History Pantoprazole Sodium 40 mg PO DAILY 11/16/16 11/28/16 History Ondansetron [Zofran Odt] 8 mg PO Q6H PRN #10 tab.rapdis 11/25/16 11/28/16 Rx Allergies/Adverse Reactions: Allergies Allergy/AdvReac Type Severity Reaction Status Date / Time cefdinir AdvReac NOT Verified 11/28/16 13:45 APPLICABLE celecoxib AdvReac NOT Verified 11/28/16 13:45 APPLICABLE cephalexin monohydrate AdvReac NOT Verified 11/28/16 13:45 [From Keflex] APPLICABLE Exam - Vitals Vital Signs: Vital Signs Temperature 97.5 F Temperature Source Temporal Artery Scan Pulse Rate [Pulse Oximeter] 78 Respiratory Rate 16 Blood Pressure [Left Arm] 119/36 Pulse Ox 94 Oxygen Delivery Method Room Air Height 5 ft 7 in Weight 65.317 kg - General General Appearance: POSITIVE: Cooperative, Mild Distress - Respiratory Respiratory Exam: POSITIVE: Clear to Auscultation - Bilaterally, Breathing Non Labored - Cardiovascular Cardiovascular Exam: POSITIVE: RRR, No Murmur - GI/Abdominal GI/Abdominal Exam: POSITIVE: Normal Bowel Sounds, Non Tender, Non Distended, Soft - Neurological Neurological Exam: POSITIVE: Alert, Oriented x 3 - Psychiatric Psychiatric Exam: POSITIVE: Normal Affect, Normal Mood Assessment and Plan - Patient Problems (1) Foreign body in esophagus Current Visit: Yes Status: Acute Priority: High Diagnosis Date: 11/27/16 Comment: As patient is unable to swallow it is presumed a foreign body remains in the esophagus. We will proceed with esophagogastroduodenoscopy with biopsy with possible dilation.The procedure has been discussed with the patient in complete yet simple terms including benefits, risks, and alternatives. All questions have been answered. Informed consent has been obtained. Qualifiers: Encounter type: initial encounter Qualified Description: Foreign body in esophagus, initial encounter Qualifier Code(s): (T18.108A) Unspecified foreign body in esophagus causing other injury, initial encounter
[2016-11-28] MEDS ORDERED: Lactated Ringers 1,000 ML PRIMARY IV SCH (15:00)
--- NOTE | 2016-11-28 15:49 | GEN.OPNOTE ---
EGD Operative Note Surgery Date: 11/28/16 Preoperative Diagnosis: Foreign body in the esophagus. Postoperative Diagnosis: Foreign body in the esophagus. Distal esophageal stricture. 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 Procedure: Esophagogastroduodenoscopy with biopsy and balloon dilation to 15 mm. Surgeon: Uriel Dasilva MD Anesthesia Provider: Lorenzo Alejandro CRNA Anesthesia Type: MAC Indications: Patient presented with what felt like a foreign body in her esophagus. She was unable to swallow water in the emergency room. She was given glucagon shortly before the procedure. Findings: Esophagus: [Distal esophageal narrowing. Mucosal changes consistent with Sahni's esophagus] GE Junction : [Small hiatal hernia with esophagitis] Fundus : [Normal] Body : [Normal] Prepyloric : [Normal] Small Intestine : [Normal with duodenal diverticulum] A lubricated flexible upper endoscope was inserted and passed into the esophagus. The scope was slowly advanced. We reached the GE junction. There is some narrowing at the GE junction. The scope was advanced. A meat bolus was in the stomach. It apparently advanced with passing of the scope. The scope was advanced through the stomach and into the duodenum. The duodenum and duodenal bulb were unremarkable with the exception of a duodenal diverticulum. Pyloric channel was widely patent. The entire gastric mucosa was unremarkable. Air was aspirated. The scope was withdrawn into the distal esophagus. There was a small hiatal hernia. There was what appeared to be Sahni's esophagitis in the distal esophagus. Multiple circumferential biopsies were taken. Hemostasis was assured. I passed a balloon dilator. It was inflated to 8 laure which gave us a 15 mm diameter or 45 [place]. This was held in position for 3 minutes. It was deflated and moved slightly more proximal. It was inflated again and held for several minutes. At this point the balloon would pass fully inflated through the distal esophagus. The balloon was deflated and the dilator was removed. The mucosa was inspected. There is a small amount of bleeding but no significant mucosal tears or crackles. The scope was advanced into the stomach. Air was aspirated. The scope was withdrawn into the distal esophagus. Again hemostasis was assured. The scope was brought through the remainder of the esophagus and out hypopharynx under suction completing the procedure. The patient tolerated the procedure well without complication. She was taken to outpatient surgery in stable condition. We will call the results of the biopsies when available. In the meantime will tell her to increase her pantoprazole to twice a day until we get the biopsy results back. Estimated Blood Loss (mL): 3 Fluids: 1000 mL of crystalloid. Pathology: Specimen to pathology was read biopsies of the distal esophagus. Complications: None.
--- NOTE | 2016-11-28 16:23 | PDOC ---
General Adult HPI - General Chief Complaint: General Medical Stated Complaint: can't swallow food or drink Date Seen by Provider: 11/28/16 Time Seen by Provider: 13:40 Source: POSITIVE: Patient, Old records Exam Limitations: POSITIVE: No limitations Nurse's Notes Reviewed & Considered: Yes - History of Present Illness Initial Comment: The patient is a 76-year-old female. She states that last night around 6 PM, about the time she was eating a pork sandwich, she developed dysphagia and difficulty swallowing either food or liquids. She complains of pain with swallowing over the mid substernal area. She states that after she attempts to drink water she regurgitates it. Patient has had a left sided colostomy on 16 October following surgery for ischemic Colyte as. Postoperatively she had a non- STEMI myocardial infarction. No fevers or chills. No diarrhea. No melena, hematochezia, hematemesis, dysuria or hematuria. Have you received a tetanus shot in the past 10 years?: Unknown Body Location Affected: REPORTS: Other (Dysphasia and regurgitation when swallowing liquids or food) Timing: REPORTS: Abrupt Duration: <24 hours (Onset approximately 18 hours [employer]) Severity: Moderate Quality: REPORTS: "Pain", Other (Dysphagia and odynophagia) Context: REPORTS: Other (Swallowing). DENIES: None, Sitting, Standing, Activity , Emotional stress, Coughing, Recent Trauma, Recent Surgery, Sleep, Rest, Lifting, Turning, Bending, Fall, Near Fall Modifying Factors: improves with: Other (Unable to swallow food or liquid) Similar Symptoms Previously: No Recent Care Received: REPORTS: Recently Seen, Treated by MD, Hospitalized, Surgery (As above) Any Prior Injuries Related to Current Complaint?: No - Patient Home Medications Home Medications: Home Medications Duloxetine HCl 60 mg PO DAILY 07/06/16 Aspirin [Aspir 81] 81 mg PO DAILY 10/05/16 Levothyroxine Sodium [Levothroid] 175 mcg PO DAILY 10/05/16 Magnesium Oxide 500 mg PO DAILY 10/05/16 Metoprolol Tartrate 25 mg PO DAILY 10/05/16 Amlodipine Besylate 2.5 mg PO DAILY 11/16/16 Pantoprazole Sodium 40 mg PO DAILY 11/16/16 Ondansetron [Zofran Odt] 8 mg PO Q6H PRN #10 tab.rapdis 11/25/16 - Patient Allergies Allergies/Adverse Reactions: Allergies Allergy/AdvReac Type Severity Reaction Status Date / Time cefdinir AdvReac NOT Verified 11/28/16 13:45 APPLICABLE celecoxib AdvReac NOT Verified 11/28/16 13:45 APPLICABLE cephalexin monohydrate AdvReac NOT Verified 11/28/16 13:45 [From [employer]] APPLICABLE Past Medical History - heen HEENT History: Denies History Cardiovascular History: Hypertension, Arrhythmia Respiratory History: Home Oxygen Use, Other (please comment) Additional Respiratory History: HYPOXEMIA Gastrointestinal History: GERD, Colostomy, Other (please comment) Additional Gastrointestinal History: BOWEL RESECTION WITH COLOSTOMY PLACEMENT ON 10/06/2016 Genitourinary History: Denies History Endocrine History: Hypothyroidism Musculoskeletal History: Other (please comment) Prosthesis or Implant: No Additional Musculoskeletal History: RESTLESS LEG SYNDROME Neurological History: Denies History Blood Disorders: Denies History Psychiatric History: Depression, Anxiety Disorders History of Sexually Transmitted Diseases: No Cancer History: Denies History In Past Year Been Physically Harmed or Verbally Threatened: No History of MDRO: No History of Other Communicable Diseases: No Tobacco Use: Never Smoker Alcohol Use: None Substance Use Type: None Previous Surgical History: Yes Type / Date of Surgery: HYSTERECTOMY. TUBAL LIGATION. CHOLECYSTECTOMY. TONSILLECTOMY. APPENDECTOMY. COLON RESECTION WITH COLOSTOMY PLACEMENT Anesthesia Reactions: No Malignant Hyperthermia: No Significant Family History: No pertinent family hx Past Medical History Reviewed: Reviewed - No Changes ROS - Limitations ROS Limitations: No Limitations Constitution: REPORTS: Denies Symptoms Cardiovascular: REPORTS: Denies Cardiac Symptoms Respiratory: REPORTS: Denies Resp Symptoms Neurological: REPORTS: Denies Neuro Symptoms Gastrointestinal: REPORTS: Vomitting (Odynophagia and dysphagia; regurgitation with swallowing solids or liquids) Endocrine: REPORTS: Denies Symptoms Musculoskeletal: REPORTS: Denies MS Symptoms Genitourinary: REPORTS: Denies Symptoms Eyes: REPORTS: Denies Symptoms ENT: REPORTS: Denies Symptoms Skin: REPORTS: Denies Skin Symptoms Lympathic: REPORTS: Denies Lympathic Symptoms Immunologic: POSITIVE: Denies Symptoms Psychiatric: POSITIVE: Denies Psych Symptoms General Adult Exam - General Appearance General Appearance: POSITIVE: Alert, Cooperative, No Evidence of Trauma, Mild Distress (Due to discomfort with swallowing) - HEENT HEENT: POSITIVE: Head Inspection Nml, Eyes Inspection Nml, Ears Inspection Nml, Nose Inspection Nml, Oral/Dental Inspect. Nml, Pharynx Inspect. Nml, PERRL, EOMI , Other (Most of upper teeth are missing; many lower teeth are missing with diffuse dental decay) - Pupils Pupil Size: 4 mm: Bilateral - Neck Neck: POSITIVE: Normal Inspection, Thyroid Normal - Respiratory Respiratory: POSITIVE: No Respiratory Distress, Breath Sounds Normal, Chest Non- Tender - Cardiovascular Cardiovascular: POSITIVE: Regular Rate & Rhythm, No Murmur, No Gallop, PMI Normal Peripheral Pulses: Radial (R): 2+, Radial (L): 2+ - Abdomen Abdomen: Soft: (All Quadrants), Normal Bowel Sounds: (All Quadrants), Denies Tenderness: (All Quadrants), No Splenomegaly: (All Quadrants), No Hepatomegaly: (All Quadrants), No Guarding: (All Quadrants), No Rebound: (All Quadrants), No Palpable Pulse: (All Quadrants), No Palpabale Mass: (All Quadrants), No Distention: (All Quadrants), No Rigidity: (All Quadrants) Additional Abdominal Details: Functioning colostomy left side of the abdomen - Back Back: POSITIVE: Normal Inspection - Skin Skin: POSITIVE: Normal Color, Warm, Dry, No Rash - Extremities Extremity: Non-Tender: (All Extremities), Normal ROM: (All Extremities), Normal Inspection: (All Extremities) - Neurological / Psychological Neurological: POSITIVE: Oriented X3, registered medical assistant Normal As Tested, Motor Normal, Sensation Normal, 5, 6 General Adult Progress - Patient's Progress Pain Medication Addressed: POSITIVE: Not Applicable School/Work Release Addressed: POSITIVE: Not Applicable Re-Examine Time: 14:05 Re-Examine Comment: Patient observed while she tried to swallow some water. Patient states that swallowing water produced substernal chest pain and she states that she feels like her "esophagus is blocked". She regurgitated the swallow water. IV started and 1 mg of glucagon IV was given with no effect. Case discussed with Dr. Dasilva, surgeon, who will come to the emergency room to further evaluate. Status: POSITIVE: Unchanged, Re-Examined Antibiotics Given: No - Consult Consult (If Yes, Name of Consulting MD & Time Called): Yes (Dr. Dasilva, surgery, [id number]) Consulting MD will see pt:: POSITIVE: In ED Counseled: POSITIVE: Patient, RE: DX, RE: Need for F/U Patient Care Time - Estimated PCT Patient Care Time (In Minutes): 25 Vital Signs - Recent Vital Signs Vital Signs: Vital Signs (Last 8 hours) Temp Pulse Resp BP Pulse Ox 11/28/16 13:47 97.5 F 78 16 119/36 94 - VS Reviewed Vital Signs Reviewed: Yes Discharge Clinical Impression: Obstruction of esophagus Discharge Disposition: Transferred to OR (Patient was seen in the OR by Dr. Dasilva, surgeon, who has taken the patient to surgery for esophagoscopy.) Condition: Stable
[2016-11-28 16:37] VITALS: TEMP 97.6
[2016-11-28 16:39] VITALS: RESP 15
== END 2016-11-28 16:40 | disposition home or self-care (01) ==
LOC: ER 13:30 → SUPCPDRO 13:30 → SDSC 14:45
PROVIDERS: ATTEND Surgery
DX: T18.128A Food in esophagus causing other injury, initial encounter (principal); K22.2 Esophageal obstruction
CPT/HCPCS: 43239; 43249; 96374; 99284 ×2; J1610; J2704; J3010; J2001; J2250; J7030

== ENCOUNTER → 2016-12-03 | Outpatient (CLI) | payer OTHER ==
[2016-12-03 09:05] LABS: BASOPHILS # (AUTO) 0.03 10*3/UL; BASOPHILS % (AUTO) 0.3 % (0-1); EOSINOPHILS % (AUTO) 1.1 % (0-8); HEMATOCRIT 42.6 % (37.0-47.0); HEMOGLOBIN 13.5 g/dL (12.0-16.0); LYMPHOCYTES # (AUTO) 3.74 10*3/uL; MEAN CORPUSCULAR HEMOGLOBIN 30.1 PG (27-31); MEAN CORPUSCULAR HGB CONC 31.7 g/dL (33-37); MEAN CORPUSCULAR VOLUME 95.1 FL (81-99); MEAN PLATELET VOLUME 11.9 FL (7.4-12.2); MONOCYTES # (AUTO) 0.99 10*3/UL (0.3-0.8); MONOCYTES % (AUTO) 11.2 % (5-15); NEUTROPHILS # (AUTO) 3.93 10*3/UL; NEUTROPHILS % (AUTO) 44.7 % (50-80); RED BLOOD COUNT 4.48 10^6/uL (4.20-5.40)
[2016-12-03 09:23] LABS: PLATELET MORPHOLOGY COMMENT NORMAL MORPHOLOGY (NORM); RBC MORPHOLOGY COMMENT NORMAL MORPHOLOGY (NORM); WBC MORPHOLOGY COMMENT NORMAL MORPHOLOGY (NORM)
[2016-12-03 09:26] LABS: BUN/CREATININE RATIO 18.75 (6-20); CALCIUM 9.4 mg/dL (8.7-10.7)
== END ==
LOC: LAB 08:47
PROVIDERS: ATTEND Obstetrics & Gynecology Gynecology
DX: K55.9 Vascular disorder of intestine, unspecified (principal); D64.9 Anemia, unspecified; E87.8 Other disorders of electrolyte and fluid balance, not elsewhere classified
CPT/HCPCS: 36415; 80053; 85025

== ENCOUNTER 2019-07-07 14:00 | Inpatient (IN) ==
[2019-07-07] MEDS ORDERED: Sodium Chloride 0.9% 1,000 ML PRIMARY IV ONE (14:15)
[2019-07-07] MEDS ORDERED: DILTIAZEM 5 MG/ML - 5 ML IV ONE (14:18)
[2019-07-07 14:37] LABS: Hematocrit [HCT] 34.4 % (37.0-47.0); Hemoglobin [HGB] 10.3 g/dL (12.0-16.0); MEAN CORPUSCULAR HGB CONC 29.9 g/dL (33-37); MEAN CORPUSCULAR VOLUME 79.1 FL (81-99); RED BLOOD COUNT 4.35 10^6/uL (4.20-5.40)
[2019-07-07 14:41] LABS: VENOUS PH 7.45 (7.32-7.42)
[2019-07-07 14:48] LABS: BUN/CREATININE RATIO 21.11 (6-20); SERUM ALBUMIN 3.8 g/dL (3.5-4.8)
[2019-07-07 15:07] LABS: BAND NEUTROPHILS % 1 % (0-10); BASOPHILS % (MANUAL) 0 % (0-1); EOSINOPHILS % (MANUAL) 4 % (0-8); MONOCYTES % (MANUAL) 5 % (0-12); NEUTROPHILS % (MANUAL) 81 % (50-80); PLATELET MORPHOLOGY COMMENT SEE COMMENTS (NORM); WBC MORPHOLOGY COMMENT NORMAL MORPHOLOGY (NORM)
[2019-07-07 15:08] LABS: RBC MORPHOLOGY COMMENT SEE COMMENTS (NORM)
[2019-07-07] MEDS ORDERED: Magnesium Sulfate 1gm (Premix) 1 GM/100 ML BAG IV ONE (15:20)
[2019-07-07 15:24] LABS: BILIRUBIN,URINE NEGATIVE (NEG); COLOR,URINE YELLOW (Y); GLUCOSE, URINE (UA) NEGATIVE (NEG); OCCULT BLOOD,URINE LARGE (NEG); PROTEIN,URINE >300 mg/dl (NEG)
[2019-07-07 15:27] LABS: CLARITY,URINE SLIGHTLY CLOUDY (CLEAR)
[2019-07-07 15:28] LABS: BACTERIA,URINE MANY; SQUAMOUS EPITHELIAL CELL,UR FEW; URINE SAMPLE TYPE CATH SPECIMEN; WBC,URINE 25-40
[2019-07-07] MEDS ORDERED: Levofloxacin (Premix) 750 MG/150 ML PIGGYBACK IV ONE (15:36)
[2019-07-07] MEDS ORDERED: Metoprolol TARTRATE Tab 25 MG TAB PO ONE (15:52)
[2019-07-07] MEDS ORDERED: LIDOCAINE W/ SODIUM BICARB 0.5 ML SYR SUBD PRN (18:27)
[2019-07-07] MEDS: Senna Tab 8.6 MG TAB PO SCH (20:37)
[2019-07-07] MEDS: Pravastatin Tab 40 MG TAB PO SCH (20:38)
[2019-07-07] MEDS: Apixaban Tab 2.5 MG TABLET PO SCH (20:38)
[2019-07-07] MEDS: ALPRAZolam Tab 0.25 MG TABLET PO SCH (20:38)
[2019-07-07] MEDS: Ropinirole Tab 0.25 MG TAB PO SCH (20:38)
[2019-07-07] MEDS ORDERED: ALPRAZOLAM 0.25 MG PO SCH (21:00)
[2019-07-07] MEDS ORDERED: Metoprolol TARTRATE Tab 25 MG TAB PO SCH (21:00)
[2019-07-07] MEDS: ACETAMINOPHEN 325 MG TABLET PO PRN (22:18)
[2019-07-08 04:36] LABS: Hematocrit [HCT] 33.6 % (37.0-47.0); Hemoglobin [HGB] 9.9 g/dL (12.0-16.0); MEAN CORPUSCULAR HGB CONC 29.5 g/dL (33-37); MEAN CORPUSCULAR VOLUME 81.8 FL (81-99); RED BLOOD COUNT 4.11 10^6/uL (4.20-5.40)
[2019-07-08 05:09] LABS: BAND NEUTROPHILS % 0 % (0-10); BASOPHILS % (MANUAL) 0 % (0-1); EOSINOPHILS % (MANUAL) 0 % (0-8); METAMYELOCYTES % 1 %; MONOCYTES % (MANUAL) 10 % (0-12); MYELOCYTES % 0 %; NEUTROPHILS % (MANUAL) 65 % (50-80); PROMYELOCYTES % 0 %; WBC MORPHOLOGY COMMENT NORMAL MORPHOLOGY (NORM)
[2019-07-08 05:10] LABS: PLATELET MORPHOLOGY COMMENT SEE COMMENTS (NORM); RBC MORPHOLOGY COMMENT SEE COMMENTS (NORM)
[2019-07-08] MEDS ORDERED: FUROSEMIDE 10 MG/1 ML - 2 ML VIAL IVP SCH (07:00)
[2019-07-08] MEDS: DULOXETINE 60 MG CAPSULE PO SCH (08:10)
[2019-07-08] MEDS: Apixaban Tab 2.5 MG TABLET PO SCH ×2 (08:10→20:16)
[2019-07-08] MEDS: MAGNESIUM OXIDE 400 MG TABLET PO SCH (08:10)
[2019-07-08] MEDS: OMEPRAZOLE 20 MG CAPSULE PO SCH ×2 (08:10→20:15)
[2019-07-08] MEDS: POTASSIUM CHLORIDE 20 MEQ TAB PO SCH (08:11)
[2019-07-08] MEDS: Ropinirole Tab 0.25 MG TAB PO SCH ×2 (08:11→20:16)
[2019-07-08] MEDS: FUROSEMIDE 10 MG/1 ML - 2 ML VIAL IVP SCH (08:12)
[2019-07-08] MEDS: ASPIRIN EC 81 MG TABLET PO SCH (08:12)
[2019-07-08] MEDS: Metoprolol TARTRATE Tab 50 MG TAB PO SCH ×2 (10:19→20:16)
[2019-07-08] MEDS: Levofloxacin (Premix) 750 MG/150 ML PIGGYBACK IV SCH (15:59)
[2019-07-08] MEDS: ACETAMINOPHEN 325 MG TABLET PO PRN (18:06)
[2019-07-08] MEDS: Senna Tab 8.6 MG TAB PO SCH (20:16)
[2019-07-08] MEDS: Pravastatin Tab 40 MG TAB PO SCH (20:16)
[2019-07-08] MEDS: ALPRAZolam Tab 0.25 MG TABLET PO SCH (20:16)
[2019-07-09 05:02] LABS: BASOPHILS # (AUTO) 0.05 10*3/UL; BASOPHILS % (AUTO) 0.4 % (0-1); EOSINOPHILS # (AUTO) 0.08 10*3/UL; EOSINOPHILS % (AUTO) 0.6 % (0-8); Hematocrit [HCT] 33.3 % (37.0-47.0); Hemoglobin [HGB] 9.6 g/dL (12.0-16.0); LYMPHOCYTES # (AUTO) 3.18 10*3/uL; MEAN CORPUSCULAR HGB CONC 28.8 g/dL (33-37); MONOCYTES # (AUTO) 1.71 10*3/UL (0.3-0.8); MONOCYTES % (AUTO) 13.7 % (5-15); NEUTROPHILS # (AUTO) 7.39 10*3/UL; NEUTROPHILS % (AUTO) 59.4 % (50-80); RED BLOOD COUNT 4.06 10^6/uL (4.20-5.40)
[2019-07-09 05:17] LABS: BUN/CREATININE RATIO 16.36 (6-20)
[2019-07-09 05:50] LABS: WBC MORPHOLOGY COMMENT NORMAL MORPHOLOGY (NORM)
[2019-07-09 05:51] LABS: PLATELET MORPHOLOGY COMMENT SEE COMMENTS (NORM); RBC MORPHOLOGY COMMENT SEE COMMENTS (NORM)
[2019-07-09] MEDS: FUROSEMIDE 10 MG/1 ML - 2 ML VIAL IVP SCH ×3 (07:00→14:25)
[2019-07-09] MEDS: MAGNESIUM OXIDE 400 MG TABLET PO SCH (07:01)
[2019-07-09] MEDS: OMEPRAZOLE 20 MG CAPSULE PO SCH ×2 (08:54→20:32)
[2019-07-09] MEDS: Apixaban Tab 2.5 MG TABLET PO SCH ×2 (08:54→20:32)
[2019-07-09] MEDS: DULOXETINE 60 MG CAPSULE PO SCH (08:54)
[2019-07-09] MEDS: Ropinirole Tab 0.25 MG TAB PO SCH ×2 (08:55→20:32)
[2019-07-09] MEDS: POTASSIUM CHLORIDE 20 MEQ TAB PO SCH (08:55)
[2019-07-09] MEDS: ASPIRIN EC 81 MG TABLET PO SCH (09:21)
[2019-07-09] MEDS: Metoprolol TARTRATE Tab 50 MG TAB PO SCH ×2 (09:21→20:32)
[2019-07-09] MEDS: ACETAMINOPHEN 325 MG TABLET PO PRN (13:48)
[2019-07-09] MEDS: Levofloxacin (Premix) 750 MG/150 ML PIGGYBACK IV SCH (15:29)
[2019-07-09] MEDS: Pravastatin Tab 40 MG TAB PO SCH (20:32)
[2019-07-09] MEDS: ALPRAZolam Tab 0.25 MG TABLET PO SCH (20:32)
[2019-07-09] MEDS: Senna Tab 8.6 MG TAB PO SCH (20:33)
[2019-07-10 05:22] LABS: BASOPHILS # (AUTO) 0.04 10*3/UL; BASOPHILS % (AUTO) 0.3 % (0-1); EOSINOPHILS # (AUTO) 0.08 10*3/UL; EOSINOPHILS % (AUTO) 0.7 % (0-8); Hematocrit [HCT] 33.4 % (37.0-47.0); Hemoglobin [HGB] 9.7 g/dL (12.0-16.0); LYMPHOCYTES # (AUTO) 2.98 10*3/uL; MEAN CORPUSCULAR VOLUME 81.7 FL (81-99); MONOCYTES # (AUTO) 1.23 10*3/UL (0.3-0.8); MONOCYTES % (AUTO) 10.3 % (5-15); NEUTROPHILS # (AUTO) 7.61 10*3/UL; NEUTROPHILS % (AUTO) 63.4 % (50-80); RED BLOOD COUNT 4.09 10^6/uL (4.20-5.40)
[2019-07-10 05:29] LABS: BUN/CREATININE RATIO 22.22 (6-20); SERUM ALBUMIN 3.2 g/dL (3.5-4.8)
[2019-07-10 06:01] LABS: PLATELET MORPHOLOGY COMMENT SEE COMMENTS (NORM); RBC MORPHOLOGY COMMENT SEE COMMENTS (NORM); WBC MORPHOLOGY COMMENT NORMAL MORPHOLOGY (NORM)
[2019-07-10] MEDS: MAGNESIUM OXIDE 400 MG TABLET PO SCH (06:51)
[2019-07-10] MEDS: FUROSEMIDE 10 MG/1 ML - 2 ML VIAL IVP SCH ×2 (06:51→13:46)
[2019-07-10] MEDS: OMEPRAZOLE 20 MG CAPSULE PO SCH ×2 (08:42→20:22)
[2019-07-10] MEDS: Metoprolol TARTRATE Tab 50 MG TAB PO SCH ×2 (08:42→20:22)
[2019-07-10] MEDS: Apixaban Tab 2.5 MG TABLET PO SCH ×2 (08:42→20:21)
[2019-07-10] MEDS: ASPIRIN EC 81 MG TABLET PO SCH (08:42)
[2019-07-10] MEDS: Ropinirole Tab 0.25 MG TAB PO SCH ×2 (08:43→20:22)
[2019-07-10] MEDS: POTASSIUM CHLORIDE 20 MEQ TAB PO SCH (08:43)
[2019-07-10] MEDS: DULOXETINE 60 MG CAPSULE PO SCH (08:43)
[2019-07-10] MEDS: ACETAMINOPHEN 325 MG TABLET PO PRN ×2 (10:30→16:14)
[2019-07-10] MEDS ORDERED: cefTRIAXone Inj 2 GM in Sodium Chloride 0.9% 100 ML IV SCH (13:00)
[2019-07-10] MEDS: CEFUROXIME 500 MG TABLET PO SCH ×2 (13:47→20:22)
[2019-07-10] MEDS: Senna Tab 8.6 MG TAB PO SCH (20:21)
[2019-07-10] MEDS: ALPRAZolam Tab 0.25 MG TABLET PO SCH (20:22)
[2019-07-10] MEDS: Pravastatin Tab 40 MG TAB PO SCH (20:22)
[2019-07-11] MEDS: ACETAMINOPHEN 325 MG TABLET PO PRN (01:17)
[2019-07-11 07:09] VITALS: RESP 24
[2019-07-11] MEDS: MAGNESIUM OXIDE 400 MG TABLET PO SCH (07:11)
[2019-07-11] MEDS: FUROSEMIDE 10 MG/1 ML - 2 ML VIAL IVP SCH (07:11)
[2019-07-11 08:45] VITALS: BP 121/79; TEMP 97.8; O2SAT 99
[2019-07-11] MEDS ORDERED: Levofloxacin (Premix) 750 MG/150 ML PIGGYBACK IV SCH (15:00)
== END 2019-07-11 09:00 | disposition swing bed (61) | DRG 690 ==
LOC: ER 14:00 → MED/SURG 17:30
PROVIDERS: ADMIT Internal Medicine; ATTEND Internal Medicine